=== PATIENT | male | born 1950 | race Caucasian/White ===

== ENCOUNTER → 2019-07-08 13:02 | Outpatient (CLI) | payer BC, MEDICARE | END | disposition home or self-care (01) | LOC: D.US 07-05 09:30 | PROVIDERS: ATTEND Nurse Practitioner Family | DX: I12.0 Hypertensive chronic kidney disease with stage 5 chronic kidney disease or end stage renal disease (principal); N18.3 Chronic kidney disease, stage 3 (moderate); N40.0 Benign prostatic hyperplasia without lower urinary tract symptoms ==

== ENCOUNTER → 2020-12-05 19:36 | Outpatient (CLI) | payer MEDICARE, OTHER ==
[2020-11-26 12:47] VITALS: BMI 23.6
[~2020-12-05 19:36] MED LIST: BAYER CHEWABLE81 MG PO; CIPRO500 MG PO; CLEOCIN HCL300 MG PO; COZAAR100 MG PO; FLAGYL500 MG PO; GABAPENTIN100 MG PO; GABAPENTIN300 MG PO; HYDROCODON-ACE1 EA10 PO; LEVAQUIN750 MG PO; LIPITOR20 MG PO; LISINOPRIL5 MG PO; LYRICA200 MG PO; MELATONIN10 M1 PO; MIRALAX17 GM PO; MUPIROCIN22 GM TOPICAL; NAPROSYN500 MG PO; NORVASC5 MG PO; PEPCID40 MG PO; TRAMADOL HCL E100 M1 PO; VITAMIN B-122500 MCG PO; VITAMIN D325 MC1 PO; XALATAN 0.0052.5 ML EACH EYE; ZOFRAN4 MG PO
== END | disposition home or self-care (01) ==
LOC: D.LABREF 19:36
PROVIDERS: ATTEND Orthopaedic Surgery
DX: M16.12 Unilateral primary osteoarthritis, left hip (principal)

== ENCOUNTER → 2020-12-11 13:44 | Outpatient (CLI) | payer MEDICARE, OTHER ==
[2020-11-26 12:47] VITALS: BMI 23.6
== END | disposition home or self-care (01) ==
LOC: D.LAB 13:44
PROVIDERS: ATTEND Internal Medicine Gastroenterology
DX: Z86.19 Personal history of other infectious and parasitic diseases (principal)

== ENCOUNTER 2020-12-18 06:10 | Inpatient (IN) | payer MEDICARE, OTHER ==
[2020-12-17 12:51] LABS: BASOPHILS 0.5 % (0-2); EOSINOPHILS 8.9 % (0-7); HEMATOCRIT 34.1 % (42.0-54.0); IMMATURE GRANULOCYTES 0.2 % (0-5); LYMPHOCYTE ABS# 1.92 10x3/uL (1.32-3.57); LYMPHOCYTES 23.2 % (15-50); MCHC 32.3 g/dL (31.0-37.0); MCV 92.9 fL (80.0-100.0); MEAN PLATELET VOLUME 9.9 fL (7.4-10.4); MONOCYTES 9.8 % (2-11); NEUTROPHIL ABS# 4.74 10x3/uL (1.78-5.38); NEUTROPHILS 57.4 % (40-80); PLATELET COUNT 385 10x3/uL (130-400); RBC 3.67 10x6/uL (4.20-6.10); RDW 13.1 % (11.5-14.5); WBC 8.3 10x3/uL (4.8-10.8)
[2020-12-17 12:57] LABS: BILIRUBIN NEGATIVE (NEGATIVE); KETONE NEGATIVE (NEGATIVE); NITRITE NEGATIVE (NEGATIVE)
[2020-12-17 12:57] LABS: INR 1.08 (0.85-1.17)
[2020-12-17 12:58] LABS: ANION GAP 8.4 mmol/L (8-16); APTT 36.4 SECONDS (22.8-39.4); CALCIUM 8.8 mg/dL (8.5-10.1); CARBON DIOXIDE 29.5 mmol/L (21.0-32.0); CREATININE - SERUM 1.1 mg/dL (0.6-1.3); POTASSIUM - SERUM 3.9 mmol/L (3.5-5.1)
[2020-12-17 13:02] LABS: SARS-CoV-2 ANTIGEN NEGATIVE- SARS-COV-2 (NEGATIVE)
[~2020-12-18] VITALS: Ht 162.6 cm; Wt 63.6 kg
[2020-12-18] VITALS (12 sets, daily range): BP systolic 112–148; BP diastolic 62–78; Ht 162.6 cm; Wt 63.6 kg
--- NOTE | 2020-12-18 09:18 | NUR ---
CAUTERY PAD PLACED ON RIGHT THIGH. PLASMA BLADE USED ON SETTING 6/8. AQUAMANTYS USED ON SETTING 170. CAUTERY PAD LOT#[id number] EXP. 04/05/2022
--- NOTE | 2020-12-18 11:15 | NUR ---
PT RECEIVED TO ROOM 1209 VIA BED FROM RECOVERY. PT AWAKE ALERT AND ORIENTED. PT MOVING AROUND IN BED, RESTLESS. VOICES BEING UNEASY, BUT DOZES RIGHT BACK TO SLEEP. AWAKEN TO ASSESS PT. PT ANSWERS QUESTIONS APPROPRIATELY. IV TO RIGHT WRIST WITH 1/2 NS @ 50ML/HR INFUSING VIA PUMP. SITE WITHOUT REDNESS OR EDEMA. DRESSING TO LEFT ANTERIOR HIP C/D/I. CURTIS AND SCD'S ON BILAT LOWER EXTREMITY. ORIENTED TO CL BED CONTROLS AND ROOM. CL WITHIN REACH. ENCORUAGED TO CALL WITH NEEDS.
--- NOTE | 2020-12-18 17:50 | OP ---
PATIENT NAME: HARISH CABRERA MEDICAL RECORD: [id number] :54 LOCATION:D. D.1209 ADMISSION DATE: SURGEON: ANTWAN RAI DO DATE OF OPERATION: 12/18/2020 PROCEDURE PERFORMED: Left total hip arthroplasty. PREOPERATIVE DIAGNOSIS: Left hip femoral head avascular necrosis. POSTOPERATIVE DIAGNOSIS: Left hip femoral head avascular necrosis. INDICATIONS: Mr. Cabrera is a 70-year-old male who has had left hip pain for quite some time. He has known avascular necrosis. He had an osteomyelitis of the second toe, which he got removed several months ago that healed up and he got to the point where he could not even walk on his left hip due to the pain. I informed him of the risks of this procedure including infection, bleeding, damage to nerves and vessels, need for further surgery, continued pain, fracture, failure of implants, blood clots, damage to nerves or vessels including the superficial cutaneous nerve of the lateral thigh and even and he signed the consent. SURGEON: Antwan Rai DO DESCRIPTION OF THE PROCEDURE: The patient was taken to the operative suite, laid in supine position, given general anesthetic and intubated, given 2 grams of Ancef, 80 mg of gentamicin, and a gram of TXA. He was then moved to the Windom table and positioned. The left hip was prepped and draped in sterile fashion. A timeout was performed. Everyone was in agreement with the correct side, site, patient, and procedure. I then began by making an incision over the tensor fascia eulogio muscle. Made careful dissection down to it, took the fascia anteriorly and the muscle posteriorly and then opened up the rectus interval of the rectus medially, tensor fascia eulogio laterally. I then identified the ascending branch of lateral femoral circumflex and coagulated with Aquamantys and opened up the capsule, put Hohmanns around the neck. I then opened up the capsule, tagged it, and put Hohmanns around the neck of the femur intracapsularly. Cut the femoral neck, removed the head and neck and then removed the pulvinar and ligamentum teres and the labrum. I then reamed up to a 54. A 54 cup was then impacted in and the liner was then impacted into that. I then exposed the femur using a Windom hook also and used a cookie cutter and canal finder, broached up to an 11 and reduced it and it looked a little bit of varus. We then decided to go with a bigger stem obviously and lateralized a little, got to a 12 stem and then reduced a standard neck and it fit very well, was equal lengths to the right off the lesser trochanter on the x-ray. We then dislocated that and removed the trial and irrigated and then put in the actual implant and impacted on the head with standard neck and dual mobility head and reduced it. I then irrigated with 10% povidone iodine and 500 mL of normal saline solution, let it sit for a few minutes, irrigated that out with over a liter of normal saline and then put in Giovanni and vancomycin and tobramycin powder. Closed the tensor fascia eulogio fascia with #1 Vicryl in a [id number] and then a running locking stitch. Ben Roman, certified surgical diversional therapist's assistant student then closed the skin with 2-0 Vicryl in interrupted fashion, ran 4-0 Monocryl on the skin and then put a Prineo glue on the incision. Covered with Telfa and Tegaderm. He was then awakened and taken to recovery in stable condition. OPERATIVE REPORT [id number] HARISH CABRERA BLOOD LOSS: Approximately 250 mL. COMPLICATIONS: None. TRANSINT:[id number] Voice Confirmation ID: [id number] DOCUMENT ID: [id number] ANTWAN RAI DO at 1750 CC: [id number] DICTATION DATE: 12/18/20 1036 BROKE MAN: 12/18/20 1536 [facility] [address] [place] [address]
--- NOTE | 2020-12-18 20:00 | NUR ---
ALERT RESTING IN BED, REPORTS MILD PAIN TO LEFT HIP INCISION AREA, SEE SHIFT ASSESSMENT CALL LIGHT IN REACH
[2020-12-19] VITALS: BP 94/55
[2020-12-19 04:05] VITALS: BP 96/51
[2020-12-19 06:33] LABS: BASOPHILS 0.1 % (0-2); EOSINOPHILS 0.1 % (0-7); IMMATURE GRANULOCYTES 0.3 % (0-5); LYMPHOCYTES 15.7 % (15-50); MCH 30.6 pg (26.0-34.0); MCHC 33.3 g/dL (31.0-37.0); MCV 91.7 fL (80.0-100.0); MEAN PLATELET VOLUME 9.7 fL (7.4-10.4); NEUTROPHIL ABS# 6.06 10x3/uL (1.78-5.38); NEUTROPHILS 67.8 % (40-80); RDW 12.7 % (11.5-14.5); WBC 8.9 10x3/uL (4.8-10.8)
[2020-12-19 06:39] LABS: RBC 2.29 10x6/uL (4.20-6.10)
[2020-12-19 06:40] LABS: ALBUMIN 2.5 g/dL (3.4-5.0); ALKALINE PHOSPHATASE 42 U/L (30-120); ALT (SGPT) 24 U/L (10-68); BILIRUBIN - TOTAL 0.47 mg/dL (0.2-1.3); CALC OSMOLALITY 278 mosm/kg (275-300); CALCIUM 7.8 mg/dL (8.5-10.1); CARBON DIOXIDE 27.1 mmol/L (21.0-32.0); CHLORIDE - SERUM 106 mmol/L (98-107); GLUCOSE 118 mg/dL (74-106); MAGNESIUM - SERUM 1.6 mg/dL (1.8-2.4); PHOSPHOROUS 3.2 mg/dL (2.5-4.9); PLATELET COUNT 307 10x3/uL (130-400); POTASSIUM - SERUM 4.1 mmol/L (3.5-5.1); SODIUM 139 mmol/L (136-145); UREA NITROGEN 12 mg/dL (7-18); eGFR NON AFRICAN AMERICAN 79 mL/min (90-120)
[2020-12-19 07:25] VITALS: BP 97/61
--- NOTE | 2020-12-19 07:30 | NUR ---
AWAKE AND ALERT. ORIENTED X3. NO C/O AT THIS TIME. LUNGS ARE CLEAR BILATERALLY, NO COUGH NOTED. SKIN IS INTACT WTIHOUT REDNESS EXCEPT INCISION TO LEFT GROIN WHICH HAS A DRY INTACT DRESSING IN PLACE. IV TO RIGHT WRIST IS PATENT WITHOUT REDNESS AT INSERTION SITE. DENIES NEEDS.
--- NOTE | 2020-12-19 09:00 | NUR ---
ATE 25% OF BREAKFAST TRAY. REFUSED OFFER OF ALTERNATIVE MEAL. TRANSFUSION INITIATED AT THIS TIME. VSS.
--- NOTE | 2020-12-19 09:15 | NUR ---
TRANSFUSION CONTINUES WITHOUT DIFFICULTY. VSS.
--- NOTE | 2020-12-19 09:30 | NUR ---
REQUESTED AND GIVEN ONE PERCOCET PO FOR C/O LEFT HIP PAIN LEVEL 6. WILL MONITOR.
--- NOTE | 2020-12-19 11:00 | NUR ---
TRANSFUSION CONTINUES WITHOUT COMPLICATIONS. VSS.
--- NOTE | 2020-12-19 11:40 | NUR ---
TRANSFUSION COMPLETED. VSS. SECOND UNIT PRBC UP AT THIS TIME.
--- NOTE | 2020-12-19 11:55 | NUR ---
TRANSFUSION CONTINUES WITHOUT COMPLICATIONS. VSS.
[2020-12-19 11:57] VITALS: BP 115/68
--- NOTE | 2020-12-19 13:00 | NUR ---
ATE ABOUT 25% OF BREAKFAST. DENIES NEEDS. TRANSFUSION CONTINUES WITHOUT COMPLICATIONS. VSS.
--- NOTE | 2020-12-19 13:45 | NUR ---
REQUESTED AND GIVEN ONE PERCOCET PO FOR C/O LEFT HIP PAIN LEVEL 6. WILL MONITOR.
--- NOTE | 2020-12-19 14:30 | NUR ---
TRANSFUSION COMPLETED. VSS. NO SIGNS OF COMPLICATIONS. DENIES NEEDS.
--- NOTE | 2020-12-19 15:45 | NUR ---
RESTING QUIETLY IN BED. DENIES NEEDS.
[2020-12-19 16:19] VITALS: BP 107/79
--- NOTE | 2020-12-19 18:12 | NUR ---
ATE MOST OF SUPPER. DENIES NEEDS. NO CHANGES NOTED.
[2020-12-19 19:52] VITALS: BP 110/68
--- NOTE | 2020-12-19 20:00 | NUR ---
ALERT RESTING IN BED, MEDICATED FOR PAIN, SEE SHIFT ASSESSMENT, CALL LIGHT IN REACH
[2020-12-20 02:30] VITALS: BP 116/65
--- NOTE | 2020-12-20 02:59 | NUR ---
BED ALARM SOUNDING PT FOUND SITTING IN FLOOR BESIDE BED STATES GOT UP TO USE URINAL AND FORGOT TO TAKE OFF SCD'S AND GOT TANGLED IN CORDS AND SIT DOWN IN FLOOR, FLOOR NOTED TO BED WET FROM SPILLED CUPS ON BEDSIDE TABLE, DENIES PAIN OR INJURY, ASSISTED TO STAND AND ASSISTED BACK TO BED NO APPARENT INJURIES, DR RAI NOTIFIED ORDERS RECIEVED FOR XRAY OF LEFT HIP RADIOLOGY NOTIFIED, PT STATES HAS NO FAMILY TO NOTIFY, BED ALARM ON AND CALL LIGHT IN REACH
[2020-12-20 04:45] VITALS: BP 100/57
[2020-12-20 06:55] LABS: ALBUMIN 2.6 g/dL (3.4-5.0); ALKALINE PHOSPHATASE 51 U/L (30-120); ALT (SGPT) 24 U/L (10-68); CALC OSMOLALITY 276 mosm/kg (275-300); CALCIUM 8.3 mg/dL (8.5-10.1); CHLORIDE - SERUM 106 mmol/L (98-107); GLUCOSE 87 mg/dL (74-106); MAGNESIUM - SERUM 1.7 mg/dL (1.8-2.4); PHOSPHOROUS 3.6 mg/dL (2.5-4.9); POTASSIUM - SERUM 3.9 mmol/L (3.5-5.1); PROTEIN - SERUM 5.4 g/dL (6.4-8.2); SODIUM 140 mmol/L (136-145); UREA NITROGEN 11 mg/dL (7-18); eGFR NON AFRICAN AMERICAN 79 mL/min (90-120)
--- NOTE | 2020-12-20 07:30 | NUR ---
AWAKE AND ALERT. ORIENTED X3. NO C/O AT THIS TIME. LUNGS ARE CLEAR BILATERALLY, NO COUGH NOTED. REPORTED USED IS INSTRUCTED. SKIN IS INTACT WITHOUT REDNESS EXCEPT INCISION TO LEFT GROIN AREA WHICH HAS A DRY INTACT DRESSING IN PLACE. SL TO RIGHT WRIST IS PATENT WITHOUT REDNESS AT INSERTION SITE. DENIES NEEDS.
[2020-12-20 07:41] LABS: BASOPHILS 0.3 % (0-2); EOSINOPHILS 3.5 % (0-7); IMMATURE GRANULOCYTES 0.8 % (0-5); LYMPHOCYTE ABS# 1.88 10x3/uL (1.32-3.57); LYMPHOCYTES 19.5 % (15-50); MCH 29.9 pg (26.0-34.0); MCHC 33.6 g/dL (31.0-37.0); MEAN PLATELET VOLUME 9.7 fL (7.4-10.4); MONOCYTES 19.5 % (2-11); NEUTROPHIL ABS# 5.43 10x3/uL (1.78-5.38); NEUTROPHILS 56.4 % (40-80); PLATELET COUNT 303 10x3/uL (130-400); RDW 15.1 % (11.5-14.5); WBC 9.6 10x3/uL (4.8-10.8)
[2020-12-20 07:43] VITALS: BP 123/71
[2020-12-20 07:45] LABS: HEMATOCRIT 29.8 % (42.0-54.0); MCV 89.2 fL (80.0-100.0); RBC 3.34 10x6/uL (4.20-6.10)
--- NOTE | 2020-12-20 08:14 | NUR ---
REQUESTED AND GIVEN ONE PERCOCET PO FOR C/O LEFT HIP PAIN LEVEL 6. WILL MONITOR. BREAKFAST SERVED IN ROOM.
--- NOTE | 2020-12-20 12:03 | MORECARE ---
CASE MANAGEMENT DISCHARGE SUMMARY PATIENT: HARISH CABRERA UNIT: [id number] ADM DATE: 12/19/20 AGE: 70 : 52 SEX: M ROOM/BED: D.1209 AUTHOR: MARCIE MARCUS PHYSICIAN: REFERRING PHYSICIAN: GLENDA RAI DO DATE OF SERVICE: 12/20/20 Case Management Discharge Planning Summary DCP REVIEW SUMMARY ANTICIPATED D/C DATE: EXPECTED LOS : CASE STATUS: DCP Initiated INITIAL REVIEW: 12/19/2020 INITIAL REVIEWER: Shara Nunes FINAL DISCHARGE DISPOSITION: : FINAL REVIEWER: FINAL REVIEW DATE: DCP Focus Questions & Answers - Added on: QUESTION: ANSWER : PROVIDER NETWORKING REVIEW DATE: 12/20/2020 SERVICE TYPE: Home Health Care REVIEWER: Shara Nunes REVIEW DATE: 12/20/2020 SERVICE TYPE: Durable Medical Equipment REVIEWER: Shara Nunes PROVIDER: FINAL PROVIDER? : FINAL DATE/TIME: CT PATIENT: HARISH CABRERA ENCOUNTER: [id number] MEDICAL RECORD#: [id number] ADMISSION DATE: 12/19/2020 DISCHARGE DATE: ATTENDING MD: GLENDA GEORGE : AGE: 70 MARITAL STATUS: M DC PLAN ID: [id number] FACILITY: [facility] PRINTED ON: 12/20/20 12:03 CT All edits/amendments must be made on the electronic document DICTATION DATE: 12/20/201202 CNC SUPERVISOR: DM 12/20/20 1203 RPT#: [id number] DC DATE: STATUS: ADM IN [facility] [address] [place] [address] END OF REPORT
--- NOTE | 2020-12-20 12:21 | NUR ---
CM met with patient at bedside after obtaining verbal consent. CM discussed availability / needs of home health, REHAB and medical equipment. Patient would like care 4 for PT. He also needs a bedside commode. I have faxed to [place] for them to deliver to his home. ROBERT signed and copy on chart. CM to follow and assist as needed.
--- NOTE | 2020-12-20 12:28 | MORECARE ---
CASE MANAGEMENT DISCHARGE SUMMARY PATIENT: HARISH CABRERA UNIT: [id number] ADM DATE: 12/19/20 AGE: 70 : 52 SEX: M ROOM/BED: D.1209 AUTHOR: AMRIT,DOC PHYSICIAN: REFERRING PHYSICIAN: GLENDA RAI DO DATE OF SERVICE: 12/20/20 Case Management Discharge Planning Summary COMMENTS ENTERED DATE: 12/20/20 12:20 CT COMMENT TYPE: Discharge Planning REVIEWER: Shara Nunes CM met with patient at bedside after obtaining verbal consent. CM discussed availability / needs of home health, REHAB and medical equipment. Patient would like care [facility] for PT. He also needs a bedside commode. I have faxed to [place] [facility] for them to deliver to his home. ROBERT signed and copy on chart. CM to follow and assist as needed. DCP REVIEW SUMMARY ANTICIPATED D/C DATE: EXPECTED LOS : CASE STATUS: DCP Initiated INITIAL REVIEW: 12/19/2020 INITIAL REVIEWER: Shara Nunes FINAL DISCHARGE DISPOSITION: : FINAL REVIEWER: FINAL REVIEW DATE: DCP Focus Questions & Answers - Added on: QUESTION: ANSWER : PROVIDER NETWORKING REVIEW DATE: 12/20/2020 SERVICE TYPE: Home Health Care REVIEWER: Shara Nunes REVIEW DATE: 12/20/2020 SERVICE TYPE: Durable Medical Equipment REVIEWER: Shara Nunes PROVIDER: FINAL PROVIDER? : FINAL DATE/TIME: CT PATIENT: HARISH CABRERA ENCOUNTER: [id number] MEDICAL RECORD#: [id number] ADMISSION DATE: 12/19/2020 DISCHARGE DATE: ATTENDING MD: GLENDA GEORGE : AGE: 70 MARITAL STATUS: M DC PLAN ID: [id number] FACILITY: [facility] PRINTED ON: 12/20/20 12:28 CT All edits/amendments must be made on the electronic document DICTATION DATE: 12/20/201227 SOFTWARE DEVELOPER MANAGER: AYDEN 12/20/201227 RPT#: [id number] DC DATE: STATUS: ADM IN [facility] [address] [place] [address] END OF REPORT
[2020-12-20] MEDS ORDERED: ELIQUIS2.5 MG PO (13:04)
[2020-12-20] MEDS ORDERED: PERCOCET 10-321 EAC1 PO (13:05)
--- OUTSIDE RECORDS SUMMARY | 2020-12-20 13:28 | XMS Report ---
Demographics + + + | Address | [address] | | | [place], [place] [address] | + + + | Home Phone | | + + + | Preferred Language | Unknown | + + + | Marital Status | | + + + | Catholic Affiliation | Unknown | + + + | Race | White | + + + | Ethnic Group | Not or | + + + Author + + + | Author | [facility], | | | [facility] | | | [place] | + + + | Organization | [facility], | | | [facility] | | | [place] | + + + | Address | [address] | | | [place] [address] | | | | + + + | Phone | [phone] | + + + Care Team Providers + +------+ + | Care Workers Compensation Attorney Name | Role | Phone | + +------+ + | ANDRÉS CABALLERO | 3 | [phone] | + +------+ + | ANDRÉS CABALLERO | 4 | [phone] | + +------+ + Reason for Referral Reason for Visit Avascular necrosis of bone of hip Assessment No assessment recorded. Patient Targets + + + + | Encounter Date | Instructions | Goals | | | | | | | | | + + + + | 12/20/2020 | | | | | | | | | | | + + + + Plan of Treatment + + + + + + + | Reminders | | Order | Submit | Provider | Details | | | | Date | Date | | | | | | | | | | | | | | | | | | | | | | | | | | | | | | | + + + + + + + | | | | | | | | | | | | Agueda | | | | | 1 09:20AM | | Felisha | | | | | | | , [employer]PERVIS[employer] | | | | POST | | | | | | Appointme | OP VISIT | | | | | | nts | | | | | | | | | | | | | | | | | | | | | | | | | | | | | | | | | | | | | | | | | | | | | | | | | | | | | | | | | | | | | | + + + + + + + | | None | | | | | | | recorded. | | | | | | | | | | | | | | | | | | | | Lab | | | | | | | | | | | | | | | | | | | | | | | | | | | | | | | | | | | | | | | | | | | | | | | | | | | | | | | | | | | | | | + + + + + + + | | | | | | | | | | | | National | | | | | 1 | | Park | | | | | | 1 | Medical | | | | | | | Center, | | | Referral | orthopedi | | | [address] | | | | c | | | Medical | | | | referral | | | Pk, Hot | | | | | | | [place], | | | | | | | [place], | | | | | | | [address], Ph | | | | | | | (501) | | | | | | | [phone] | | | | | | | | | | | | | | | | | | | | | | | | | | | | | | + + + + + + + | | None | | | | | | | recorded. | | | | | | | | | | | | | | | | | | | | | | | | | | | Procedure | | | | | | | s | | | | | | | | | | | | | | | | | | | | | | | | | | | | | | | | | | | | | | | | | | | | | | | | | | | | | | | | | | | | | | + + + + + + + | | None | | | | | | | recorded. | | | | | | | | | | | | | | | | | | | | | | | | | | | Surgeries | | | | | | | | | | | | | | | | | | | | | | | | | | | | | | | | | | | | | | | | | | | | | | | | | | | | | | | | | | | | | | + + + + + + + | | None | | | | | | | recorded. | | | | | | | | | | | | | | | | | | | | | | | | | | | Imaging | | | | | | | | | | | | | | | | | | | | | | | | | | | | | | | | | | | | | | | | | | | | | | | | | | | | | | | | | | | | | | + + + + + + + Results +--------+--------+--------+--------+--------+--------+--------+--------+ | Date | Name | Descri | Value | Unit | Range | Abnorm | Provid | | | | ption | | | | al | er | | | | | | | | Flag | Detail | | | | | | | | | | | | | | | | | | | | | | | | | | | | | | | | | | | | | | | | | | | | | | | | | | | | | | | +--------+--------+--------+--------+--------+--------+--------+--------+ | 03/15/ | CBC w/ | | 0.5 | % | 0-2 | normal | | | 2021 | auto | | | | | | | | | diff | | | | | | | | | | | | | | | | | | | | | | | | | | | | | | | | | | | | | | | | | | | | | | basoph | | | | | Nation | | | | il % | | | | | al | | | | | | | | | Park | | | | | | | | | Medica | | | | | | | | | l | | | | | | | | | Center | | | | | | | | | | | | | | | | | | | | | | | | | | | | | | | | | | | | | | | | | | | | | | | | | | | | | | | | | | | | | | | | | | | | | | | | | | | | | | | | | | | | | | | | | | | | | | | | | | | | | | | | | | | | | | | | | | | | | | | | | | | | | | | | | | | | | | | 1908 | | | | | | | | | [address] | | | | | [address] | [address], | | | | | | | | | Hot | | | | | | | | | Spring | | | | | | | | | s, [place], | | | | | | | | | | | | | | | | | | [address]- | | | | | | | | | [address], | | | | | | | | | Ph | | | | | | | | | (501) | | | | | | | | | 321[address]10 | | | | | | | | | 00 | | | | | | | | | | | | | | | | | | | | | | | | | | | | | | | | | | | | | | | | | | | | | | | | | | | | | | | | | | | | | | | | | | | | | | | | | | | | | | | | | | | | | | | | | | | | | | | | | | | | +--------+--------+--------+--------+--------+--------+--------+--------+ | 03/15/ | CBC w/ | | 8.9 | % | 0-7 | high | | | 2021 | auto | | | | | | | | | diff | | | | | | | | | | | | | | | | | | | | | | | | | | | | | | | | | | | | | | | | | | | | | | eosino | | | | | Nation | | | | phils | | | | | al | | | | | | | | | Park | | | | | | | | | Medica | | | | | | | | | l | | | | | | | | | Center | | | | | | | | | | | | | | | | | | | | | | | | | | | | | | | | | | | | | | | | | | | | | | | | | | | | | | | | | | | | | | | | | | | | | | | | | | | | | | | | | | | | | | | | | | | | | | | | | | | | | | | | | | | | | | | | | | | | | | | | | | | | | | | | | | | | | | | 1908 | | | | | | | | | [address] | | | | | | | | | [address], | | | | | | | | | Hot | | | | | | | | | Spring | | | | | | | | | s, [place], | | | | | | | | | | | | | | | | | | [address]- | | | | | | | | | [address], | | | | | | | | | Ph | | | | | | | | | (501) | | | | | | | | | 321[address]10 | | | | | | | | | 00 | | | | | | | | | | | | | | | | | | | | | | | | | | | | | | | | | | | | | | | | | | | | | | | | | | | | | | | | | | | | | | | | | | | | | | | | | | | | | | | | | | | | | | | | | | | | | | | | | | | | +--------+--------+--------+--------+--------+--------+--------+--------+ | 03/15/ | CBC w/ | | 34.1 | % | 42.0-5 | low | | | 2021 | auto | | | | 4.0 | | | | | diff | | | | | | | | | | | | | | | | | | | | | | | | | | | | | | | | | | | | | | | | | | | | | | HCT | | | | | Nation | | | | vfr | | | | | al | | | | bld | | | | | Park | | | | auto | | | | | Medica | | | | | | | | | l | | | | | | | | | Center | | | | | | | | | | | | | | | | | | | | | | | | | | | | | | | | | | | | | | | | | | | | | | | | | | | | | | | | | | | | | | | | | | | | | | | | | | | | | | | | | | | | | | | | | | | | | | | | | | | | | | | | | | | | | | | | | | | | | | | | | | | | | | | | | | | | | | | 1908 | | | | | | | | | [address] | | | | | | | | | [address], | | | | | | | | | Hot | | | | | | | | | Spring | | | | | | | | | s, [place], | | | | | | | | | | | | | | | | | | [address]- | | | | | | | | | [address], | | | | | | | | | Ph | | | | | | | | | (501) | | | | | | | | | 321[address]10 | | | | | | | | | 00 | | | | | | | | | | | | | | | | | | | | | | | | | | | | | | | | | | | | | | | | | | | | | | | | | | | | | | | | | | | | | | | | | | | | | | | | | | | | | | | | | | | | | | | | | | | | | | | | | | | | +--------+--------+--------+--------+--------+--------+--------+--------+ | 03/15/ | CBC w/ | | 11.0 | g/dL | 13.5-1 | low | | | 2021 | auto | | | | 7.5 | | | | | diff | | | | | | | | | | | | | | | | | | | | | | | | | | | | | | | | | | | | | | | | | | | | | | hemogl | | | | | Nation | | | | obin | | | | | al | | | | | | | | | Park | | | | | | | | | Medica | | | | | | | | | l | | | | | | | | | Center | | | | | | | | | | | | | | | | | | | | | | | | | | | | | | | | | | | | | | | | | | | | | | | | | | | | | | | | | | | | | | | | | | | | | | | | | | | | | | | | | | | | | | | | | | | | | | | | | | | | | | | | | | | | | | | | | | | | | | | | | | | | | | | | | | | | | | | [address] | | | | | | | | | [address] | | | | | | | | | Hot | | | | | | | | | Spring | | | | | | | | | s, [place], | | | | | | | | | | | | | | | | | | [address]- | | | | | | | | | [address], | | | | | | | | | Ph | | | | | | | | | (501) | | | | | | | | | 321[address]10 | | | | | | | | | 00 | | | | | | | | | | | | | | | | | | | | | | | | | | | | | | | | | | | | | | | | | | | | | | | | | | | | | | | | | | | | | | | | | | | | | | | | | | | | | | | | | | | | | | | | | | | | | | | | | | | | +--------+--------+--------+--------+--------+--------+--------+--------+ | 03/15/ | CBC w/ | | 0.2 | % | 0-5 | normal | | | 2021 | auto | | 0.2 | | | | | | | diff | | | | | | | | | | | | | | | | | | | | | | | | | | | | | | | | | | | | | | | | | | | | | | imm | | | | | Nation | | | | granul | | | | | al | | | | ocytes | | | | | Park | | | | bld | | | | | Medica | | | | ql | | | | | l | | | | auto | | | | | Center | | | | | | | | | | | | | | | | | | | | | | | | | | | | | | | | | | | | | | | | | | | | | | | | | | | | | | | | | | | | | | | | | | | | | | | | | | | | | | | | | | | | | | | | | | | | | | | | | | | | | | | | | | | | | | | | | | | | | | | | | | | | | | | | | | | | | | | 1908 | | | | | | | | | [address] | | | [address] | | | | | | | | | Hot | | | | | | | | | Spring | | | | | | | | | s, [place], | | | | | | | | | | | | | | | | | | [address]- | | | | | | | | | [address], | | | | | | | | | Ph | | | | | | | | | (501) | | | | | | | | | 321[address]10 | | | | | | | | | 00 | | | | | | | | | | | | | | | | | | | | | | | | | | | | | | | | | | | | | | | | | | | | | | | | | | | | | | | | | | | | | | | | | | | | | | | | | | | | | | | | | | | | | | | | | | | | | | | | | | | | +--------+--------+--------+--------+--------+--------+--------+--------+ | 03/15/ | CBC w/ | | 1.92 | 10x3/u | 1.32-3 | normal | | | 2021 | auto | | | L | .57 | | | | | diff | | | | | | | | | | | | | | | | | | | | | | | | | | | | | | | | | | | | | | | | | | | | | | absolu | | | | | Nation | | | | te | | | | | al | | | | lympho | | | | | Park | | | | cyte | | | | | Medica | | | | count | | | | | l | | | | | | | | | Center | | | | | | | | | | | | | | | | | | | | | | | | | | | | | | | | | | | | | | | | | | | | | | | | | | | | | | | | | | | | | | | | | | | | | | | | | | | | | | | | | | | | | | | | | | | | | | | | | | | | | | | | | | | | | | | | | | | | | | | | | | | | | | | | | | | | | | | [address] | | | | | | | | | [address] | | | | | | | | | Hot | | | | | | | | | Spring | | | | | | | | | s, [place], | | | | | | | | | | | | | | | | | | [address]- | | | | | | | | | [address], | | | | | | | | | Ph | | | | | | | | | (501) | | | | | | | | | 321[address]10 | | | | | | | | | 00 | | | | | | | | | | | | | | | | | | | | | | | | | | | | | | | | | | | | | | | | | | | | | | | | | | | | | | | | | | | | | | | | | | | | | | | | | | | | | | | | | | | | | | | | | | | | | | | | | | | | +--------+--------+--------+--------+--------+--------+--------+--------+ | 03/15/ | CBC w/ | | 23.2 | % | 15-50 | normal | | | 2021 | auto | | | | | | | | | diff | | | | | | | | | | | | | | | | | | | | | | | | | | | | | | | | | | | | | | | | | | | | | | lympho | | | | | Nation | | | | cytes | | | | | al | | | | | | | | | Park | | | | | | | | | Medica | | | | | | | | | l | | | | | | | | | Center | | | | | | | | | | | | | | | | | | | | | | | | | | | | | | | | | | | | | | | | | | | | | | | | | | | | | | | | | | | | | | | | | | | | | | | | | | | | | | | | | | | | | | | | | | | | | | | | | | | | | | | | | | | | | | | | | | | | | | | | | | | | | | | | | | | | | | | [address] | | | | | | | | | [address] | | | | | | | | | Hot | | | | | | | | | Spring | | | | | | | | | s, [place], | | | | | | | | | | | | | | | | | | [address]- | | | | | | | | | [address], | | | | | | | | | Ph | | | | | | | | | (501) | | | | | | | | | 321[address]10 | | | | | | | | | 00 | | | | | | | | | | | | | | | | | | | | | | | | | | | | | | | | | | | | | | | | | | | | | | | | | | | | | | | | | | | | | | | | | | | | | | | | | | | | | | | | | | | | | | | | | | | | | | | | | | | | +--------+--------+--------+--------+--------+--------+--------+--------+ | 03/15/ | CBC w/ | | 30.0 | pg | 26.0-3 | normal | | | 2021 | auto | | | | 4.0 | | | | | diff | | | | | | | | | | | | | | | | | | | | | | | | | | | | | | | | | | | | | | | | | | | | | | [facility] | | | | | Nation | | | | | | | | | al | | | | | | | | | Park | | | | | | | | | Medica | | | | | | | | | l | | | | | | | | | Center | | | | | | | | | | | | | | | | | | | | | | | | | | | | | | | | | | | | | | | | | | | | | | | | | | | | | | | | | | | | | | | | | | | | | | | | | | | | | | | | | | | | | | | | | | | | | | | | | | | | | | | | | | | | | | | | | | | | | | | | | | | | | | | | | | | | | | | [address] | | | | | | | | | [address] | | | | | | | | | Hot | | | | | | | | | Spring | | | | | | | | | s, [place], | | | | | | | | | | | | | | | | | | [address]- | | | | | | | | | [address], | | | | | | | | | Ph | | | | | | | | | (501) | | | | | | | | | 321[address]10 | | | | | | | | | 00 | | | | | | | | | | | | | | | | | | | | | | | | | | | | | | | | | | | | | | | | | | | | | | | | | | | | | | | | | | | | | | | | | | | | | | | | | | | | | | | | | | | | | | | | | | | | | | | | | | | | +--------+--------+--------+--------+--------+--------+--------+--------+ | 03/15/ | CBC w/ | | 32.3 | g/dL | 31.0-3 | normal | | | 2021 | auto | | | | 7.0 | | | | | diff | | | | | | | | | | | | | | | | | | | | | | | | | | | | | | | | | | | | | | | | | | | | | | [facility] | | | | | Nation | | | | RBC | | | | | al | | | | auto-m | | | | | Park | | | | cnc | | | | | Medica | | | | | | | | | l | | | | | | | | | Center | | | | | | | | | | | | | | | | | | | | | | | | | | | | | | | | | | | | | | | | | | | | | | | | | | | | | | | | | | | | | | | | | | | | | | | | | | | | | | | | | | | | | | | | | | | | | | | | | | | | | | | | | | | | | | | | | | | | | | | | | | | | | | | | | | | | | | | [address] | | | | | | | | | [address] | | [address] | | | | | | | | | Hot | | | | | | | | | Spring | | | | | | | | | s, [place], | | | | | | | | | | | | | | | | | | [address]- | | | | | | | | | [address], | | | | | | | | | Ph | | | | | | | | | (501) | | | | | | | | | 321[address]10 | | | | | | | | | 00 | | | | | | | | | | | | | | | | | | | | | | | | | | | | | | | | | | | | | | | | | | | | | | | | | | | | | | | | | | | | | | | | | | | | | | | | | | | | | | | | | | | | | | | | | | | | | | | | | | | | +--------+--------+--------+--------+--------+--------+--------+--------+ | 03/15/ | CBC w/ | | 92.9 | fL | 80.0-1 | normal | | | 2021 | auto | | | | 00.0 | | | | | diff | | | | | | | | | | | | | | | | | | | | | | | | | | | | | | | | | | | | | | | | | | | | | | MCV | | | | | Nation | | | | | | | | | al | | | | | | | | | Park | | | | | | | | | Medica | | | | | | | | | l | | | | | | | | | Center | | | | | | | | | | | | | | | | | | | | | | | | | | | | | | | | | | | | | | | | | | | | | | | | | | | | | | | | | | | | | | | | | | | | | | | | | | | | | | | | | | | | | | | | | | | | | | | | | | | | | | | | | | | | | | | | | | | | | | | | | | | | | | | | | | | | | | | [address] | | | | | | | | | [address] | | [address], | | | | | | | | | Hot | | | | | | | | | Spring | | | | | | | | | s, [place], | | | | | | | | | | | | | | | | | | [address]- | | | | | | | | | [address], | | | | | | | | | Ph | | | | | | | | | (501) | | | | | | | | | 321[address]10 | | | | | | | | | 00 | | | | | | | | | | | | | | | | | | | | | | | | | | | | | | | | | | | | | | | | | | | | | | | | | | | | | | | | | | | | | | | | | | | | | | | | | | | | | | | | | | | | | | | | | | | | | | | | | | | | +--------+--------+--------+--------+--------+--------+--------+--------+ | 03/15/ | CBC w/ | | 9.8 | % | 2-11 | normal | | | 2021 | auto | | | | | | | | | diff | | | | | | | | | | | | | | | | | | | | | | | | | | | | | | | | | | | | | | | | | | | | | | monocy | | | | | Nation | | | | jeyson | | | | | al | | | | | | | | | Park | | | | | | | | | Medica | | | | | | | | | l | | | | | | | | | Center | | | | | | | | | | | | | | | | | | | | | | | | | | | | | | | | | | | | | | | | | | | | | | | | | | | | | | | | | | | | | | | | | | | | | | | | | | | | | | | | | | | | | | | | | | | | | | | | | | | | | | | | | | | | | | | | | | | | | | | | | | | | | | | | | | | | | | | [address] | | | | | | | | | [address] | | | | | | | | | Hot | | | | | | | | | Spring | | | | | | | | | s, [place], | | | | | | | | | | | | | | | | | | [address]- | | | | | | | | | [address], | | | | | | | | | Ph | | | | | | | | | (501) | | | | | | | | | 321[address]10 | | | | | | | | | 00 | | | | | | | | | | | | | | | | | | | | | | | | | | | | | | | | | | | | | | | | | | | | | | | | | | | | | | | | | | | | | | | | | | | | | | | | | | | | | | | | | | | | | | | | | | | | | | | | | | | | +--------+--------+--------+--------+--------+--------+--------+--------+ | 03/15/ | CBC w/ | | 9.9 | fL | 7.4-10 | normal | | | 2021 | auto | | | | .4 | | | | | diff | | | | | | | | | | | | | | | | | | | | | | | | | | | | | | | | | | | | | | | | | | | | | | mean | | | | | Nation | | | | platel | | | | | al | | | | et | | | | | Park | | | | volume | | | | | Medica | | | | | | | | | l | | | | | | | | | Center | | | | | | | | | | | | | | | | | | | | | | | | | | | | | | | | | | | | | | | | | | | | | | | | | | | | | | | | | | | | | | | | | | | | | | | | | | | | | | | | | | | | | | | | | | | | | | | | | | | | | | | | | | | | | | | | | | | | | | | | | | | | | | | | | | | | | | | [address] | | | | | | | | | [address] | | | | | | | | | Hot | | | | | | | | | Spring | | | | | | | | | s, [place], | | | | | | | | | | | | | | | | | | [address]- | | | | | | | | | [address]752, | | | | | | | | | Ph | | | | | | | | | (501) | | | | | | | | | 321[address]10 | | | | | | | | | 00 | | | | | | | | | | | | | | | | | | | | | | | | | | | | | | | | | | | | | | | | | | | | | | | | | | | | | | | | | | | | | | | | | | | | | | | | | | | | | | | | | | | | | | | | | | | | | | | | | | | | +--------+--------+--------+--------+--------+--------+--------+--------+ | 03/15/ | CBC w/ | | 4.74 | 10x3/u | 1.78-5 | normal | | | 2021 | auto | | | L | .38 | | | | | diff | | | | | | | | | | | | | | | | | | | | | | | | | | | | | | | | | | | | | | | | | | | | | | neutro | | | | | Nation | | | | jessie | | | | | al | | | | abs# | | | | | Park | | | | | | | | | Medica | | | | | | | | | l | | | | | | | | | Center | | | | | | | | | | | | | | | | | | | | | | | | | | | | | | | | | | | | | | | | | | | | | | | | | | | | | | | | | | | | | | | | | | | | | | | | | | | | | | | | | | | | | | | | | | | | | | | | | | | | | | | | | | | | | | | | | | | | | | | | | | | | | | | | | | | | | | | 1908 | | | | | | | | | [address] | | | | | | | | | [address], | | | | | | | | | Hot | | | | | | | | | Spring | | | | | | | | | s, [place], | | | | | | | | | | | | | | | | | | [address]- | | | | | | | | | [address]752, | | | | | | | | | Ph | | | | | | | | | (501) | | | | | | | | | 321-10 | | | | | | | | | 00 | | | | | | | | | | | | | | | | | | | | | | | | | | | | | | | | | | | | | | | | | | | | | | | | | | | | | | | | | | | | | | | | | | | | | | | | | | | | | | | | | | | | | | | | | | | | | | | | | | | | +--------+--------+--------+--------+--------+--------+--------+--------+ | 03/15/ | CBC w/ | | 57.4 | % | 40-80 | normal | | | 2021 | auto | | | | | | | | | diff | | | | | | | | | | | | | | | | | | | | | | | | | | | | | | | | | | | | | | | | | | | | | | neutro | | | | | Nation | | | | phils | | | | | al | | | | nfr | | | | | Park | | | | bld | | | | | [facility] | | | | auto | | | | | l | | | | | | | | | Center | | | | | | | | | | | | | | | | | | | | | | | | | | | | | | | | | | | | | | | | | | | | | | | | | | | | | | | | | | | | | | | | | | | | | | | | | | | | | | | | | | | | | | | | | | | | | | | | | | | | | | | | | | | | | | | | | | | | | | | | | | | | | | | | | | | | | | | 1908 | | | | | | | | | [address] | | | | [address] | [address], | | | | | | | | | Hot | | | | | | | | | Spring | | | | | | | | | s, [place], | | | | | | | | | | | | | | | | | | [address]- | | | | | | | | | [address]752, | | | | | | | | | Ph | | | | | | | | | (501) | | | | | | | | | 321-10 | | | | | | | | | 00 | | | | | | | | | | | | | | | | | | | | | | | | | | | | | | | | | | | | | | | | | | | | | | | | | | | | | | | | | | | | | | | | | | | | | | | | | | | | | | | | | | | | | | | | | | | | | | | | | | | | +--------+--------+--------+--------+--------+--------+--------+--------+ | 03/15/ | CBC w/ | | 385 | 10x3/u | 130-40 | normal | | | 2021 | auto | | | L | 0 | | | | | diff | | | | | | | | | | | | | | | | | | | | | | | | | | | | | | | | | | | | | | | | | | | | | | platel | | | | | Nation | | | | et # | | | | | al | | | | bld | | | | | Park | | | | auto | | | | | [facility] | | | | | | | | | l | | | | | | | | | Center | | | | | | | | | | | | | | | | | | | | | | | | | | | | | | | | | | | | | | | | | | | | | | | | | | | | | | | | | | | | | | | | | | | | | | | | | | | | | | | | | | | | | | | | | | | | | | | | | | | | | | | | | | | | | | | | | | | | | | | | | | | | | | | | | | | | | | | 1908 | | | | | | | | | [address] | | | [address], | | | | | | | | | Hot | | | | | | | | | Spring | | | | | | | | | s, [place], | | | | | | | | | | | | | | | | | | [address]- | | | | | | | | | [address], | | | | | | | | | Ph | | | | | | | | | (501) | | | | | | | | | 321-10 | | | | | | | | | 00 | | | | | | | | | | | | | | | | | | | | | | | | | | | | | | | | | | | | | | | | | | | | | | | | | | | | | | | | | | | | | | | | | | | | | | | | | | | | | | | | | | | | | | | | | | | | | | | | | | | | +--------+--------+--------+--------+--------+--------+--------+--------+ | 03/15/ | CBC w/ | | 3.67 | 10x6/u | 4.20-6 | low | | | 2021 | auto | | | L | .10 | | | | | diff | | | | | | | | | | | | | | | | | | | | | | | | | | | | | | | | | | | | | | | | | | | | | | RBC # | | | | | Nation | | | | bld | | | | | al | | | | auto | | | | | Park | | | | | | | | | [facility] | | | | | | | | | l | | | | | | | | | Center | | | | | | | | | | | | | | | | | | | | | | | | | | | | | | | | | | | | | | | | | | | | | | | | | | | | | | | | | | | | | | | | | | | | | | | | | | | | | | | | | | | | | | | | | | | | | | | | | | | | | | | | | | | | | | | | | | | | | | | | | | | | | | | | | | | | | | | 1908 | | | | | | | | | [address] | | | [address], | | | | | | | | | Hot | | | | | | | | | Spring | | | | | | | | | s, [place], | | | | | | | | | | | | | | | | | | [address]- | | | | | | | | | [address], | | | | | | | | | Ph | | | | | | | | | (501) | | | | | | | | | 321-10 | | | | | | | | | 00 | | | | | | | | | | | | | | | | | | | | | | | | | | | | | | | | | | | | | | | | | | | | | | | | | | | | | | | | | | | | | | | | | | | | | | | | | | | | | | | | | | | | | | | | | | | | | | | | | | | | +--------+--------+--------+--------+--------+--------+--------+--------+ | 03/15/ | CBC w/ | | 13.1 | % | 11.5-1 | normal | | | 2021 | auto | | | | 4.5 | | | | | diff | | | | | | | | | | | | | | | | | | | | | | | | | | | | | | | | | | | | | | | | | | | | | | RDW | | | | | Nation | | | | RBC | | | | | al | | | | auto-R | | | | | Park | | | | TO | | | | | [facility] | | | | | | | | | l | | | | | | | | | Center | | | | | | | | | | | | | | | | | | | | | | | | | | | | | | | | | | | | | | | | | | | | | | | | | | | | | | | | | | | | | | | | | | | | | | | | | | | | | | | | | | | | | | | | | | | | | | | | | | | | | | | | | | | | | | | | | | | | | | | | | | | | | | | | | | | | | | | 1908 | | | | | | | | | [address] | | | | | | | | [address], | | | | | | | | | Hot | | | | | | | | | Spring | | | | | | | | | s, [place], | | | | | | | | | | | | | | | | | | [address]- | | | | | | | | | [address], | | | | | | | | | Ph | | | | | | | | | (501) | | | | | | | | | 321-10 | | | | | | | | | 00 | | | | | | | | | | | | | | | | | | | | | | | | | | | | | | | | | | | | | | | | | | | | | | | | | | | | | | | | | | | | | | | | | | | | | | | | | | | | | | | | | | | | | | | | | | | | | | | | | | | | +--------+--------+--------+--------+--------+--------+--------+--------+ | 03/15/ | CBC w/ | | 8.3 | 10x3/u | 4.8-10 | normal | | | 2021 | auto | | | L | .8 | | | | | diff | | | | | | | | | | | | | | | | | | | | | | | | | | | | | | | | | | | | | | | | | | | | | | WBC | | | | | Nation | | | | | | | | | al | | | | | | | | | Park | | | | | | | | | [facility] | | | | | | | | | l | | | | | | | | | Center | | | | | | | | | | | | | | | | | | | | | | | | | | | | | | | | | | | | | | | | | | | | | | | | | | | | | | | | | | | | | | | | | | | | | | | | | | | | | | | | | | | | | | | | | | | | | | | | | | | | | | | | | | | | | | | | | | | | | | | | | | | | | | | | | | | | | | | [address] | | | | | | | | | [address] | | | [address] | | | | | | | | | Hot | | | | | | | | | Spring | | | | | | | | | s, [place], | | | | | | | | | | | | | | | | | | [address]- | | | | | | | | | [address], | | | | | | | | | Ph | | | | | | | | | (501) | | | | | | | | | 321[address]10 | | | | | | | | | 00 | | | | | | | | | | | | | | | | | | | | | | | | | | | | | | | | | | | | | | | | | | | | | | | | | | | | | | | | | | | | | | | | | | | | | | | | | | | | | | | | | | | | | | | | | | | | | | | | | | | | +--------+--------+--------+--------+--------+--------+--------+--------+ | 03/15/ | urinal | | N0 | | | | | | 2021 | ysis, | | | | | | | | | comple | | | | | | | | | te | | | | | | | | | | | | | | | | | | | | | | | | | | | | | | | | | | | | | micros | | | | | Nation | | | | copic | | | | | al | | | | exam | | | | | Park | | | | needed | | | | | [facility] | | | | ? | | | | | l | | | | | | | | | Center | | | | | | | | | | | | | | | | | | | | | | | | | | | | | | | | | | | | | | | | | | | | | | | | | | | | | | | | | | | | | | | | | | | | | | | | | | | | | | | | | | | | | | | | | | | | | | | | | | | | | | | | | | | | | | | | | | | | | | | | | | | | | | | | | | | | | | | 1910 | | | | | | | | | [address] | | | | | | | | | [address], | | | | | | | | | Hot | | | | | | | | | Spring | | | | | | | | | s, [place], | | | | | | | | | | | | | | | | | | [address]- | | | | | | | | | 7752, | | | | | | | | | Ph | | | | | | | | | (501) | | | | | | | | | 321-10 | | | | | | | | | 00 | | | | | | | | | | | | | | | | | | | | | | | | | | | | | | | | | | | | | | | | | | | | | | | | | | | | | | | | | | | | | | | | | | | | | | | | | | | | | | | | | | | | | | | | | | | | | | | | | | | | +--------+--------+--------+--------+--------+--------+--------+--------+ | 03/15/ | urinal | | 12/31/ | | | | | | 2021 | ysis, | | 2021 | | | | | | | comple | | | | | | | | | te | | | | | | | | | | | | | | | | | | | | | | | | | | | | UA | | | | | | | | | strip | | | | | Nation | | | | exp | | | | | al | | | | | | | | | Park | | | | | | | | | [facility]ica | | | | | | | | | l | | | | | | | | | Center | | | | | | | | | | | | | | | | | | | | | | | | | | | | | | | | | | | | | | | | | | | | | | | | | | | | | | | | | | | | | | | | | | | | | | | | | | | | | | | | | | | | | | | | | | | | | | | | | | | | | | | | | | | | | | | | | | | | | | | | | | | | | | | | | | | | | | | [address] | | | | | | | | | [address] | | | | | | | | | Hot | | | | | | | | | Spring | | | | | | | | | s, [place], | | | | | | | | | | | | | | | | | | [address]- | | | | | | | | | 7752, | | | | | | | | | Ph | | | | | | | | | (501) | | | | | | | | | 321-10 | | | | | | | | | 00 | | | | | | | | | | | | | | | | | | | | | | | | | | | | | | | | | | | | | | | | | | | | | | | | | | | | | | | | | | | | | | | | | | | | | | | | | | | | | | | | | | | | | | | | | | | | | | | | | | | | +--------+--------+--------+--------+--------+--------+--------+--------+ | 03/15/ | urinal | | [id number] | | | | | | 2021 | ysis, | | 01 | | | | | | | comple | | | | | | | | | te | | | | | | | | | | | | | | | | | | | | | | | | | | | | UA | | | | | | | | | strip | | | | | Nation | | | | lot # | | | | | al | | | | | | | | | Park | | | | | | | | | Medica | | | | | | | | | l | | | | | | | | | Center | | | | | | | | | | | | | | | | | | | | | | | | | | | | | | | | | | | | | | | | | | | | | | | | | | | | | | | | | | | | | | | | | | | | | | | | | | | | | | | | | | | | | | | | | | | | | | | | | | | | | | | | | | | | | | | | | | | | | | | | | | | | | | | | | | | | | | | [address] | | | | | | | | | [address] | [address] | | [address] | [address], | | | | | | | | | Hot | | | | | | | | | Spring | | | | | | | | | s, [place], | | | | | | | | | | | | | | | | | | [address]- | | | | | | | | | [address]752, | | | | | | | | | Ph | | | | | | | | | (501) | | | | | | | | | 321-10 | | | | | | | | | 00 | | | | | | | | | | | | | | | | | | | | | | | | | | | | | | | | | | | | | | | | | | | | | | | | | | | | | | | | | | | | | | | | | | | | | | | | | | | | | | | | | | | | | | | | | | | | | | | | | | | | +--------+--------+--------+--------+--------+--------+--------+--------+ | 03/15/ | urinal | | clear | | clear | | | | 2021 | ysis, | | clear | | | | | | | comple | | | | | | | | | te | | | | | | | | | | | | | | | | | | | | | | | | | | | | | | | | | | | | | urine | | | | | Nation | | | | clarit | | | | | al | | | | y | | | | | Park | | | | | | | | | [facility] | | | | | | | | | l | | | | | | | | | Center | | | | | | | | | | | | | | | | | | | | | | | | | | | | | | | | | | | | | | | | | | | | | | | | | | | | | | | | | | | | | | | | | | | | | | | | | | | | | | | | | | | | | | | | | | | | | | | | | | | | | | | | | | | | | | | | | | | | | | | | | | | | | | | | | | | | | | | 1908 | | | | | | | | | [address] | | | | | | | | [address], | | | | | | | | | Hot | | | | | | | | | Spring | | | | | | | | | s, [place], | | | | | | | | | | | | | | | | | | [address]- | | | | | | | | | [address]752, | | | | | | | | | Ph | | | | | | | | | (501) | | | | | | | | | 321-10 | | | | | | | | | 00 | | | | | | | | | | | | | | | | | | | | | | | | | | | | | | | | | | | | | | | | | | | | | | | | | | | | | | | | | | | | | | | | | | | | | | | | | | | | | | | | | | | | | | | | | | | | | | | | | | | | +--------+--------+--------+--------+--------+--------+--------+--------+ | 03/15/ | urinal | | negati | | negati | | | | 2021 | ysis, | | ve | | ve | | | | | comple | | | | | | | | | te | | | | | | | | | | | | | | | | | | | | | | | | | | | | | | | | | | | | | biliru | | | | | Nation | | | | b ur | | | | | al | | | | strip- | | | | | Park | | | | mcnc | | | | | [facility] | | | | | | | | | l | | | | | | | | | Center | | | | | | | | | | | | | | | | | | | | | | | | | | | | | | | | | | | | | | | | | | | | | | | | | | | | | | | | | | | | | | | | | | | | | | | | | | | | | | | | | | | | | | | | | | | | | | | | | | | | | | | | | | | | | | | | | | | | | | | | | | | | | | | | | | | | | | | [address] | | | | | | | | | [address], | | | | | | | | | Hot | | | | | | | | | Spring | | | | | | | | | s, [place], | | | | | | | | | | | | | | | | | | [address]- | | | | | | | | | 7752, | | | | | | | | | Ph | | | | | | | | | (501) | | | | | | | | | 321-10 | | | | | | | | | 00 | | | | | | | | | | | | | | | | | | | | | | | | | | | | | | | | | | | | | | | | | | | | | | | | | | | | | | | | | | | | | | | | | | | | | | | | | | | | | | | | | | | | | | | | | | | | | | | | | | | | +--------+--------+--------+--------+--------+--------+--------+--------+ | 03/15/ | urinal | | negati | | < 1+ | | | | 2021 | ysis, | | ve | | | | | | | comple | | | | | | | | | te | | | | | | | | | | | | | | | | | | | | | | | | | | | | | | | | | | | | | blood | | | | | Nation | | | | | | | | | al | | | | | | | | | Park | | | | | | | | | [facility]ica | | | | | | | | | l | | | | | | | | | Center | | | | | | | | | | | | | | | | | | | | | | | | | | | | | | | | | | | | | | | | | | | | | | | | | | | | | | | | | | | | | | | | | | | | | | | | | | | | | | | | | | | | | | | | | | | | | | | | | | | | | | | | | | | | | | | | | | | | | | | | | | | | | | | | | | | | | | | [address] | | | | | | | | | [address], | | | | | | | | | Hot | | | | | | | | | Spring | | | | | | | | | s, [place], | | | | | | | | | | | | | | | | | | [address]- | | | | | | | | | [address]752, | | | | | | | | | Ph | | | | | | | | | (501) | | | | | | | | | 321-10 | | | | | | | | | 00 | | | | | | | | | | | | | | | | | | | | | | | | | | | | | | | | | | | | | | | | | | | | | | | | | | | | | | | | | | | | | | | | | | | | | | | | | | | | | | | | | | | | | | | | | | | | | | | | | | | | +--------+--------+--------+--------+--------+--------+--------+--------+ | 03/15/ | urinal | | yellow | | yellow | | | | 2021 | ysis, | | | | | | | | | comple | | yellow | | | | | | | te | | | | | | | | | | | | | | | | | | | | | | | | | | | | | | | | | | | | | color | | | | | Nation | | | | ur | | | | | al | | | | | | | | | Park | | | | | | | | | Medica | | | | | | | | | l | | | | | | | | | Center | | | | | | | | | | | | | | | | | | | | | | | | | | | | | | | | | | | | | | | | | | | | | | | | | | | | | | | | | | | | | | | | | | | | | | | | | | | | | | | | | | | | | | | | | | | | | | | | | | | | | | | | | | | | | | | | | | | | | | | | | | | | | | | | | | | | | | | [address] | | | | | | | | | [address], | | | | | | | | | Hot | | | | | | | | | Spring | | | | | | | | | s, [place], | | | | | | | | | | | | | | | | | | [address]- | | | | | | | | | [address]752, | | | | | | | | | Ph | | | | | | | | | (501) | | | | | | | | | 321-10 | | | | | | | | | 00 | | | | | | | | | | | | | | | | | | | | | | | | | | | | | | | | | | | | | | | | | | | | | | | | | | | | | | | | | | | | | | | | | | | | | | | | | | | | | | | | | | | | | | | | | | | | | | | | | | | | +--------+--------+--------+--------+--------+--------+--------+--------+ | 03/15/ | urinal | | negati | mg/dL | negati | | | | 2021 | ysis, | | ve | | ve | | | | | comple | | | | | | | | | te | | | | | | | | | | | | | | | | | | | | | | | | | | | | | | | | | | | | | glucos | | | | | Nation | | | | e | | | | | al | | | | | | | | | Park | | | | | | | | | Medica | | | | | | | | | l | | | | | | | | | Center | | | | | | | | | | | | | | | | | | | | | | | | | | | | | | | | | | | | | | | | | | | | | | | | | | | | | | | | | | | | | | | | | | | | | | | | | | | | | | | | | | | | | | | | | | | | | | | | | | | | | | | | | | | | | | | | | | | | | | | | | | | | | | | | | | | | | | | [address] | | | | | | | | | [address], | | | | | | | | | Hot | | | | | | | | | Spring | | | | | | | | | s, [place], | | | | | | | | | | | | | | | | | | [address]- | | | | | | | | | [address]752, | | | | | | | | | Ph | | | | | | | | | (501) | | | | | | | | | 321-10 | | | | | | | | | 00 | | | | | | | | | | | | | | | | | | | | | | | | | | | | | | | | | | | | | | | | | | | | | | | | | | | | | | | | | | | | | | | | | | | | | | | | | | | | | | | | | | | | | | | | | | | | | | | | | | | | +--------+--------+--------+--------+--------+--------+--------+--------+ | 03/15/ | urinal | | negati | mg/dL | negati | | | | 2021 | ysis, | | ve | | ve | | | | | comple | | | | | | | | | te | | | | | | | | | | | | | | | | | | | | | | | | | | | | | | | | | | | | | ketone | | | | | Nation | | | | s ur | | | | | al | | | | strip- | | | | | Park | | | | mcnc | | | | | [facility] | | | | | | | | | l | | | | | | | | | Center | | | | | | | | | | | | | | | | | | | | | | | | | | | | | | | | | | | | | | | | | | | | | | | | | | | | | | | | | | | | | | | | | | | | | | | | | | | | | | | | | | | | | | | | | | | | | | | | | | | | | | | | | | | | | | | | | | | | | | | | | | | | | | | | | | | | | | | [address] | | | | | | | | | [address] | | | [address], | | | | | | | | | Hot | | | | | | | | | Spring | | | | | | | | | s, [place], | | | | | | | | | | | | | | | | | | [address]- | | | | | | | | | [address]752, | | | | | | | | | Ph | | | | | | | | | (501) | | | | | | | | | 321-10 | | | | | | | | | 00 | | | | | | | | | | | | | | | | | | | | | | | | | | | | | | | | | | | | | | | | | | | | | | | | | | | | | | | | | | | | | | | | | | | | | | | | | | | | | | | | | | | | | | | | | | | | | | | | | | | | +--------+--------+--------+--------+--------+--------+--------+--------+ | 03/15/ | urinal | | negati | | < 1+ | | | | 2021 | ysis, | | ve | | | | | | | comple | | negati | | | | | | | te | | ve | | | | | | | | | | | | | | | | | | | | | | | | | | | | | | | | | | | leukoc | | | | | Nation | | | | yte | | | | | al | | | | estera | | | | | Park | | | | se ur | | | | | Medica | | | | dipsti | | | | | l | | | | ck | | | | | Center | | | | | | | | | | | | | | | | | | | | | | | | | | | | | | | | | | | | | | | | | | | | | | | | | | | | | | | | | | | | | | | | | | | | | | | | | | | | | | | | | | | | | | | | | | | | | | | | | | | | | | | | | | | | | | | | | | | | | | | | | | | | | | | | | | | | | | | [address] | | | | | | | | | [address], | | | | | | | | | Hot | | | | | | | | | Spring | | | | | | | | | s, [place], | | | | | | | | | | | | | | | | | | [address]- | | | | | | | | | [address]752, | | | | | | | | | Ph | | | | | | | | | (501) | | | | | | | | | 321-10 | | | | | | | | | 00 | | | | | | | | | | | | | | | | | | | | | | | | | | | | | | | | | | | | | | | | | | | | | | | | | | | | | | | | | | | | | | | | | | | | | | | | | | | | | | | | | | | | | | | | | | | | | | | | | | | | +--------+--------+--------+--------+--------+--------+--------+--------+ | 03/15/ | urinal | | negati | | negati | | | | 2021 | ysis, | | ve | | ve | | | | | comple | | negati | | | | | | | te | | ve | | | | | | | | | | | | | | | | | | | | | | | | | | | | | | | | | | | nitrit | | | | | Nation | | | | e ur | | | | | al | | | | dipsti | | | | | Park | | | | ck | | | | | Medica | | | | | | | | | l | | | | | | | | | Center | | | | | | | | | | | | | | | | | | | | | | | | | | | | | | | | | | | | | | | | | | | | | | | | | | | | | | | | | | | | | | | | | | | | | | | | | | | | | | | | | | | | | | | | | | | | | | | | | | | | | | | | | | | | | | | | | | | | | | | | | | | | | | | | | | | | | | | [address] | | | | | | | | | [address] | | | | [address], | | | | | | | | | Hot | | | | | | | | | Spring | | | | | | | | | s, [place], | | | | | | | | | | | | | | | | | | [address]- | | | | | | | | | [address]752, | | | | | | | | | Ph | | | | | | | | | (501) | | | | | | | | | 321-10 | | | | | | | | | 00 | | | | | | | | | | | | | | | | | | | | | | | | | | | | | | | | | | | | | | | | | | | | | | | | | | | | | | | | | | | | | | | | | | | | | | | | | | | | | | | | | | | | | | | | | | | | | | | | | | | | +--------+--------+--------+--------+--------+--------+--------+--------+ | 03/15/ | urinal | | 5.0 | | 5.0-8. | | | | 2021 | ysis, | | | | 0 | | | | | comple | | | | | | | | | te | | | | | | | | | | | | | | | | | | | | | | | | | | | | pH | | | | | | | | | ur | | | | | Nation | | | | | | | | | al | | | | | | | | | Park | | | | | | | | | [facility] | | | | | | | | | l | | | | | | | | | Center | | | | | | | | | | | | | | | | | | | | | | | | | | | | | | | | | | | | | | | | | | | | | | | | | | | | | | | | | | | | | | | | | | | | | | | | | | | | | | | | | | | | | | | | | | | | | | | | | | | | | | | | | | | | | | | | | | | | | | | | | | | | | | | | | | | | | | | [address] | | | | | | | | | [address], | | | | | | | | | Hot | | | | | | | | | Spring | | | | | | | | | s, [place], | | | | | | | | | | | | | | | | | | [address]- | | | | | | | | | [address]752, | | | | | | | | | Ph | | | | | | | | | (501) | | | | | | | | | 321-10 | | | | | | | | | 00 | | | | | | | | | | | | | | | | | | | | | | | | | | | | | | | | | | | | | | | | | | | | | | | | | | | | | | | | | | | | | | | | | | | | | | | | | | | | | | | | | | | | | | | | | | | | | | | | | | | | +--------+--------+--------+--------+--------+--------+--------+--------+ | 03/15/ | urinal | | negati | mg/dL | | | | | 2021 | ysis, | | ve | | | | | | | comple | | | | | | | | | te | | | | | | | | | | | | | | | | | | | | | | | | | | | | | | | | | | | | | protei | | | | | Nation | | | | n | | | | | al | | | | | | | | | Park | | | | | | | | | [facility]ica | | | | | | | | | l | | | | | | | | | Center | | | | | | | | | | | | | | | | | | | | | | | | | | | | | | | | | | | | | | | | | | | | | | | | | | | | | | | | | | | | | | | | | | | | | | | | | | | | | | | | | | | | | | | | | | | | | | | | | | | | | | | | | | | | | | | | | | | | | | | | | | | | | | | | | | | | | | | [address] | | | | | | | | | [address] | [address], | | | | | | | | | Hot | | | | | | | | | Spring | | | | | | | | | s, [place], | | | | | | | | | | | | | | | | | | [address]- | | | | | | | | | [address]752, | | | | | | | | | Ph | | | | | | | | | (501) | | | | | | | | | 321-10 | | | | | | | | | 00 | | | | | | | | | | | | | | | | | | | | | | | | | | | | | | | | | | | | | | | | | | | | | | | | | | | | | | | | | | | | | | | | | | | | | | | | | | | | | | | | | | | | | | | | | | | | | | | | | | | | +--------+--------+--------+--------+--------+--------+--------+--------+ | 03/15/ | urinal | | 1.015 | | 1.005- | | | | 2021 | ysis, | | | | 1.020 | | | | | comple | | | | | | | | | te | | | | | | | | | | | | | | | | | | | | | | | | | | | | | | | | | | | | | specif | | | | | Nation | | | | ic | | | | | al | | | | gravit | | | | | Park | | | | y ur | | | | | [facility]ica | | | | | | | | | l | | | | | | | | | Center | | | | | | | | | | | | | | | | | | | | | | | | | | | | | | | | | | | | | | | | | | | | | | | | | | | | | | | | | | | | | | | | | | | | | | | | | | | | | | | | | | | | | | | | | | | | | | | | | | | | | | | | | | | | | | | | | | | | | | | | | | | | | | | | | | | | | | | 1910 | | | | | | | | | [address] | | | | | | | | | [address], | | | | | | | | | Hot | | | | | | | | | Spring | | | | | | | | | s, [place], | | | | | | | | | | | | | | | | | | [address]- | | | | | | | | | [address]752, | | | | | | | | | Ph | | | | | | | | | (501) | | | | | | | | | 321-10 | | | | | | | | | 00 | | | | | | | | | | | | | | | | | | | | | | | | | | | | | | | | | | | | | | | | | | | | | | | | | | | | | | | | | | | | | | | | | | | | | | | | | | | | | | | | | | | | | | | | | | | | | | | | | | | | +--------+--------+--------+--------+--------+--------+--------+--------+ | 03/15/ | urinal | | 1.0 | mg/dL | < 2 | | | | 2021 | ysis, | | | | | | | | | comple | | | | | | | | | te | | | | | | | | | | | | | | | | | | | | | | | | | | | | | | | | | | | | | urobil | | | | | Nation | | | | inogen | | | | | al | | | | ur | | | | | Park | | | | strip- | | | | | [facility] | | | | mcnc | | | | | l | | | | | | | | | Center | | | | | | | | | | | | | | | | | | | | | | | | | | | | | | | | | | | | | | | | | | | | | | | | | | | | | | | | | | | | | | | | | | | | | | | | | | | | | | | | | | | | | | | | | | | | | | | | | | | | | | | | | | | | | | | | | | | | | | | | | | | | | | | | | | | | | | | 1910 | | | | | | | | | [address] | | | | | | | | | [address], | | | | | | | | | Hot | | | | | | | | | Spring | | | | | | | | | s, [place], | | | | | | | | | | | | | | | | | | [address]- | | | | | | | | | [address]752, | | | | | | | | | Ph | | | | | | | | | (501) | | | | | | | | | 321-10 | | | | | | | | | 00 | | | | | | | | | | | | | | | | | | | | | | | | | | | | | | | | | | | | | | | | | | | | | | | | | | | | | | | | | | | | | | | | | | | | | | | | | | | | | | | | | | | | | | | | | | | | | | | | | | | | +--------+--------+--------+--------+--------+--------+--------+--------+ | 03/15/ | BMP, | | 8.40 | mmol/L | 8-16 | normal | | | 2021 | serum | | | | | | | | | or | | | | | | | | | plasma | | | | | | | | | | | | | | | | | | | | | | | | | | | | | | | | | | | | | anion | | | | | Nation | | | | gap | | | | | al | | | | serpl- | | | | | Park | | | | [facility] | | | | | [facility] | | | | | | | | | l | | | | | | | | | Center | | | | | | | | | | | | | | | | | | | | | | | | | | | | | | | | | | | | | | | | | | | | | | | | | | | | | | | | | | | | | | | | | | | | | | | | | | | | | | | | | | | | | | | | | | | | | | | | | | | | | | | | | | | | | | | | | | | | | | | | | | | | | | | | | | | | | | | 1908 | | | | | | | | | [address] | | | [address] | | | | | | | | | Hot | | | | | | | | | Spring | | | | | | | | | s, [place], | | | | | | | | | | | | | | | | | | [id number]- | | | | | | | | | 7752, | | | | | | | | | Ph | | | | | | | | | (501) | | | | | | | | | 321-10 | | | | | | | | | 00 | | | | | | | | | | | | | | | | | | | | | | | | | | | | | | | | | | | | | | | | | | | | | | | | | | | | | | | | | | | | | | | | | | | | | | | | | | | | | | | | | | | | | | | | | | | | | | | | | | | | +--------+--------+--------+--------+--------+--------+--------+--------+ | 03/15/ | BMP, | | 15 | ratio | 10-20 | normal | | | 2021 | serum | | | | | | | | | or | | | | | | | | | plasma | | | | | | | | | | | | | | | | | | | | | | | | | | | | | | | | | | | | | BUN/cr | | | | | Nation | | | | e | | | | | al | | | | ratio | | | | | Park | | | | | | | | | [facility] | | | | | | | | | l | | | | | | | | | Center | | | | | | | | | | | | | | | | | | | | | | | | | | | | | | | | | | | | | | | | | | | | | | | | | | | | | | | | | | | | | | | | | | | | | | | | | | | | | | | | | | | | | | | | | | | | | | | | | | | | | | | | | | | | | | | | | | | | | | | | | | | | | | | | | | | | | | | [address] | | | | | | | | | [address] | | | | | | | | | Hot | | | | | | | | | Spring | | | | | | | | | s, [place], | | | | | | | | | | | | | | | | | | [address]- | | | | | | | | | 7752, | | | | | | | | | Ph | | | | | | | | | (501) | | | | | | | | | 321-10 | | | | | | | | | 00 | | | | | | | | | | | | | | | | | | | | | | | | | | | | | | | | | | | | | | | | | | | | | | | | | | | | | | | | | | | | | | | | | | | | | | | | | | | | | | | | | | | | | | | | | | | | | | | | | | | | +--------+--------+--------+--------+--------+--------+--------+--------+ | 03/15/ | BMP, | | 16 | mg/dL | 7-18 | normal | | | 2021 | serum | | | | | | | | | or | | | | | | | | | plasma | | | | | | | | | | | | | | | | | | | | | | | | | | | | | | | | | | | | | BUN | | | | | Nation | | | | serpl- | | | | | al | | | | [facility] | | | | | Park | | | | | | | | | [facility] | | | | | | | | | l | | | | | | | | | Center | | | | | | | | | | | | | | | | | | | | | | | | | | | | | | | | | | | | | | | | | | | | | | | | | | | | | | | | | | | | | | | | | | | | | | | | | | | | | | | | | | | | | | | | | | | | | | | | | | | | | | | | | | | | | | | | | | | | | | | | | | | | | | | | | | | | | | | [address] | | | | | | | | | [address] | | | | | | | | | Hot | | | | | | | | | Spring | | | | | | | | | s, [place], | | | | | | | | | | | | | | | | | | [address]- | | | | | | | | | [address], | | | | | | | | | Ph | | | | | | | | | (501) | | | | | | | | | 321[address]10 | | | | | | | | | 00 | | | | | | | | | | | | | | | | | | | | | | | | | | | | | | | | | | | | | | | | | | | | | | | | | | | | | | | | | | | | | | | | | | | | | | | | | | | | | | | | | | | | | | | | | | | | | | | | | | | | +--------+--------+--------+--------+--------+--------+--------+--------+ | 03/15/ | BMP, | | 8.8 | mg/dL | 8.5-10 | normal | | | 2021 | serum | | | | .1 | | | | | or | | | | | | | | | plasma | | | | | | | | | | | | | | | | | | | | | | | | | | | | | | | | | | | | | calciu | | | | | Nation | | | | m | | | | | al | | | | serpl- | | | | | Park | | | | [facility] | | | | | [facility] | | | | | | | | | l | | | | | | | | | Center | | | | | | | | | | | | | | | | | | | | | | | | | | | | | | | | | | | | | | | | | | | | | | | | | | | | | | | | | | | | | | | | | | | | | | | | | | | | | | | | | | | | | | | | | | | | | | | | | | | | | | | | | | | | | | | | | | | | | | | | | | | | | | | | | | | | | | | [address] | | | | | | | | | [address] | | | [address] | | | | | | | | | Hot | | | | | | | | | Spring | | | | | | | | | s, [place], | | | | | | | | | | | | | | | | | | [address]- | | | | | | | | | [address], | | | | | | | | | Ph | | | | | | | | | (501) | | | | | | | | | 321[address]10 | | | | | | | | | 00 | | | | | | | | | | | | | | | | | | | | | | | | | | | | | | | | | | | | | | | | | | | | | | | | | | | | | | | | | | | | | | | | | | | | | | | | | | | | | | | | | | | | | | | | | | | | | | | | | | | | +--------+--------+--------+--------+--------+--------+--------+--------+ | 03/15/ | BMP, | | 106 | mmol/L | 98-107 | normal | | | 2021 | serum | | | | | | | | | or | | | | | | | | | plasma | | | | | | | | | | | | | | | | | | | | | | | | | | | | | | | | | | | | | chlori | | | | | Nation | | | | de | | | | | al | | | | ser/pl | | | | | Park | | | | as | | | | | [facility] | | | | | | | | | l | | | | | | | | | Center | | | | | | | | | | | | | | | | | | | | | | | | | | | | | | | | | | | | | | | | | | | | | | | | | | | | | | | | | | | | | | | | | | | | | | | | | | | | | | | | | | | | | | | | | | | | | | | | | | | | | | | | | | | | | | | | | | | | | | | | | | | | | | | | | | | | | | | 1908 | | | | | | | | | [address] | | | | | | | | [address], | | | | | | | | | Hot | | | | | | | | | Spring | | | | | | | | | s, [place], | | | | | | | | | | | | | | | | | | [address]- | | | | | | | | | [address]752, | | | | | | | | | Ph | | | | | | | | | (501) | | | | | | | | | 321[address]10 | | | | | | | | | 00 | | | | | | | | | | | | | | | | | | | | | | | | | | | | | | | | | | | | | | | | | | | | | | | | | | | | | | | | | | | | | | | | | | | | | | | | | | | | | | | | | | | | | | | | | | | | | | | | | | | | +--------+--------+--------+--------+--------+--------+--------+--------+ | 03/15/ | BMP, | | 29.5 | mmol/L | 21.0-3 | normal | | | 2021 | serum | | | | 2.0 | | | | | or | | | | | | | | | plasma | | | | | | | | | | | | | | | | | | | | | | | | | | | | | | | | | | | | | CO2 | | | | | Nation | | | | serpl- | | | | | al | | | | scnc | | | | | Park | | | | | | | | | [facility] | | | | | | | | | l | | | | | | | | | Center | | | | | | | | | | | | | | | | | | | | | | | | | | | | | | | | | | | | | | | | | | | | | | | | | | | | | | | | | | | | | | | | | | | | | | | | | | | | | | | | | | | | | | | | | | | | | | | | | | | | | | | | | | | | | | | | | | | | | | | | | | | | | | | | | | | | | | | 1910 | | | | | | | | | [address] | | | | | | | | | [address], | | | | | | | | | Hot | | | | | | | | | Spring | | | | | | | | | s, [place], | | | | | | | | | | | | | | | | | | [address]- | | | | | | | | | 7752, | | | | | | | | | Ph | | | | | | | | | (501) | | | | | | | | | 321-10 | | | | | | | | | 00 | | | | | | | | | | | | | | | | | | | | | | | | | | | | | | | | | | | | | | | | | | | | | | | | | | | | | | | | | | | | | | | | | | | | | | | | | | | | | | | | | | | | | | | | | | | | | | | | | | | | +--------+--------+--------+--------+--------+--------+--------+--------+ | 03/15/ | BMP, | | 279 | mOsm/k | 275-30 | normal | | | 2021 | serum | | | g | 0 | | | | | or | | | | | | | | | plasma | | | | | | | | | | | | | | | | | | | | | | | | | | | | | | | | | | | | | osmola | | | | | Nation | | | | lity | | | | | al | | | | serpl | | | | | Park | | | | calc | | | | | Medica | | | | | | | | | l | | | | | | | | | Center | | | | | | | | | | | | | | | | | | | | | | | | | | | | | | | | | | | | | | | | | | | | | | | | | | | | | | | | | | | | | | | | | | | | | | | | | | | | | | | | | | | | | | | | | | | | | | | | | | | | | | | | | | | | | | | | | | | | | | | | | | | | | | | | | | | | | | | 1910 | | | | | | | | | [address] | | | | | | | | | [address], | | | | | | | | | Hot | | | | | | | | | Spring | | | | | | | | | s, [place], | | | | | | | | | | | | | | | | | | [address]- | | | | | | | | | 7752, | | | | | | | | | Ph | | | | | | | | | (501) | | | | | | | | | 321-10 | | | | | | | | | 00 | | | | | | | | | | | | | | | | | | | | | | | | | | | | | | | | | | | | | | | | | | | | | | | | | | | | | | | | | | | | | | | | | | | | | | | | | | | | | | | | | | | | | | | | | | | | | | | | | | | | +--------+--------+--------+--------+--------+--------+--------+--------+ | 03/15/ | BMP, | | 1.1 | mg/dL | 0.6-1. | normal | | | 2021 | serum | | | | 3 | | | | | or | | | | | | | | | plasma | | | | | | | | | | | | | | | | | | | | | | | | | | | | | | | | | | | | | creat | | | | | Nation | | | | serpl- | | | | | al | | | | [facility] | | | | | Park | | | | | | | | | [facility] | | | | | | | | | l | | | | | | | | | Center | | | | | | | | | | | | | | | | | | | | | | | | | | | | | | | | | | | | | | | | | | | | | | | | | | | | | | | | | | | | | | | | | | | | | | | | | | | | | | | | | | | | | | | | | | | | | | | | | | | | | | | | | | | | | | | | | | | | | | | | | | | | | | | | | | | | | | | 1908 | | | | | | | | | [address] | | | | | | | | | [address], | | | | | | | | | Hot | | | | | | | | | Spring | | | | | | | | | s, [place], | | | | | | | | | | | | | | | | | | [address]- | | | | | | | | | 7752, | | | | | | | | | Ph | | | | | | | | | (501) | | | | | | | | | 321-10 | | | | | | | | | 00 | | | | | | | | | | | | | | | | | | | | | | | | | | | | | | | | | | | | | | | | | | | | | | | | | | | | | | | | | | | | | | | | | | | | | | | | | | | | | | | | | | | | | | | | | | | | | | | | | | | | +--------+--------+--------+--------+--------+--------+--------+--------+ | 03/15/ | BMP, | | 86 | mL/min | 90-120 | low | | | 2021 | serum | | | | | | | | | or | | | | | | | | | plasma | | | | | | | | | | | | | | | | | | | | | | | | | | | | | | | | | | | | | eGFR | | | | | Nation | | | | nicholas | | | | | al | | | | n | | | | | Park | | | | americ | | | | | Medica | | | | an | | | | | l | | | | | | | | | Center | | | | | | | | | | | | | | | | | | | | | | | | | | | | | | | | | | | | | | | | | | | | | | | | | | | | | | | | | | | | | | | | | | | | | | | | | | | | | | | | | | | | | | | | | | | | | | | | | | | | | | | | | | | | | | | | | | | | | | | | | | | | | | | | | | | | | | | 1908 | | | | | | | | | [address] | | | | | | | | | [address], | | | | | | | | | Hot | | | | | | | | | Spring | | | | | | | | | s, [place], | | | | | | | | | | | | | | | | | | [address]- | | | | | | | | | 7752, | | | | | | | | | Ph | | | | | | | | | (501) | | | | | | | | | 321-10 | | | | | | | | | 00 | | | | | | | | | | | | | | | | | | | | | | | | | | | | | | | | | | | | | | | | | | | | | | | | | | | | | | | | | | | | | | | | | | | | | | | | | | | | | | | | | | | | | | | | | | | | | | | | | | | | +--------+--------+--------+--------+--------+--------+--------+--------+ | 03/15/ | BMP, | | 71 | mL/min | 90-120 | low | | | 2021 | serum | | | | | | | | | or | | | | | | | | | plasma | | | | | | | | | | | | | | | | | | | | | | | | | | | | | | | | | | | | | eGFR | | | | | Nation | | | | non-af | | | | | al | | | | rican | | | | | Park | | | | americ | | | | | Medica | | | | an | | | | | l | | | | | | | | | Center | | | | | | | | | | | | | | | | | | | | | | | | | | | | | | | | | | | | | | | | | | | | | | | | | | | | | | | | | | | | | | | | | | | | | | | | | | | | | | | | | | | | | | | | | | | | | | | | | | | | | | | | | | | | | | | | | | | | | | | | | | | | | | | | | | | | | | | 1908 | | | | | | | | | [address] | | | | | | | | | [address], | | | | | | | | | Hot | | | | | | | | | Spring | | | | | | | | | s, [place], | | | | | | | | | | | | | | | | | | [address]- | | | | | | | | | 7752, | | | | | | | | | Ph | | | | | | | | | (501) | | | | | | | | | 321-10 | | | | | | | | | 00 | | | | | | | | | | | | | | | | | | | | | | | | | | | | | | | | | | | | | | | | | | | | | | | | | | | | | | | | | | | | | | | | | | | | | | | | | | | | | | | | | | | | | | | | | | | | | | | | | | | | +--------+--------+--------+--------+--------+--------+--------+--------+ | 03/15/ | BMP, | | 92 | mg/dL | 74-106 | normal | | | 2021 | serum | | | | | | | | | or | | | | | | | | | plasma | | | | | | | | | | | | | | | | | | | | | | | | | | | | | | | | | | | | | glucos | | | | | Nation | | | | e | | | | | al | | | | serpl- | | | | | Park | | | | [facility]cnc | | | | | [facility] | | | | | | | | | l | | | | | | | | | Center | | | | | | | | | | | | | | | | | | | | | | | | | | | | | | | | | | | | | | | | | | | | | | | | | | | | | | | | | | | | | | | | | | | | | | | | | | | | | | | | | | | | | | | | | | | | | | | | | | | | | | | | | | | | | | | | | | | | | | | | | | | | | | | | | | | | | | | 1908 | | | | | | | | | [address] | | | | | | | | | [address], | | | | | | | | | Hot | | | | | | | | | Spring | | | | | | | | | s, [place], | | | | | | | | | | | | | | | | | | [address]- | | | | | | | | | 7752, | | | | | | | | | Ph | | | | | | | | | (501) | | | | | | | | | 321-10 | | | | | | | | | 00 | | | | | | | | | | | | | | | | | | | | | | | | | | | | | | | | | | | | | | | | | | | | | | | | | | | | | | | | | | | | | | | | | | | | | | | | | | | | | | | | | | | | | | | | | | | | | | | | | | | | +--------+--------+--------+--------+--------+--------+--------+--------+ | 03/15/ | BMP, | | 3.9 | mmol/L | 3.5-5. | normal | | | 2021 | serum | | | | 1 | | | | | or | | | | | | | | | plasma | | | | | | | | | | | | | | | | | | | | | | | | | | | | | | | | | | | | | potass | | | | | Nation | | | | ium | | | | | al | | | | ser/pl | | | | | Park | | | | as | | | | | Medica | | | | | | | | | l | | | | | | | | | Center | | | | | | | | | | | | | | | | | | | | | | | | | | | | | | | | | | | | | | | | | | | | | | | | | | | | | | | | | | | | | | | | | | | | | | | | | | | | | | | | | | | | | | | | | | | | | | | | | | | | | | | | | | | | | | | | | | | | | | | | | | | | | | | | | | | | | | | 1908 | | | | | | | | | [address] | | | | | | | | | [address], | | | | | | | | | Hot | | | | | | | | | Spring | | | | | | | | | s, [place], | | | | | | | | | | | | | | | | | | [address]- | | | | | | | | | 7752, | | | | | | | | | Ph | | | | | | | | | (501) | | | | | | | | | 321-10 | | | | | | | | | 00 | | | | | | | | | | | | | | | | | | | | | | | | | | | | | | | | | | | | | | | | | | | | | | | | | | | | | | | | | | | | | | | | | | | | | | | | | | | | | | | | | | | | | | | | | | | | | | | | | | | | +--------+--------+--------+--------+--------+--------+--------+--------+ | 03/15/ | BMP, | | 140 | mmol/L | 136-14 | normal | | | 2021 | serum | | | | 5 | | | | | or | | | | | | | | | plasma | | | | | | | | | | | | | | | | | | | | | | | | | | | | | | | | | | | | | sodium | | | | | Nation | | | | | | | | | al | | | | serpl- | | | | | Park | | | | scnc | | | | | [facility]ica | | | | | | | | | l | | | | | | | | | Center | | | | | | | | | | | | | | | | | | | | | | | | | | | | | | | | | | | | | | | | | | | | | | | | | | | | | | | | | | | | | | | | | | | | | | | | | | | | | | | | | | | | | | | | | | | | | | | | | | | | | | | | | | | | | | | | | | | | | | | | | | | | | | | | | | | | | | | [address] | | | | | | | | | [address] | | | [address], | | | | | | | | | Hot | | | | | | | | | Spring | | | | | | | | | s, [place], | | | | | | | | | | | | | | | | | | [address]- | | | | | | | | | 7752, | | | | | | | | | Ph | | | | | | | | | (501) | | | | | | | | | 321-10 | | | | | | | | | 00 | | | | | | | | | | | | | | | | | | | | | | | | | | | | | | | | | | | | | | | | | | | | | | | | | | | | | | | | | | | | | | | | | | | | | | | | | | | | | | | | | | | | | | | | | | | | | | | | | | | | +--------+--------+--------+--------+--------+--------+--------+--------+ | 03/15/ | rapid | | 08/20/ | | | | | | 2021 | SARS | | 2021 | | | | | | | CoV 2 | | | | | | | | | Ag, QL | | | | | | | | | [place], | | | | | | | | | respir | | | | | | | | | atory | | | | | | | | | specim | sars | | | | | Nation | | | en | antige | | | | | al | | | | n kit | | | | | Park | | | | exp | | | | | Medica | | | | | | | | | l | | | | | | | | | Center | | | | | | | | | | | | | | | | | | | | | | | | | | | | | | | | | | | | | | | | | | | | | | | | | | | | | | | | | | | | | | | | | | | | | | | | | | | | | | | | | | | | | | | | | | | | | | | | | | | | | | | | | | | | | | | | | | | | | | | | | | | | | | | | | | | | | | | 1910 | | | | | | | | | [address] | | | | | | | | [address], | | | | | | | | | Hot | | | | | | | | | Spring | | | | | | | | | s, [place], | | | | | | | | | | | | | | | | | | [address]- | | | | | | | | | 7752, | | | | | | | | | Ph | | | | | | | | | (501) | | | | | | | | | 321-10 | | | | | | | | | 00 | | | | | | | | | | | | | | | | | | | | | | | | | | | | | | | | | | | | | | | | | | | | | | | | | | | | | | | | | | | | | | | | | | | | | | | | | | | | | | | | | | | | | | | | | | | | | | | | | | | | +--------+--------+--------+--------+--------+--------+--------+--------+ | 03/15/ | rapid | | 536019 | | | | | | 2021 | SARS | | | | | | | | | CoV 2 | | | | | | | | | Ag, QL | | | | | | | | | [place], | | | | | | | | | respir | | | | | | | | | atory | | | | | | | | | specim | sars | | | | | Nation | | | en | antige | | | | | al | | | | n kit | | | | | Park | | | | lot # | | | | | Medica | | | | | | | | | l | | | | | | | | | Center | | | | | | | | | | | | | | | | | | | | | | | | | | | | | | | | | | | | | | | | | | | | | | | | | | | | | | | | | | | | | | | | | | | | | | | | | | | | | | | | | | | | | | | | | | | | | | | | | | | | | | | | | | | | | | | | | | | | | | | | | | | | | | | | | | | | | | | 1910 | | | | | | | | | [address] | | | | | | | | | [address], | | | | | | | | | Hot | | | | | | | | | Spring | | | | | | | | | s, [place], | | | | | | | | | | | | | | | | | | [address]- | | | | | | | | | 7752, | | | | | | | | | Ph | | | | | | | | | (501) | | | | | | | | | 321-10 | | | | | | | | | 00 | | | | | | | | | | | | | | | | | | | | | | | | | | | | | | | | | | | | | | | | | | | | | | | | | | | | | | | | | | | | | | | | | | | | | | | | | | | | | | | | | | | | | | | | | | | | | | | | | | | | +--------+--------+--------+--------+--------+--------+--------+--------+ | 03/15/ | rapid | | negati | | negati | | | | 2021 | SARS | | ve- | | ve | | | | | CoV 2 | | sars-c | | | | | | | Ag, QL | | ov-2 | | | | | | | [place], | | negati | | | | | | | respir | | ve- | | | | | | | atory | | sars-c | | | | | | | specim | sars-c | ov-2 | | | | Nation | | | en | ov+mike | | | | | al | | | | s-cov- | | | | | Park | | | | 2 | | | | | Medica | | | | (covid | | | | | l | | | | -19) | | | | | Center | | | | Ag | | | | | | | | | [prese | | | | | | | | | nce] | | | | | | | | | in | | | | | | | | | respir | | | | | | | | | atory | | | | | | | | | specim | | | | | | | | | enby R | | | | | | | | | | | | | | | | | | | | | | | | | | | | | | | | | | | | | | | | | | | | | | | | | | | | | | | | | | | | | | | | | | | | 1908 | | | | | | | | | [address] | | | | | | | | | [address], | | | | | | | | | Hot | | | | | | | | | Spring | | | | | | | | | s, [place], | | | | | | | | | | | | | | | | | | [address]- | | | | | | | | | 7752, | | | | | | | | | Ph | | | | | | | | | (501) | | | | | | | | | 321-10 | | | | | | | | | 00 | | | | | | | | | | | | | | | | | | | | | | | | | | | | | | | | | | | | | | | | | | | | | | | | | | | | | | | | | | | | | | | | | | | | | | | | | | | | | | | | | | | | | | | | | | | | | | | | | | | | +--------+--------+--------+--------+--------+--------+--------+--------+ | 03/15/ | PT/INR | | 1.08 | | 0.85-1 | normal | | | 2021 | | | | | .17 | | | | | | | | | | | | | | | | | | | | | | | | | | | | | | | | | | | | | | | | | | | | | | | | | | | INR in | | | | | Nation | | | | | | | | | al | | | | platel | | | | | Park | | | | et | | | | | Medica | | | | poor | | | | | l | | | | plasma | | | | | Center | | | | by | | | | | | | | | coagul | | | | | | | | | ation | | | | | | | | | assay | | | | | | | | | | | | | | | | | | | | | | | | | | | | | | | | | | | | | | | | | | | | | | | | | | | | | | | | | | | | | | | | | | | | | | | | | | | | | | | | | | | | | | | | | | | | | | | | | | | | | | | | 1910 | | | | | | | | | [address] | | | | | | | | [address], | | | | | | | | | Hot | | | | | | | | | Spring | | | | | | | | | s, [place], | | | | | | | | | | | | | | | | | | [address]- | | | | | | | | | 7752, | | | | | | | | | Ph | | | | | | | | | (501) | | | | | | | | | 321-10 | | | | | | | | | 00 | | | | | | | | | | | | | | | | | | | | | | | | | | | | | | | | | | | | | | | | | | | | | | | | | | | | | | | | | | | | | | | | | | | | | | | | | | | | | | | | | | | | | | | | | | | | | | | | | | | | +--------+--------+--------+--------+--------+--------+--------+--------+ | 03/15/ | PT/INR | | 13.0 | second | 11.6-1 | normal | | | 2021 | | | | s | 5.0 | | | | | | | | | | | | | | | | | | | | | | | | | | | | | | | | | | | | | | | | | | | | | | | | | | | prothr | | | | | Nation | | | | ombin | | | | | al | | | | time | | | | | Park | | | | (PT) | | | | | Medica | | | | in | | | | | l | | | | platel | | | | | Center | | | | et | | | | | | | | | poor | | | | | | | | | plasma | | | | | | | | | by | | | | | | | | | coagul | | | | | | | | | ation | | | | | | | | | assay | | | | | | | | | | | | | | | | | | | | | | | | | | | | | | | | | | | | | | | | | | | | | | | | | | | | | | | | | | | | | | | | | | | | | | | | | | | | | 1910 | | | | | | | | | [address] | | | | | | | | [address], | | | | | | | | | Hot | | | | | | | | | Spring | | | | | | | | | s, [place], | | | | | | | | | | | | | | | | | | [address]- | | | | | | | | | 7752, | | | | | | | | | Ph | | | | | | | | | (501) | | | | | | | | | 321-10 | | | | | | | | | 00 | | | | | | | | | | | | | | | | | | | | | | | | | | | | | | | | | | | | | | | | | | | | | | | | | | | | | | | | | | | | | | | | | | | | | | | | | | | | | | | | | | | | | | | | | | | | | | | | | | | | +--------+--------+--------+--------+--------+--------+--------+--------+ | 03/15/ | activa | | 36.4 | second | 22.8-3 | normal | | | 2021 | ish | | | s | 9.4 | | | | | partia | | | | | | | | | l | | | | | | | | | thromb | | | | | | | | | oplast | | | | | | | | | in | | | | | | | | | time, | activa | | | | | Nation | | | coagul | ish | | | | | al | | | ation | partia | | | | | Park | | | assay, | l | | | | | Medica | | | blood | thromb | | | | | l | | | | oplast | | | | | Center | | | | in | | | | | | | | | time | | | | | | | | | (APTT) | | | | | | | | | in | | | | | | | | | platel | | | | | | | | | et | | | | | | | | | poor | | | | | | | | | plasma | | | | | | | | | by | | | | | | | | | | | | | | | | | | | | | | | | | | | | | | | | | | | | | | | | | | | | | | | | | | | | | | | | | | | 1910 | | | | | | | | | [address] | | | | | | | | [address], | | | | | | | | | Hot | | | | | | | | | Spring | | | | | | | | | s, [place], | | | | | | | | | | | | | | | | | | [address]- | | | | | | | | | 7752, | | | | | | | | | Ph | | | | | | | | | (501) | | | | | | | | | 321-10 | | | | | | | | | 00 | | | | | | | | | | | | | | | | | | | | | | | | | | | | | | | | | | | | | | | | | | | | | | | | | | | | | | | | | | | | | | | | | | | | | | | | | | | | | | | | | | | | | | | | | | | | | | | | | | | | +--------+--------+--------+--------+--------+--------+--------+--------+ | 03/02/ | methic | | mnosa | | | | | | 2021 | illin | | | | | | | | | resist | | | | | | | | | ant | | | | | | | | | staphy | | | | | | | | | lococc | | | | | | | | | us | | | | | | | | | aureus | cultur | | | | | Nation | | | , | e, | | | | | al | | | cultur | MRSA | | | | | Park | | | e, | screen | | | | | [facility] | | | nasal | | | | | | l | | | | (swab) | | | | | Center | | | | | | | | | | | | | | | | | | | | | | | | | | | | | | | | | | | | | | | | | | | | | | | | | | | | | | | | | | | | | | | | | | | | | | | | | | | | | | | | | | | | | | | | | | | | | | | | | | | | | | | | | | | | | | | | | | | | | | | | | | | | | | | | | | | | | | | 1910 | | | | | | | | | [address] | | | | | | | | | [address], | | | | | | | | | Hot | | | | | | | | | Spring | | | | | | | | | s, [place], | | | | | | | | | | | | | | | | | | [address]- | | | | | | | | | 7752, | | | | | | | | | Ph | | | | | | | | | (501) | | | | | | | | | 321-10 | | | | | | | | | 00 | | | | | | | | | | | | | | | | | | | | | | | | | | | | | | | | | | | | | | | | | | | | | | | | | | | | | | | | | | | | | | | | | | | | | | | | | | | | | | | | | | | | | | | | | | | | | | | | | | | | +--------+--------+--------+--------+--------+--------+--------+--------+ | | - xr | | | | | | | | | left | | | | | | | | | hip 1 | | | | | | | | | view | | | | | | | | | | | | | | | | | | | | | | | | | | | | | | | | | | | | | | No | | | | Nation | | | | | observ | | | | al | | | | | ation | | | | Park | | | | | record | | | | [facility] | | | | | ed. | | | | l | | | | | | | | | Center | | | | | | | | | | | | | | | | | | (Imagi | | | | | | | | | ng) | | | | | | | | | | | | | | | | | | | | | | | | | | | | | | | | | | | | | | | | | | | | | | | | | | | | | | | | | | | | | | | | | | | | | | | | | | | | | | | | | | | | | | | | | | | | | | | | | | | | | | | | | | | | | | | | | | | | | | | | | | | | | | | | | | | | | | | 1910 | | | | | | | | | [address] | | | | | | | | [address] | | | | | | | | | Hot | | | | | | | | | Spring | | | | | | | | | s | | | | | | | | | Nation | | | | | | | | | al | | | | | | | | | Park, | | | | | | | | | [place], | | | | | | | | | [id number], | | | | | | | | | Ph | | | | | | | | | (501) | | | | | | | | | [address] | | | | | | | | | [address] | | | | | | | | | | | | | | | | | | | | | | | | | | | | | | | | | | | | | | | | | | | | | | | | | | | | | | | | | | | | | | | | | | | | | | | | | | | | | | | | | | | | | | | | | | | | | | | | | | | | +--------+--------+--------+--------+--------+--------+--------+--------+ | | XR, | | | | | | | | | hip, | | | | | | | | | unilat | | | | | | | | | eral | | | | | | | | | | | | | | | | | | | | | | | | | | | | | | | | | | | | | | No | | | | Orthop | | | | | observ | | | | aedic | | | | | ation | | | | Center | | | | | record | | | | Of | | | | | ed. | | | | Hot | | | | | | | | | Spring | | | | | | | | | s | | | | | | | | | | | | | | | | | | | | | | | | | | | | | | | | | | | | | | | | | | | | | | | | | | | | | | | | | | | | | | | | | | | | | | | | | | | | | | | | | | | | | | | | | | | | | | | | | | | | | | | | | | | | | | | | | | | | | | | | | | | | | | 1898 | | | | | | | | | [address] | | | | | | | | | [address] | | | | | | | | | [address], | | | | | | | | | Hot | | | | | | | | | Spring | | | | | | | | | s, [place], | | | | | | | | | | | | | | | | | | [id number]- | | | | | | | | | [id number], | | | | | | | | | Ph | | | | | | | | | (501) | | | | | | | | | [address] | | | | | | | | | 55 | | | | | | | | | | | | | | | | | | | | | | | | | | | | | | | | | | | | | | | | | | | | | | | | | | | | | | | | | | | | | | | | | | | | | | | | | | | | | | | | | | | | | | | | | | | | | | | | | | | | +--------+--------+--------+--------+--------+--------+--------+--------+ | | - xr | | | | | | | | | left | | | | | | | | | hip 1 | | | | | | | | | view | | | | | | | | | | | | | | | | | | | | | | | | | | | | | | | | | | | | | | No | | | | Nation | | | | | observ | | | | al | | | | | ation | | | | Park | | | | | record | | | | Medica | | | | | ed. | | | | l | | | | | | | | | Center | | | | | | | | | | | | | | | | | | (Imagi | | | | | | | | | ng) | | | | | | | | | | | | | | | | | | | | | | | | | | | | | | | | | | | | | | | | | | | | | | | | | | | | | | | | | | | | | | | | | | | | | | | | | | | | | | | | | | | | | | | | | | | | | | | | | | | | | | | | | | | | | | | | | | | | | | | | | | | | | | | | | | | | | | | 1908 | | | | | | | | | [address] | | | | | | | | | [address], | | | | | | | | | Hot | | | | | | | | | Spring | | | | | | | | | s | | | | | | | | | Nation | | | | | | | | | al | | | | | | | | | Park, | | | | | | | | | [place], | | | | | | | | | [address], | | | | | | | | | Ph | | | | | | | | | (501) | | | | | | | | | [address] | | | | | | | | | [address] | | | | | | | | | | | | | | | | | | | | | | | | | | | | | | | | | | | | | | | | | | | | | | | | | | | | | | | | | | | | | | | | | | | | | | | | | | | | | | | | | | | | | | | | | | | | | | | | | | | | +--------+--------+--------+--------+--------+--------+--------+--------+ | | imagin | | | | | | | | | g/diag | | | | | | | | | nostic | | | | | | | | | | | | | | | | | | result | | | | | | | | | | | | | | | | | | | | | | | | | | | | | No | | | | Nation | | | | | observ | | | | al | | | | | ation | | | | Park | | | | | record | | | | Medica | | | | | ed. | | | | l | | | | | | | | | Center | | | | | | | | | | | | | | | | | | (Imagi | | | | | | | | | ng) | | | | | | | | | | | | | | | | | | | | | | | | | | | | | | | | | | | | | | | | | | | | | | | | | | | | | | | | | | | | | | | | | | | | | | | | | | | | | | | | | | | | | | | | | | | | | | | | | | | | | | | | | | | | | | | | | | | | | | | | | | | | | | | | | | | | | | | 1908 | | | | | | | | | [address] | | | | | | | | | [address] | | | | | | | | | Hot | | | | | | | | | Spring | | | | | | | | | s | | | | | | | | | Nation | | | | | | | | | al | | | | | | | | | Park, | | | | | | | | | [place], | | | | | | | | | [id number], | | | | | | | | | Ph | | | | | | | | | (501) | | | | | | | | | [address] | | | | | | | | | [address] | | | | | | | | | | | | | | | | | | | | | | | | | | | | | | | | | | | | | | | | | | | | | | | | | | | | | | | | | | | | | | | | | | | | | | | | | | | | | | | | | | | | | | | | | | | | | | | | | | | | +--------+--------+--------+--------+--------+--------+--------+--------+ Problems +---------+---------+---------+---------+---------+---------+---------+ | Name | Status | Last | Onset | Resolut | Lateral | Problem | | | | Modifie | Date | ion | ity | Type | | | | d Date | | Date | | | | | | | | | | | | | | | | | | | | | | | | | | | | | | | | | | | | | | | | | | | +---------+---------+---------+---------+---------+---------+---------+ | Alcohol | Active | | | | | | | ism | | 021 | | | | | | | | | | | | | | | | | | | | | | | | | | | | | | | | | | | | | | | | | | | | | +---------+---------+---------+---------+---------+---------+---------+ | Duodeni | Active | | | | | | | tis | | 021 | | | | | | | | | | | | | | | | | | | | | | | | | | | | | | | | | | | | | | | | | | | | | +---------+---------+---------+---------+---------+---------+---------+ | Acute | Active | | | | | | | pancrea | | 021 | | | | | | titis | | | | | | | | | | | | | | | | | | | | | | | | | | | | | | | | | | | | | | | | | | | | | | | +---------+---------+---------+---------+---------+---------+---------+ | Celluli | Active | | | | | | | tis of | | 021 | | | | | | toe | | | | | | | | | | | | | | | | | | | | | | | | | | | | | | | | | | | | | | | | | | | | | | | +---------+---------+---------+---------+---------+---------+---------+ | Hip | Active | | | | LEFT | | | pain | | 020 | 020 | | | | | | | | | | | | | | | | | | | | | | | | | | | | | | | | | | | | | | | | | | | | +---------+---------+---------+---------+---------+---------+---------+ | Musculo | Active | | | | | | | skeleta | | 021 | | | | | | l pain | | | | | | | | | | | | | | | | | | | | | | | | | | | | | | | | | | | | | | | | | | | | | | | +---------+---------+---------+---------+---------+---------+---------+ | Avascul | Active | | | | | | | ar | | 021 | | | | | | necrosi | | | | | | | | s of | | | | | | | | bone of | | | | | | | | hip | | | | | | | | | | | | | | | | | | | | | | | | | | | | | | | | | | | | | | | | | | | | | | | +---------+---------+---------+---------+---------+---------+---------+ | Nausea | Active | | | | | | | | | 021 | | | | | | | | | | | | | | | | | | | | | | | | | | | | | | | | | | | | | | | | | | | | | +---------+---------+---------+---------+---------+---------+---------+ | Vomitin | Active | | | | | | | g | | 021 | | | | | | | | | | | | | | | | | | | | | | | | | | | | | | | | | | | | | | | | | | | | | +---------+---------+---------+---------+---------+---------+---------+ | Diarrhe | Active | | | | | | | a | | 021 | | | | | | | | | | | | | | | | | | | | | | | | | | | | | | | | | | | | | | | | | | | | | +---------+---------+---------+---------+---------+---------+---------+ | Abdomin | Active | | | | | | | al pain | | 021 | | | | | | | | | | | | | | | | | | | | | | | | | | | | | | | | | | | | | | | | | | | | | | | | | | | | | +---------+---------+---------+---------+---------+---------+---------+ | Closed | Active | | | | RIGHT | ACUTE | | fractur | | 020 | 020 | | | | | e of | | | | | | | | phalanx | | | | | | | | of | | | | | | | | foot | | | | | | | | | | | | | | | | | | | | | | | | | | | | | | | | | | | | | | | | | | | | | | | +---------+---------+---------+---------+---------+---------+---------+ | Fractur | Active | | | | | | | e of | | 021 | | | | | | phalanx | | | | | | | | of | | | | | | | | foot | | | | | | | | | | | | | | | | | | | | | | | | | | | | | | | | | | | | | | | | | | | | | | | +---------+---------+---------+---------+---------+---------+---------+ | Injury | Active | | | | | | | of | | 021 | | | | | | right | | | | | | | | foot | | | | | | | | | | | | | | | | | | | | | | | | | | | | | | | | | | | | | | | | | | | | | | | +---------+---------+---------+---------+---------+---------+---------+ Procedures Surgical History + + + + + | Date | Name | Laterality | Status | | | | | | | | | | | | | | | | + + + + + | | | | active | | | | | | | | | | | | | Appendectomy | | | | | | | | | | | | | | | | | | | | | | | | | | | | + + + + + | | | | active | | | | | | | | | | | | | cervical | | | | | arthrodesis | | | | | | | | | | | | | | | | | | | | | | | | | | | | + + + + + Imaging Results None recorded. Medical Equipment None Reported. Allergies + + + + + + + | Name | Reaction | Severity | Status | Onset | Category | | | | | | | | | | | | | | | | | | | | | | | | | | | | | + + + + + + + | | | | | | | | | | | | | | | | | | | | | | | | | | | | | | | | | | | | tetracycl | | | active | | Medicatio | | ine | | | | 1 | n Allergy | | | | | | | | | | | | | | | | | | | | | | | | | | | | | | | | | | | | | | | | | | | | | | | | | | | | | | | | | + + + + + + + Medications + + + + + + + | Name | Sig | Start | Stop Date | Status | Note | | | | Date | | | | | | | | | | | | | | | | | | | | | | | | | | | | | | | | + + + + + + + | | | | | active | | | | | | | | | | | | | | | | | | | | | | | | | 1 | | | | | | | [drp] by | | | | | | | ophthalmi | | | | | | latanopro | c route. | | | | | | st 0.005 | | | | | | | % eye | | | | | | | drops | | | | | | | | | | | | | | | | | | | | | | | | | | | | | | | | | | | | | | | | | | | | | | | | | | | | | | | | | | | | | | | | | | | | | | | | | | | | + + + + + + + | | | | | active | | | | | | | | | | | | | | | | | | | | | | | | | TK 1 | | | | | | | T PO QD | | | | | | | | | | | | | atorvasta | | | | | | | tin 40 mg | | | | | | | tablet | | | | | | | | | | | | | | | | | | | | | | | | | | | | | | | | | | | | | | | | | | | | | | | | | | | | | | | | | | | | | | | | | | | | | | | | | | | | + + + + + + + | | | | | active | | | | | | | | | | | | | | | | | | | | | | | | | 20 | | | | | | | mg by | | | | | | | oral | | | | | | atorvasta | route. | | | | | | tin 20 mg | | | | | | | tablet | | | | | | | | | | | | | | | | | | | | | | | | | | | | | | | | | | | | | | | | | | | | | | | | | | | | | | | | | | | | | | | | | | | | | | | | | | | | + + + + + + + | | | | | completed | | | | | | | | | | | | | | | | | | | | 1 | | | | | 2500 | | | | | | | ugs by | | | | | | | sublingua | | | | | | cyanocoba | l route. | | | | | | sandra | | | | | | | (vit | | | | | | | B-12) | | | | | | | 2,500 mcg | | | | | | | | | | | | | | sublingua | | | | | | | l tablet | | | | | | | | | | | | | | | | | | | | | | | | | | | | | | | | | | | | | | | | | | | | | | | | | | | | | | | | | | | | | | | | | | | | | | | | | | | | + + + + + + + | | | | | completed | | | | | | | | | | | | | | | | | | | 0 | 1 | | | | | 300 | | | | | | | mg by | | | | | | | oral | | | | | | clindamyc | route. | | | | | | in HCl | | | | | | | 300 mg | | | | | | | capsule | | | | | | | | | | | | | | | | | | | | | | | | | | | | | | | | | | | | | | | | | | | | | | | | | | | | | | | | | | | | | | | | | | | | | | | | | | | | + + + + + + + | | | | | active | | | | | | | | | | | | // | | | | | | | 1 | | | | | | 17 g | | | | | | | by oral | | | | | | | route. | | | | | | polyethyl | | | | | | | abraham | | | | | | | glycol | | | | | | | [id number] 17 | | | | | | | gram oral | | | | | | | powder | | | | | | | packet | | | | | | | | | | | | | | | | | | | | | | | | | | | | | | | | | | | | | | | | | | | | | | | | | | | | | | | | | | | | | | | | | | | | | | | | | | | | + + + + + + + | | | | | active | | | | | | | | | | | | // | | | | | | | 1 | | | | | | TAKE | | | | | | | 1 TABLET | | | | | | | BY MOUTH | | | | | | hydrocodo | EVERY 6 | | | | | | ne 5 | HOURS | | | | | | mg-acetam | NEEDED | | | | | | inophen | | | | | | | 325 mg | | | | | | | tablet | | | | | | | | | | | | | | | | | | | | | | | | | | | | | | | | | | | | | | | | | | | | | | | | | | | | | | | | | | | | | | | | | | | | | | | | | | | | + + + + + + + | | | | | active | | | | | | | | | | | | | | | | | | | | | | | | | 4 mg | | | | | | | by oral | | | | | | | route. | | | | | | ondansetr | | | | | | | on HCl 4 | | | | | | | mg tablet | | | | | | | | | | | | | | | | | | | | | | | | | | | | | | | | | | | | | | | | | | | | | | | | | | | | | | | | | | | | | | | | | | | | | | | | | | | | + + + + + + + | | | | | active | | | | | | | | | | | | | | | | | | | | | | | | | 40 | | | | | | | mg by | | | | | | | oral | | | | | | famotidin | route. | | | | | | e 40 mg | | | | | | | tablet | | | | | | | | | | | | | | | | | | | | | | | | | | | | | | | | | | | | | | | | | | | | | | | | | | | | | | | | | | | | | | | | | | | | | | | | | | | | + + + + + + + | | | | | active | | | | | | | | | | | | 02/24/202 | | | | | | | 1 | | | | | | 1 g | | | | | | | by oral | | | | | | | route. | | | | | | metronida | | | | | | | zole 500 | | | | | | | mg tablet | | | | | | | | | | | | | | | | | | | | | | | | | | | | | | | | | | | | | | | | | | | | | | | | | | | | | | | | | | | | | | | | | | | | | | | | | | | | + + + + + + + | | | | | active | | | | | | | | | | | | | | | | | | | | | | | | | 5 mg | | | | | | | by oral | | | | | | | route. | | | | | | amlodipin | | | | | | | e 5 mg | | | | | | | tablet | | | | | | | | | | | | | | | | | | | | | | | | | | | | | | | | | | | | | | | | | | | | | | | | | | | | | | | | | | | | | | | | | | | | | | | | | | | | + + + + + + + | | | | | completed | | | | | | | | | | | | | | | | | | | 1 | 1 | | | | | 500 | | | | | | | mg by | | | | | | | oral | | | | | | ciproflox | route. | | | | | | acin 500 | | | | | | | mg tablet | | | | | | | | | | | | | | | | | | | | | | | | | | | | | | | | | | | | | | | | | | | | | | | | | | | | | | | | | | | | | | | | | | | | | | | | | | | | + + + + + + + | | | | | active | | | | | | | | | | | | | | | | | | | | | | | | | TAKE | | | | | | | 1 TABLET | | | | | | | BY MOUTH | | | | | | hydrocodo | EVERY 6 | | | | | | ne 10 | HOURS | | | | | | mg-acetam | NEEDED | | | | | | inophen | FOR HIP | | | | | | 325 mg | PAIN | | | | | | tablet | | | | | | | | | | | | | | | | | | | | | | | | | | | | | | | | | | | | | | | | | | | | | | | | | | | | | | | | | | | | | | | | | | | | | | | | | | | | + + + + + + + | | | | | active | | | | | | | | | | | | | | | | | | | | | | | | | TAKE | | | | | | | 2 | | | | | | | CAPSULES | | | | | | chlordiaz | BY MOUTH | | | | | | epoxide | THREE | | | | | | 25 mg | TIMES | | | | | | capsule | DAILY FOR | | | | | | | 3 DAYS | | | | | | | THEN 1 | | | | | | | CAPSULE | | | | | | | THREE | | | | | | | TIMES | | | | | | | DAILY FOR | | | | | | | 3 DAYS. | | | | | | | | | | | | | | | | | | | | | | | | | | | | | | | | | | | | | | | | | | | | | | | | | | | | | | | | | | | | | + + + + + + + | | | | | active | | | | | | | | | | | | | | | | | | | | | | | | | 300 | | | | | | | mg by | | | | | | | oral | | | | | | gabapenti | route. | | | | | | n 300 mg | | | | | | | capsule | | | | | | | | | | | | | | | | | | | | | | | | | | | | | | | | | | | | | | | | | | | | | | | | | | | | | | | | | | | | | | | | | | | | | | | | | | | | + + + + + + + | | | | | active | | | | | | | | | | | | | | | | | | | | | | | | | 81 | | | | | | | mg by | | | | | | | oral | | | | | | aspirin | route. | | | | | | 81 mg | | | | | | | chewable | | | | | | | tablet | | | | | | | | | | | | | | | | | | | | | | | | | | | | | | | | | | | | | | | | | | | | | | | | | | | | | | | | | | | | | | | | | | | | | | | | | | | | + + + + + + + | | | | | completed | | | | | | | | | | | | | 01/05/202 | | | | | | | 1 | | | | | 5 mg | | | | | | | by oral | | | | | | | route. | | | | | | lisinopri | | | | | | | l 5 mg | | | | | | | tablet | | | | | | | | | | | | | | | | | | | | | | | | | | | | | | | | | | | | | | | | | | | | | | | | | | | | | | | | | | | | | | | | | | | | | | | | | | | | + + + + + + + | | | | | completed | | | | | | | | | | | | | | | | | | | 0 | 1 | | | | | | | | | | | | | | | | | | | | | | | | | mupirocin | | | | | | | 2 % | | | | | | | topical | | | | | | | ointment | | | | | | | | | | | | | | | | | | | | | | | | | | | | | | | | | | | | | | | | | | | | | | | | | | | | | | | | | | | | | | | | | | | | | | | | | | | | + + + + + + + | | | | | completed | | | | | | | | | | | | | | | | | | | | 1 | | | | | 200 | | | | | | | mg by | | | | | | | oral | | | | | | gabapenti | route. | | | | | | n 100 mg | | | | | | | capsule | | | | | | | | | | | | | | | | | | | | | | | | | | | | | | | | | | | | | | | | | | | | | | | | | | | | | | | | | | | | | | | | | | | | | | | | | | | | + + + + + + + | | | | | active | | | | | | | | | | | | 02/24/202 | | | | | | | 1 | | | | | | 750 | | | | | | | mg by | | | | | | | oral | | | | | | levofloxa | route. | | | | | | casandra 750 | | | | | | | mg tablet | | | | | | | | | | | | | | | | | | | | | | | | | | | | | | | | | | | | | | | | | | | | | | | | | | | | | | | | | | | | | | | | | | | | | | | | | | | | + + + + + + + | | | | | active | | | | | | | | | | | | | | | | | | | | | | | | | | | | | | | | | | | | | | | | | | | | | ondansetr | | | | | | | on 4 mg | | | | | | | disintegr | | | | | | | ating | | | | | | | tablet | | | | | | | | | | | | | | | | | | | | | | | | | | | | | | | | | | | | | | | | | | | | | | | | | | | | | | | | | | | | | | | | | | | | | | | | | | | | + + + + + + + | | | | | active | | | | | | | | | | | | | | | | | | | | | | | | | 100 | | | | | | | mg by | | | | | | | oral | | | | | | losartan | route. | | | | | | 100 mg | | | | | | | tablet | | | | | | | | | | | | | | | | | | | | | | | | | | | | | | | | | | | | | | | | | | | | | | | | | | | | | | | | | | | | | | | | | | | | | | | | | | | | + + + + + + + | | | | | completed | | | | | | | | | | | | 08/24/ | //202 | | | | | | 0 | 1 | | | | | 500 | | | | | | | mg by | | | | | | | oral | | | | | | naproxen | route. | | | | | | 500 mg | | | | | | | tablet | | | | | | | | | | | | | | | | | | | | | | | | | | | | | | | | | | | | | | | | | | | | | | | | | | | | | | | | | | | | | | | | | | | | | | | | | | | | + + + + + + + | | | | | active | | | | | | | | | | | | | | | | | | | | | | | | | | | | | | | | | | | | | | | | | | | | | cholecalc | | | | | | | iferol | | | | | | | (vitamin | | | | | | | D3) 25 | | | | | | | mcg | | | | | | | (1,000 | | | | | | | unit) | | | | | | | capsule | | | | | | | | | | | | | | | | | | | | | | | | | | | | | | | | | | | | | | | | | | | | | | | | | | | | | | | | | | | | | | | | | | | | | | | | | | | | + + + + + + + | | | | | completed | | | | | | | | | | | | | | | | | | | | 0 | | | | | TK 1 | | | | | | | C PO QID | | | | | | | | | | | | | pregabali | | | | | | | n 150 mg | | | | | | | capsule | | | | | | | | | | | | | | | | | | | | | | | | | | | | | | | | | | | | | | | | | | | | | | | | | | | | | | | | | | | | | | | | | | | | | | | | | | | | + + + + + + + | | | | | completed | | | | | | | | | | | | | | | | | | | | 1 | | | | | 200 | | | | | | | mg by | | | | | | | oral | | | | | | pregabali | route. | | | | | | n 200 mg | | | | | | | capsule | | | | | | | | | | | | | | | | | | | | | | | | | | | | | | | | | | | | | | | | | | | | | | | | | | | | | | | | | | | | | | | | | | | | | | | | | | | | + + + + + + + | | | | | active | | | | | | | | | | | | | | | | | | | | | | | | | TAKE | | | | | | | 1 TABLET | | | | | | | BY MOUTH | | | | | | tramadol | DAILY. | | | | | | ER 300 mg | | | | | | | | | | | | | | tablet,ex | | | | | | | tended | | | | | | | release | | | | | | | 24 hr | | | | | | | | | | | | | | | | | | | | | | | | | | | | | | | | | | | | | | | | | | | | | | | | | | | | | | | | | | | | | | | | | | | | | | | | | | | | + + + + + + + | | | | | completed | | | | | | | | | | | | | 02/21/202 | | | | | | | 1 | | | | | 300 | | | | | | | mg by | | | | | | | oral | | | | | | tramadol | route. | | | | | | ER 100 mg | | | | | | | capsule | | | | | | | 24h,exten | | | | | | | ded | | | | | | | release(2 | | | | | | | 5-75) | | | | | | | | | | | | | | | | | | | | | | | | | | | | | | | | | | | | | | | | | | | | | | | | | | | | | | | | | | | | | | | | | | | | | | | | | | | | + + + + + + + | | | | | active | | | | | | | | | | | | | | | | | | | | | | | | | 10 | | | | | | | mg by | | | | | | | oral | | | | | | melatonin | route. | | | | | | 10 mg | | | | | | | tablet | | | | | | | | | | | | | | | | | | | | | | | | | | | | | | | | | | | | | | | | | | | | | | | | | | | | | | | | | | | | | | | | | | | | | | | | | | | | + + + + + + + | | | | | completed | | | | | | | | | | | | | 12/02/202 | | | | | | | 0 | | | | | ADM | | | | | | | 0.7ML IM | | | | | | | UTD | | | | | | Fluzone | | | | | | | High-Dose | | | | | | | Quad | | | | | | | 2020-21 | | | | | | | (PF) 240 | | | | | | | mcg/0.7 | | | | | | | mL IM | | | | | | | syringe | | | | | | | | | | | | | | | | | | | | | | | | | | | | | | | | | | | | | | | | | | | | | | | | | | | | | | | | | | | | | | | | | | | | | | | | | | | | + + + + + + + History of Present Illness None recorded. Physical Exam + + + | | | | | | | | | | | | + + + | | None recorded. | | Notes: | | | | | | | | + + + Review of Systems None recorded. Vitals None Recorded Social History + + + | | Former Smoker (Formerly) | | Smoking Status | | | | | | | | + + + | Sex | Male | | | | + + + Functional Status + + + | | Yes | | Able to Care for Self | | | | | | | | + + + Mental Status None recorded. Family History + + + + + + + | Relations | Descripti | Onset Age | of | Resolved | Notes | | hip | on | | this Age | Age | | | | | | | | | | | | | | | | | | | | | | | | | | | | | | + + + + + + + | Mother | Malignant | | | | | | | tumor of | | | | | | | lung | | | | | | | | | | | | | | | | | | | | | | | | | | | | | | | | | + + + + + + + | Father | Malignant | | | | | | | tumor of | | | | | | | colon | | | | | | | | | | | | | | | | | | | | | | | | | | | | | | | | | + + + + + + + Medical History + + + | Condition | Response | | | | + + + | Seizures/Epilepsy | N | | | | + + + | Migraines | N | | | | + + + | Multiple Sclerosis | N | | | | + + + | Bleeding Disorder | N | | | | + + + | Substance Abuse | N | | | | + + + | MRSA - Chronic Infection | N | | | | + + + | HIV or AIDS | N | | | | + + + | Hernia | N | | | | + + + | Gastric Reflux | N | | | | + + + | Urinary Tract Infection | N | | | | + + + | Tuberculosis | N | | | | + + + | Anxiety Disorder | N | | | | + + + | Leg cramps | Y | | | | + + + | Back Pain | N | | | | + + + | Asthma | N | | | | + + + | Circulation Problems | N | | | | + + + | Leg pain | N | | | | + + + | Stroke | N | | | | + + + | Diabetes | N | | | | + + + | RSV | N | | | | + + + | Insomnia | Y | | | | + + + | Swelling of Ankles, Feet or Hands | N | | | | | | | + + + | Peptic Ulcer (stomach or duodenal) | N | | | | | | | + + + | Cancer | N | | | | + + + | Pulmonary Embolism | N | | | | + + + | Headache | N | | | | + + + | Sore muscles / joints | N | | | | + + + | Coronary Artery Disease | N | | | | + + + | Thyroid Problems | N | | | | + + + | Heart Murmur | N | | | | + + + | Good Pastures | N | | | | + + + | Heart Attack ([place]) | N | | | | + + + | Difficulty Walking | N | | | | + + + | Hepatitis | Y | | | | + + + | Heart Disease | N | | | | + + + | Muscle Pain | N | | | | + + + | GERD | N | | | | + + + | Complication To Anesthesia | N | | | | + + + | Lung Disease | N | | | | + + + | Mental Disorders | N | | | | + + + | Hip pain when walking | N | | | | + + + | Depression | N | | | | + + + | Shoulder Pain | N | | | | + + + | Warfarin Management | N | | | | + + + | Rheumatic Fever | N | | | | + + + | High Blood Pressure | Y | | | | + + + | Dialysis | N | | | | + + + | Fibromyalgia | N | | | | + + + | 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 | | | | + + + | Arm Pain | N | | | | + + + | Sleep Apnea (CPAP/BPAP/O2) | N | | | | + + + | Chest Pain | N | | | | + + + | STOMACH OR GI ULCERS | N | | | | + + + | Kidney Failure | N | | | | + + + | Emphysema | N | | | | + + + | Addiction | N | | | | + + + | Hypertension | N | | | | + + + | COPD | N | | | | + + + | Kidney Disease | N | | | | + + + | Upper Back Pain | N | | | | + + + | Blood Clots | N | | | | + + + | High Cholesterol | N | | | | + + + | Leg or Foot Ulcers | N | | | | + + + | Osteoporosis | N | | | | + + + | Heart Rhythm Disorder | N | | | | + + + | Hiatal Hernia | N | | | | + + + | Arthritis | Y | | | | + + + | Liver Disease | N | | | | + + + | Gout | Y | | | | + + + | Peripheral Vascular Disease (PVD) | N | | | | | | | + + + | Joint Pain or Swelling | Y | | | | + + + | Heart Problems | N | | | | + + + | Sexually Transmitted Disease | N | | | | + + + | Pacemaker | N | | | | + + + | Blood Transfusions | N | | | | + + + | Heartburn | N | | | | + + + | Muscular Dystrophy | N | | | | + + + Immunizations None recorded. Past Encounters + + + + | Encounter Date | Diagnosis Name | Diagnosis SNOMED-CT | | | | Code | | | | | + + + + | | Hip pain | [id number] | | | | | | 12/11/2020 | | | | | | | | | | | | | | | | | | | | | | | | [place] - | | | | [facility] | | | | [facility] | | | | Center of [facility] | | | | [place]: [address] | | | | [place] [facility] | | | | [facility] | | | | [place] [phone], | | | | Ph. | | | | | | | | | | | | | | | | | | | | | | | + + + + | | Avascular necrosis of | [id number] | | | the head of femur | | | | | | | | | | + + + + | | Avascular necrosis of | [id number] | | | the head of femur | | | 12/05/2020 | | | | | | | | | | | | | | | | | | | | | | | | BELK[place] Gallardo | | | | - [facility] | | | | Kristi, P[facility]Or[facility]opaedic | | | | Center of [facility] | | | | [place]: [address] | | | | [facility] | | | | [facility] | | | | [place] [phone], | | | | Ph. | | | | | | | | | | | | | | | | | | | | | | | + + + + Goals Section + + + + + + + | Goal | Descripti | Status | Start | Updated | Updated | | | on | | Date | by | on | | | | | | | | | | | | | | | | | | | | | | | | | | | | | + + + + + + + + + | None Recorded | + + Health Concerns Section + + | Related Observation | + + | None Recorded | + + + + + + + | Concern | Status | Updated by | Updated on | | | | | | | | | | | | | | | | + + + + + | None Recorded | | | | | | | | | | | | | | | | | | | + + + + +"
--- NOTE | 2020-12-20 14:11 | NUR ---
DISCHARGED TO HOME AMBULATORY PER CAB. DISCHARGE INSTRUCTIONS GIVEN BOTH VERBALLY AND WRITTEN. ALL QUESTIONS ANSWERED. PATIENT VERBALIZED UNDERSTANDING OF SAME. DRESSING CHANGED TO LEFT GROIN PER ORDERS. INCISION IS CLEAN DRY AND WELL APPROXIMATED. SL TO RIGHT WRIST D/C WITH CATHETER INTACT. ALL BELONGINGS WITH PATIENT. NEEDED PRESCRIPTIONS GIVEN TO PATIENT.
--- NOTE | 2020-12-21 08:30 | MORECARE ---
CASE MANAGEMENT DISCHARGE SUMMARY PATIENT: HARISH CABRERA UNIT: [id number] ADM DATE: 12/19/20 AGE: 70 : 54 SEX: M ROOM/BED: D.1209 AUTHOR: AMRIT,DOC PHYSICIAN: REFERRING PHYSICIAN: GLENDA RAI DO DATE OF SERVICE: 12/21/20 Case Management Discharge Planning Summary COMMENTS ENTERED DATE: 12/20/20 12:20 CT COMMENT TYPE: Discharge Planning REVIEWER: Shara Nunes CM met with patient at bedside after obtaining verbal consent. CM discussed availability / needs of home health, REHAB and medical equipment. Patient would like care 4 for PT. He also needs a bedside commode. I have faxed to [facility] for them to deliver to his home. ROBERT signed and copy on chart. CM to follow and assist as needed. DCP REVIEW SUMMARY ANTICIPATED D/C DATE: EXPECTED LOS : CASE STATUS: DCP Initiated INITIAL REVIEW: 12/19/2020 INITIAL REVIEWER: Shara Nunes FINAL DISCHARGE DISPOSITION: : FINAL REVIEWER: FINAL REVIEW DATE: DCP Focus Questions & Answers - Added on: QUESTION: ANSWER : PROVIDER NETWORKING REVIEW DATE: 12/20/2020 SERVICE TYPE: Home Health Care REVIEWER: Shara Nunes REVIEW DATE: 12/20/2020 SERVICE TYPE: Durable Medical Equipment REVIEWER: Shara Nunes PROVIDER: FINAL PROVIDER? : FINAL DATE/TIME: CT PATIENT: HARISH CABRERA ENCOUNTER: [id number] MEDICAL RECORD#: [id number] ADMISSION DATE: 12/19/2020 DISCHARGE DATE: 12/20/2020 ATTENDING MD: GLENDA GEORGE : AGE: 70 MARITAL STATUS: M DC PLAN ID: [id number] FACILITY: [facility] PRINTED ON: 12/21/20 8:30 CT All edits/amendments must be made on the electronic document DICTATION DATE: 12/21/20829 PRODUCT COMMUNICATIONS MANAGER: AYDEN 12/21/20829 RPT#: [id number] DC DATE:12/20/20 STATUS: DIS IN [facility] [address] [place] [address] END OF REPORT
--- NOTE | 2020-12-21 09:14 | MORECARE ---
CASE MANAGEMENT DISCHARGE SUMMARY PATIENT: HARISH CABRERA UNIT: [id number] ADM DATE: 12/19/20 AGE: 70 : 54 SEX: M ROOM/BED: D.1209 AUTHOR: AMRIT,DOC PHYSICIAN: REFERRING PHYSICIAN: GLENDA RAI DO DATE OF SERVICE: 12/21/20 Case Management Discharge Planning Summary COMMENTS ENTERED DATE: 12/20/20 12:20 CT COMMENT TYPE: Discharge Planning REVIEWER: Shara Nunes CM met with patient at bedside after obtaining verbal consent. CM discussed availability / needs of home health, REHAB and medical equipment. Patient would like care 4 for PT. He also needs a bedside commode. I have faxed to [place] for them to deliver to his home. ROBERT signed and copy on chart. CM to follow and assist as needed. DCP REVIEW SUMMARY ANTICIPATED D/C DATE: EXPECTED LOS : CASE STATUS: DCP Initiated INITIAL REVIEW: 12/19/2020 INITIAL REVIEWER: Shara Nunes FINAL DISCHARGE DISPOSITION: : FINAL REVIEWER: FINAL REVIEW DATE: DCP Focus Questions & Answers - Added on: QUESTION: ANSWER : PROVIDER NETWORKING REVIEW DATE: 12/20/2020 SERVICE TYPE: Home Health Care REVIEWER: Shara Nunes REVIEW DATE: 12/20/2020 SERVICE TYPE: Durable Medical Equipment REVIEWER: Shara Nunes PROVIDER: FINAL PROVIDER? : FINAL DATE/TIME: CT PATIENT: HARISH CABRERA ENCOUNTER: [id number] MEDICAL RECORD#: [id number] ADMISSION DATE: 12/19/2020 DISCHARGE DATE: 12/20/2020 ATTENDING MD: GLENDA GEORGE : AGE: 70 MARITAL STATUS: M DC PLAN ID: [id number] FACILITY: [facility] PRINTED ON: 12/21/20 9:14 CT All edits/amendments must be made on the electronic document DICTATION DATE: 12/21/20913 COMPENSATION AND BENEFITS ANALYST: AYDEN 12/21/20913 RPT#: [id number] DC DATE:12/20/20 STATUS: DIS IN [facility] [address] [place] [address] END OF REPORT
== END 2020-12-20 14:21 | disposition home health service (06) | DRG 470 ==
LOC: D.OPS 06:10 → D.M3 09:15 → D.OPS 09:15 → D.M3 12-19 11:47 → D.OPS 12-19 11:47 → D.M3 12-20 14:21 → D.OPS 01-08 09:30
PROVIDERS: Emergency Medicine; ADMIT Orthopaedic Surgery; ATTEND Orthopaedic Surgery
PROC: 0SRB0JZ Replacement of Left Hip Joint with Synthetic Substitute, Open Approach (ICD-10-PCS; principal; 2020-12-18 08:00)
DX: M87.852 Other osteonecrosis, left femur (principal); D62 Acute posthemorrhagic anemia; I10 Essential (primary) hypertension; K21.9 Gastro-esophageal reflux disease without esophagitis; M79.7 Fibromyalgia; K75.9 Inflammatory liver disease, unspecified; F32.9 Major depressive disorder, single episode, unspecified; F41.9 Anxiety disorder, unspecified; H40.9 Unspecified glaucoma; G62.9 Polyneuropathy, unspecified

== ENCOUNTER 2020-12-30 10:33 | Emergency (ER) | payer MEDICARE, OTHER ==
[~2020-12-30] VITALS: Ht 162.6 cm; Wt 63.6 kg
[~2020-12-30 10:33] MED LIST changes: +ELIQUIS2.5 MG PO; +PERCOCET 10-321 EAC1 PO
[2020-12-30 10:37] VITALS: BP 118/82; Ht 162.6 cm; Wt 63.6 kg
== END 2020-12-30 11:40 | disposition home or self-care (01) ==
LOC: D.ER 10:33
DX: T84.84XA Pain due to internal orthopedic prosthetic devices, implants and grafts, initial encounter (principal); G89.18 Other acute postprocedural pain; I10 Essential (primary) hypertension; K21.9 Gastro-esophageal reflux disease without esophagitis; G57.92 Unspecified mononeuropathy of left lower limb

== ENCOUNTER 2021-01-28 15:58 | Inpatient (IN) | payer MEDICARE, OTHER ==
[~2021-01-28] VITALS: Ht 165.1 cm; Wt 61.2 kg
[2021-01-28 16:38] LABS: BASOPHILS 0.2 % (0-2); EOSINOPHILS 1.5 % (0-7); HEMATOCRIT 39.8 % (42.0-54.0); IMMATURE GRANULOCYTES 0.3 % (0-5); LYMPHOCYTE ABS# 1.75 10x3/uL (1.32-3.57); MCH 29.3 pg (26.0-34.0); MCHC 32.7 g/dL (31.0-37.0); MCV 89.6 fL (80.0-100.0); MEAN PLATELET VOLUME 10.5 fL (7.4-10.4); MONOCYTES 7.2 % (2-11); NEUTROPHIL ABS# 15.85 10x3/uL (1.78-5.38); NEUTROPHILS 81.8 % (40-80); RBC 4.44 10x6/uL (4.20-6.10); RDW 12.9 % (11.5-14.5); WBC 19.4 10x3/uL (4.8-10.8)
--- NOTE | 2021-01-28 16:43 | NUR ---
PT CLOTHING REMOVED ET PT PLACED IN GOWN. TOLERATED WELL.
[2021-01-28 16:49] LABS: PLATELET COUNT 423 10x3/uL (130-400)
--- NOTE | 2021-01-28 17:05 | NUR ---
C SPINE AND C COLLAR CLEARED/TREMOVED PER MONA FOUNTAIN
--- NOTE | 2021-01-28 17:09 | NUR ---
PT CONT TO C/O 07/14 LEFT HIP PAIN. MONA FOUNTAIN NOTIFIED
[2021-01-28 17:10] VITALS: BP 144/95
[2021-01-28 17:11] LABS: INR 1.1 (0.85-1.17); PROTIME 13.1 SECONDS (11.6-15.0)
[2021-01-28 17:16] LABS: ANION GAP 13.7 mmol/L (8-16); CREATININE - SERUM 1.1 mg/dL (0.6-1.3); POTASSIUM - SERUM 3.7 mmol/L (3.5-5.1)
[2021-01-28 17:18] VITALS: BP 150/91
[2021-01-28 17:28] LABS: ALBUMIN 3.8 g/dL (3.4-5.0); BILIRUBIN - TOTAL 0.79 mg/dL (0.2-1.3); PROTEIN - SERUM 7.2 g/dL (6.4-8.2)
[2021-01-28 17:54] VITALS: BP 127/83
--- NOTE | 2021-01-28 17:54 | NUR ---
DR RAI AT . INFORMED OF CONTINUED PAIN
--- NOTE | 2021-01-28 19:17 | NUR ---
BS REPORT TO MELISSA CABRERA. KENJI JORGENSEN AT
[2021-01-28 20:30] VITALS: BP 127/99
--- NOTE | 2021-01-28 22:25 | NUR ---
CHG BATH DONE. PT PAIN BETTER CONTROLED WITH DILAUDID NOW. UNABLE TO TURN OFF BACK DUE TO PAIN. PLACED ON TELE MONITOR. IVF STARTED. CONSENTS ON CHART. ALLERGY BAND ON. PT EDUCATED ON EACH ITEM. QUESTIONS ANSWERED AND VERBALIZED UNDERSTANDING. WILL CONT TO MONITOR.
[2021-01-28 23:08] VITALS: BP 127/99; Ht 165.1 cm; Wt 61.2 kg
[2021-01-28 23:55] VITALS: BP 138/89
[2021-01-29] VITALS (9 sets, daily range): BP systolic 90–136; BP diastolic 46–89
--- NOTE | 2021-01-29 01:10 | NUR ---
PT VOIDED. UA ORDERED IN ER COLLECTED AND TAKEN TO THE LAB
[2021-01-29 01:35] LABS: BILIRUBIN NEGATIVE (NEGATIVE); KETONE MODERATE mg/dL (NEGATIVE); NITRITE NEGATIVE (NEGATIVE); UROBILINOGEN NORMAL mg/dL (< 2)
[2021-01-29 01:37] LABS: BACTERIA FEW HPF (NONE SEEN); SQUAMOUS EPITHELIAL 0-5 HPF (0-4); WHITE CELLS - URINE 0-5 HPF (0-1)
--- NOTE | 2021-01-29 07:44 | NUR ---
PT IN ALOT OF PAIN. SHIVERING UPON ENTERING ROOM. STATES PAIN IS "OFF THE CHARTS." VS STABLE. PT STATES HE WAS HERE BEFORE AND RECIEVED GREAT CARE. PT LAYING ON HIS CLOTHS AND WILL NEED TO REMOVE THOSE. STATES THE MUSCLE SPASMS ARE WHAT IS HORRIBLE. CL IN REACH. WCTM
--- NOTE | 2021-01-29 07:55 | NUR ---
SPOKE WITH Galina WOLF APN WITH [facility] TO GET SOMETHING FOR PT SPASMS. STATED THEY HAVE TRIED ALL OF THAT IN THE ER AND HE JUST NEEDS TO GO TO THE OR AND HAVE IT FIXED.
--- NOTE | 2021-01-29 08:22 | NUR ---
PT ASSISTED ON TO FRACTURE PAIN BECAUSE HE BELIEVES HE IS GOING TO HAVE A BOWEL MOVEMENT. OLD LINENS AND HIS PERSONAL CLOTHS THAT WERE CUT OFF WERE REMOVED. PT WAS ABLE TO LIFT UP. CL IN REACH. WILL NOTIFY ME WHEN DONE.
[2021-01-29 09:21] LABS: BASOPHILS 0.2 % (0-2); EOSINOPHILS 1.6 % (0-7); HEMOGLOBIN 11.5 g/dL (13.5-17.5); IMMATURE GRANULOCYTES 0.4 % (0-5); LYMPHOCYTE ABS# 2.41 10x3/uL (1.32-3.57); MCHC 32.9 g/dL (31.0-37.0); MCV 88.4 fL (80.0-100.0); MEAN PLATELET VOLUME 10.6 fL (7.4-10.4); MONOCYTES 15.4 % (2-11); NEUTROPHIL ABS# 11.78 10x3/uL (1.78-5.38); NEUTROPHILS 68.4 % (40-80); PLATELET COUNT 415 10x3/uL (130-400); RBC 3.96 10x6/uL (4.20-6.10); RDW 12.8 % (11.5-14.5); WBC 17.2 10x3/uL (4.8-10.8)
[2021-01-29] MEDS ORDERED: CALCIUM 600 +1 EAC3 PO (09:30)
[2021-01-29 09:33] LABS: ANION GAP 12.6 mmol/L (8-16); CALCIUM 9.2 mg/dL (8.5-10.1); CARBON DIOXIDE 26.9 mmol/L (21.0-32.0); CREATININE - SERUM 1.1 mg/dL (0.6-1.3); MAGNESIUM - SERUM 1.6 mg/dL (1.8-2.4); PHOSPHOROUS 3.9 mg/dL (2.5-4.9); POTASSIUM - SERUM 3.5 mmol/L (3.5-5.1)
[2021-01-29 10:07] LABS: APTT 29.7 SECONDS (22.8-39.4); INR 1.07 (0.85-1.17); PROTIME 12.9 SECONDS (11.6-15.0)
[2021-01-29 11:06] LABS: CKMB 0.8 U/L (0.0-3.6); CREATINE KINASE 203 UL (21-232)
[2021-01-29 11:07] LABS: TROPONIN-I < 0.017 ng/mL (0.000-0.060)
[2021-01-29] MEDS ORDERED: TRAMADOL HCL E100 M1 PO (12:40)
[2021-01-29] MEDS ORDERED: REMERON15 MG PO (12:40)
--- NOTE | 2021-01-29 19:50 | NUR ---
RECEIVED PT FROM PACU, VSS, PT LAYING IN BED EYES CLOSED WITH EVEN RESPIRATIONS. PIV TO LEFT AC PATENT AND INFUSING, NO REDNESS OR SWELLING. DENIES NEEDS OR PAIN AT THIS TIME. BED LOW, ALARM ON, CL IN REACH.
[2021-01-29 21:53] LABS: CKMB 1.9 U/L (0.0-3.6)
[2021-01-29 21:58] LABS: CREATINE KINASE 506 UL (21-232); TROPONIN-I < 0.017 ng/mL (0.000-0.060)
[2021-01-30] VITALS: BP 123/80
[2021-01-30 04:00] VITALS: BP 131/78
[2021-01-30 05:43] LABS: BASOPHILS 0.1 % (0-2); EOSINOPHILS 0 % (0-7); HEMATOCRIT 30.6 % (42.0-54.0); HEMOGLOBIN 10.3 g/dL (13.5-17.5); IMMATURE GRANULOCYTES 0.2 % (0-5); LYMPHOCYTE ABS# 1.64 10x3/uL (1.32-3.57); LYMPHOCYTES 10.4 % (15-50); MCH 29.1 pg (26.0-34.0); MCHC 33.7 g/dL (31.0-37.0); MEAN PLATELET VOLUME 10.7 fL (7.4-10.4); MONOCYTES 9.9 % (2-11); NEUTROPHIL ABS# 12.56 10x3/uL (1.78-5.38); NEUTROPHILS 79.4 % (40-80); RBC 3.54 10x6/uL (4.20-6.10); RDW 13.6 % (11.5-14.5); WBC 15.8 10x3/uL (4.8-10.8)
[2021-01-30 05:47] LABS: ANION GAP 11.7 mmol/L (8-16); CARBON DIOXIDE 25.1 mmol/L (21.0-32.0); CREATININE - SERUM 1.1 mg/dL (0.6-1.3); MAGNESIUM - SERUM 1.6 mg/dL (1.8-2.4); POTASSIUM - SERUM 3.8 mmol/L (3.5-5.1)
[2021-01-30 05:49] LABS: PHOSPHOROUS 2.5 mg/dL (2.5-4.9)
[2021-01-30 05:50] LABS: MCV 86.4 fL (80.0-100.0); PLATELET COUNT 295 10x3/uL (130-400)
--- NOTE | 2021-01-30 08:09 | OP ---
PATIENT NAME: HARISH CABRERA MEDICAL RECORD: [id number] :54 LOCATION:D.M3 D.1208 ADMISSION DATE:01/28/21 SURGEON: ANTWAN RAI DO DATE OF OPERATION: 01/29/2021 PROCEDURE PERFORMED: Revision left total hip arthroplasty. PREOPERATIVE DIAGNOSIS: Left periprosthetic femur fracture. POSTOPERATIVE DIAGNOSIS: Left periprosthetic femur fracture. INDICATIONS: Mr. Cabrera is a 70-year-old male who said he fell off a ladder a couple of weeks ago. Over the last week, he had pain in his hip. He had x-rays taken, but he said nothing was fractured. He said he just got up to walk yesterday and felt a pop and could not bear weight on his left leg and he was brought to the ER and seemed to have a left periprosthetic femur fracture around the stem. His total hip was done looks like about 40 days ago. His left total hip was done for avascular necrosis. He had a fall also in the hospital while he was here, but no fractures were seen. Then, he had done well on postoperative course. He said in fact he was doing very well until he fell off the ladder last week. He said then he continued to have pain. I informed him that we needed to do a revision hip with a longer stem down and cable the femur. He will be at high risk for infection, re-fracture, bleeding, need for blood products, continued pain, loss of motion, leg length discrepancy, failure of implants, blood clots and even and chronic limp and he signed the consent. SURGEON: Antwan Rai DO. DESCRIPTION OF PROCEDURE: The patient was taken to the operative suite, laid in supine position, given a block by anesthesia in preoperative area, given 2 grams of Ancef, sedated and intubated. He was given a gram of TXA as well. He was then moved to the [place] table. We then positioned him on the [place] table and prepped and draped his left hip. Timeout was performed. Everyone was in agreement of the correct side, site, patient and procedure. We began by making an incision over the prior incision made with careful dissection down to the fracture site. He did bleed, that is quite a few bleeders. I coagulated with Aquamantys, but he did bleed significantly. I then cleaned out the fracture site, pulled out the stem as it came right out. I then reduced the fracture of the femur and put 3 cables around it and then reamed up to 14. I then broached and put a 14 Des 1 piece x 210 down that fit very well. I then reduced a standard neck and it was short. We then dislocated that and popped off the head and neck and put one with a +6; +6 was then reduced and has equal lengths to the right side and then irrigated with 10% povidine-iodine and 500 mL of normal saline solution, irrigated out with over a liter of normal saline. I then used a broad band tape, sutured down the greater trochanters that are broken off from the fall to the stem, holding it in place nicely. I then put in Giovanni and vancomycin and tobramycin powder and then closed the fascia with #1 Vicryl in a [id number]-[id number], then in running stitch. I then closed the skin with 2-0 Vicryl in inverted interrupted fashion and Prineo glue was placed on the skin and then dressed with Telfa and Tegaderm. He was then awakened and taken to recovery in stable condition. BLOOD LOSS: Approximately 2 liters. COMPLICATIONS: None. OPERATIVE REPORT [id number] HARISH CABRERA TRANSINT:[id number] Voice Confirmation ID: [id number] DOCUMENT ID: [id number] ANTWAN RAI DO at 0809 CC: [id number] DICTATION DATE: 01/29/211837 HEAD STRENGTH AND CONDITIONING COACH: 01/30/21 0048 ADM IN [place] [id number] [place] [address]
[2021-01-30 09:40] VITALS: BP 105/62
--- NOTE | 2021-01-30 09:40 | NUR ---
PT RESTING QUIETLY IN BED. DENIES PAIN AT THIS TIME, BUT DOES VOICE DISCOMFORT WHEN MOVING IN BED. DENIES NEED FOR PAIN MED AT THIS TIME. SALINE LOC TO LEFT AC AND RIGHT WRIST. BOTH SITES WITHOUT REDNESS OR EDEMA. DRESSING C/D/I TO LEFT HIP. REFUSES SCD'S AT THIS TIME. PROVIDED EDUCATION AND IMPORTANCE OF, PT VOICES WILL REAPPLY LATER. DENIES FURTHER NEEDS AT THIS TIME. CL WITHIN REACH. ENCOURAGED TO CALL WITH NEEDS. CONTINUE POC
[2021-01-30 12:00] VITALS: BP 102/56
--- NOTE | 2021-01-30 15:34 | MORECARE ---
CASE MANAGEMENT DISCHARGE SUMMARY PATIENT: HARISH CABRERA UNIT: [id number] ADM DATE: 01/28/21 AGE: 70 : 52 SEX: M [facility] AUTHOR: AMRIT,DOC PHYSICIAN: REFERRING PHYSICIAN: HANS HYDE MD DATE OF SERVICE: 01/30/21 Case Management Discharge Planning Summary DCP REVIEW SUMMARY ANTICIPATED D/C DATE: EXPECTED LOS : CASE STATUS: DCP Initiated INITIAL REVIEW: 01/28/2021 INITIAL REVIEWER: Karina Guzman FINAL DISCHARGE DISPOSITION: : FINAL REVIEWER: FINAL REVIEW DATE: DCP Focus Questions & Answers QUESTION: ANSWER : PATIENT: HARISH CABRERA ENCOUNTER: [id number] MEDICAL RECORD#: [id number] ADMISSION DATE: 01/28/2021 DISCHARGE DATE: ATTENDING MD: HANS PHELAN : AGE: 70 MARITAL STATUS: M DC PLAN ID: [id number] FACILITY: [facility] PRINTED ON: 01/30/21 15:34 CT All edits/amendments must be made on the electronic document DICTATION DATE: 01/30/21 153 [employer] LABOURER: DM 01/30/21 1534 RPT#: [id number] DC DATE: STATUS: ADM IN [facility] [address] [place] [address] END OF REPORT
--- NOTE | 2021-01-30 16:39 | MORECARE ---
CASE MANAGEMENT DISCHARGE SUMMARY PATIENT: HARISH CABRERA UNIT: [id number] ADM DATE: 01/28/21 AGE: 70 : 52 SEX: M ROOM/BED: D.1208 AUTHOR: MARCIE MARCUS PHYSICIAN: REFERRING PHYSICIAN: HANS HYDE MD DATE OF SERVICE: 01/30/21 Case Management Discharge Planning Summary DCP REVIEW SUMMARY ANTICIPATED D/C DATE: EXPECTED LOS : CASE STATUS: DCP Initiated INITIAL REVIEW: 01/28/2021 INITIAL REVIEWER: Karina Guzman FINAL DISCHARGE DISPOSITION: : FINAL REVIEWER: FINAL REVIEW DATE: DCP Focus Questions & Answers DCP Screen QUESTION: ANSWER High Risk Factors: : Readmission within past 30 days DCP Evaluation QUESTION: ANSWER Patient and/or caregiver agree upon recommended discharge plan? : Yes Family / Caregiver's ability to cope with chronic illness: : a. Adequate (ability to meet patient's medical needs, ensures patient attends medical appts.) Patient's current cognitive status: : *Oriented to person, place, situation, time and present Patient's ability to cope with chronic illness : d. No chronic illness Does the patient have the ability to pay for or attain post discharge needs / services? : Yes Functional screen assessment: : Unable to manage ADLs without immediate ongoing assistance Family / Caregiver's ability to cope with chronic illness: : a. Adequate (ability to meet patient's medical needs, ensures patient attends medical appts.) Physical Status: : Independent with ADL's Is there a likelihood that the patient will require additional services to return to the preadmission environment? : Yes Living Arrangements: : Home with Spouse/Significant Other Partial Dependence, assistance required for: : Ambulation / Mobility Results of this evaluation have been discussed with: : Patient Patient with capacity for self-care or can be cared for in same environment as prior to hospitalization? : Yes Baseline cognitive status: : *Oriented to person, place, situation, time and present Preadmission facility can/cannot provide post hospital level of care needs: : Can - at same level of care as preadmission Medication Management: : Patient states can afford medications Planned post hospital services available for patient? : Yes Pharmacy name(s): : [facility] Planned post hospital services covered by insurance plan? : Yes Does Patient have transportation to get home and to follow-up medical appointments when discharged from the hospital? : Yes Would patient like to participate in any Care Coordination programs (if applicable): : Not applicable Does the patient have electricity at home? : Yes Does the patient have running water in their house? : Yes Equipment in use: : Walker - Rolling Equipment in use: : Shower Chair Equipment in use: : Bedside Commode Mental health screen: : No mental health history Psychosocial status: : Independent adult (65+) Abuse/Neglect: : None Resources / Services in place: : Outpatient rehabilitation Contact information for resources in use: : [facility] physical therapy DCP Re-evaluation QUESTION: ANSWER Would patient like to participate in any Care Coordination programs (if applicable): : Not applicable PATIENT: HARISH CABRERA ENCOUNTER: [id number] MEDICAL RECORD#: [id number] ADMISSION DATE: 01/28/2021 DISCHARGE DATE: ATTENDING MD: HANS PHELAN : AGE: 70 MARITAL STATUS: M DC PLAN ID: [id number] FACILITY: [facility] PRINTED ON: 01/30/21 16:39 CT All edits/amendments must be made on the electronic document DICTATION DATE: 01/30/21 163 NATUROPATHIC PHYSICIAN: AYDEN 01/30/21 163 RPT#: [id number] DC DATE: STATUS: ADM IN [facility] [address] [place] [address] END OF REPORT
--- NOTE | 2021-01-30 16:51 | MORECARE ---
CASE MANAGEMENT DISCHARGE SUMMARY PATIENT: HARISH CABRERA UNIT: [id number] ADM DATE: 01/28/21 AGE: 70 : 52 SEX: M ROOM/BED: D.1208 AUTHOR: AMRITDOC PHYSICIAN: REFERRING PHYSICIAN: HANS HYDE MD DATE OF SERVICE: 01/30/21 Case Management Discharge Planning Summary COMMENTS ENTERED DATE: 01/30/21 16:44 CT COMMENT TYPE: Discharge Planning REVIEWER: Karina Guzman CM spoke with patient to complete initial dc planning assessment. CM educated patient on the CM role and verbal consent given by patient to complete assessment. Patient lives at home with family. Patient is independent. At discharge patient plans to return home and feels this is a safe discharge. CM discussed availability of home health, rehab services, and medical equipment. Patient states that he has been going to [facility] and plans to resume with them upon d/c. CM faxed orders to [facility] and he is to resume therapy on Thursday02/04/21 @ 3 pm. Patient will have family to transport home. Patient denied known discharge needs at this time. D/C IMM and ROBERT signed. CM will continue to follow and will assist as needed with dc plans/needs. DCP REVIEW SUMMARY ANTICIPATED D/C DATE: EXPECTED LOS : CASE STATUS: DCP Initiated INITIAL REVIEW: 01/28/2021 INITIAL REVIEWER: Karina Guzman FINAL DISCHARGE DISPOSITION: : FINAL REVIEWER: FINAL REVIEW DATE: DCP Focus Questions & Answers DCP Screen QUESTION: ANSWER High Risk Factors: : Readmission within past 30 days DCP Evaluation QUESTION: ANSWER Patient and/or caregiver agree upon recommended discharge plan? : Yes Family / Caregiver's ability to cope with chronic illness: : a. Adequate (ability to meet patient's medical needs, ensures patient attends medical appts.) Patient's current cognitive status: : *Oriented to person, place, situation, time and present Patient's ability to cope with chronic illness : d. No chronic illness Does the patient have the ability to pay for or attain post discharge needs / services? : Yes Functional screen assessment: : Unable to manage ADLs without immediate ongoing assistance Family / Caregiver's ability to cope with chronic illness: : a. Adequate (ability to meet patient's medical needs, ensures patient attends medical appts.) Physical Status: : Independent with ADL's Is there a likelihood that the patient will require additional services to return to the preadmission environment? : Yes Living Arrangements: : Home with Spouse/Significant Other Partial Dependence, assistance required for: : Ambulation / Mobility Results of this evaluation have been discussed with: : Patient Patient with capacity for self-care or can be cared for in same environment as prior to hospitalization? : Yes Baseline cognitive status: : *Oriented to person, place, situation, time and present Preadmission facility can/cannot provide post hospital level of care needs: : Can - at same level of care as preadmission Medication Management: : Patient states can afford medications Planned post hospital services available for patient? : Yes Pharmacy name(s): : [facility] Planned post hospital services covered by insurance plan? : Yes Does Patient have transportation to get home and to follow-up medical appointments when discharged from the hospital? : Yes Would patient like to participate in any Care Coordination programs (if applicable): : Not applicable Does the patient have electricity at home? : Yes Does the patient have running water in their house? : Yes Equipment in use: : Walker - Rolling Equipment in use: : Shower Chair Equipment in use: : Bedside Commode Mental health screen: : No mental health history Psychosocial status: : Independent adult (65+) Abuse/Neglect: : None Resources / Services in place: : Outpatient rehabilitation Contact information for resources in use: : [facility] DCP Re-evaluation QUESTION: ANSWER Would patient like to participate in any Care Coordination programs (if applicable): : Not applicable PATIENT: HARISH CABRERA ENCOUNTER: [id number] MEDICAL RECORD#: [id number] ADMISSION DATE: 01/28/2021 DISCHARGE DATE: ATTENDING MD: HASN PHELAN : AGE: 70 MARITAL STATUS: M DC PLAN ID: [id number] FACILITY: [facility] PRINTED ON: 01/30/21 16:50 CT All edits/amendments must be made on the electronic document DICTATION DATE: 01/30/211649 ARTIFICIAL FLOWERS DYER: AYDEN 01/30/211649 RPT#: [id number] DC DATE: STATUS: ADM IN [facility] [address] [place] [address] END OF REPORT
--- NOTE | 2021-01-30 19:00 | NUR ---
RECEIVED SHIFT REPORT FROM HAL CAMPOS RN
--- NOTE | 2021-01-30 19:15 | NUR ---
IV BEEPING, THIS RN TO ROOM, VTBI ADJUSTED, INFORMED PT THAT I WILL BE BACK SHORTLY TO DO ASSESSMENT, PT VERBALIZES UNDERSTANDING, DENIES NEEDS AT THIS TIME, BED IN LOW POSITION, SIDE RAILS X 2, CALL LIGHT IN REACH
[2021-01-30 20:25] VITALS: BP 98/58
--- NOTE | 2021-01-30 20:25 | NUR ---
ASSESSMENT PER FLOW SHEET, VS OBTAINED, IV IN RIGHT WRIST INTACT WITH NO REDNESS OR EDEMA INFUSING 1/2NS AT KVO, SALINE LOCK TO LEFT AC INTACT WITH NO REDNESS OR EDEMA, DRESSING TO LEFT HIP CDI WITH NO DRAINAGE NOTED, PT REPORTS FLATUS, BM TODAY, AND USING URINAL WITH NO DIFFICULTY, PT RATES INC PAIN 12/12, INFORMED PT THAT I WILL BRING PAIN MED IN WITH 9PM MEDS IF DUE, PT STATES "OH, THANK YOU", PT INST ON AND DEMONSTRATED I.S. WITH GOOD EFFORT, REFUSES SCD'S, DENIES NEEDS AT THIS TIME
--- NOTE | 2021-01-30 21:31 | NUR ---
PT AWAKE, ADM 2100 MED AND PAIN MED PER MD ORDERS, SEE EMAR, DID NOT ADM COZAR DUE TO BP 98/58, PT ALSO SAID HE WOULD NOT TAKE IT WITH HIS BP BEING THAT LOW, PT DENIES FURTHER NEEDS AT THIS TIME
--- NOTE | 2021-01-30 22:02 | NUR ---
IV BEEPING, PT HAD SOMEHOW PULLED OUT BOTH IV'S, PT STATES "I DON'T KNOW HOW THAT HAPPENED, INFORMED PT THAT ANOTHER IV WILL NEED TO BE STARTED TOMORROW, PT VERBALIZES UNDERSTANDING, PT STATES "OH GOOD, YOU'RE GOING TO GIVE MY VEINS A BREAK TONIGHT", INFORMED PT YES, PT DENIES NEEDS AT THIS TIME
--- NOTE | 2021-01-31 00:21 | NUR ---
PT RESTING WITH EYES CLOSED, RESP QUIET, NO DISTRESS NOTED, LEFT UNDISTURBED AT THIS TIME
--- NOTE | 2021-01-31 02:00 | NUR ---
PT RESTING WITH EYES CLOSED, RESP QUIET, NO DISTRESS NOTED, LEFT UNDISTURBED AT THIS TIME
--- NOTE | 2021-01-31 02:45 | NUR ---
PT UP TO BEDSIDE COMMODE, VOIDED LARGE AMOUNT OF DARK YELLOW URINE, PT BACK TO BED, ADM PAIN MED PER MD ORDERS, SEE EMAR, WITH FRESH H20, PT DENIES FURTHER NEEDS
--- NOTE | 2021-01-31 04:21 | NUR ---
PT RESTING WITH EYES CLOSED, RESP QUIET, NO DISTRESS NOTED, LEFT UNDISTURBED AT THIS TIME
[2021-01-31 05:42] VITALS: BP 102/58
--- NOTE | 2021-01-31 05:42 | NUR ---
PT RESTING WITH EYES CLOSED, AROUSES TO SOFT VERBAL STIMULATION, VS OBTAINED, ADM 0600 MED PER MD ORDERS, SEE EMAR, PT RATES INC PAIN 01/12, DENIES NEEDS AT THIS TIME
[2021-01-31 07:30] VITALS: BP 112/65
--- NOTE | 2021-01-31 07:30 | NUR ---
AWAKE AND ALERT. ORIENTED X3. NO C/O AT THIS TIME. LUNGS ARE CLEAR BILATERALLY, USED IS INSTRUCTED. SKIN IS INTACT WITHOUT REDNESS EXCEPT INCISION TO LEFT HIP WHICH HAS A DRY INTACT DRESSING IN PLACE. DENIES NEEDS
[2021-01-31 07:31] LABS: BASOPHILS 0.2 % (0-2); EOSINOPHILS 0.8 % (0-7); HEMATOCRIT 25.3 % (42.0-54.0); HEMOGLOBIN 8.4 g/dL (13.5-17.5); IMMATURE GRANULOCYTES 0.3 % (0-5); LYMPHOCYTE ABS# 1.05 10x3/uL (1.32-3.57); LYMPHOCYTES 6.7 % (15-50); MCH 28.8 pg (26.0-34.0); MCHC 33.2 g/dL (31.0-37.0); MCV 86.6 fL (80.0-100.0); MEAN PLATELET VOLUME 10.6 fL (7.4-10.4); MONOCYTES 15.4 % (2-11); NEUTROPHIL ABS# 11.93 10x3/uL (1.78-5.38); NEUTROPHILS 76.6 % (40-80); PLATELET COUNT 246 10x3/uL (130-400); RBC 2.92 10x6/uL (4.20-6.10); RDW 13.6 % (11.5-14.5); WBC 15.6 10x3/uL (4.8-10.8)
[2021-01-31 07:53] LABS: ANION GAP 12.9 mmol/L (8-16); CALCIUM 7.8 mg/dL (8.5-10.1); CARBON DIOXIDE 26.7 mmol/L (21.0-32.0)
[2021-01-31 07:54] LABS: CREATININE - SERUM 1.5 mg/dL (0.6-1.3); PHOSPHOROUS 3.4 mg/dL (2.5-4.9); POTASSIUM - SERUM 4.6 mmol/L (3.5-5.1)
--- NOTE | 2021-01-31 08:43 | NUR ---
IV SITED TO LEFT FOREARM AFTER ONE ATTEMPT WITH 22G. TOLERATED WITHOUT C/O PAIN OR DISCOMFORT. REQUESTED AND GIVEN ONE PERCOCET PO FOR C/O LEFT HIP PAIN LEVEL 8. WILL MONITOR.
--- NOTE | 2021-01-31 09:15 | NUR ---
ATE ABOUT HALF OF BREAKFAST TRAY. UP TO BR WITH ONE PERSON MIN ASSIST AND RW. VOIDED CLEAR YELLOW URINE WITHOUT DIFFICULTY. REPOSITIONED IN BED FOR COMFORT.
--- NOTE | 2021-01-31 10:45 | NUR ---
AMBULATED IN HALLWAY WITH PT USING RW. UP IN CHAIR AT BEDSIDE AFTER AMBULATION. DENIES NEEDS.
[2021-01-31 11:11] VITALS: BP 98/64
--- NOTE | 2021-01-31 13:04 | NUR ---
ATE MOST OF LUNCH. REQUESTED AND GIVEN ONE PERCOCET PO FOR C/O LEFT HIP PAIN LEVEL 8. WILL MONITOR.
--- NOTE | 2021-01-31 13:05 | NUR ---
REHAB PRESCREEN RECEIVED. PATIENT IS NOT INTERESTED IN COMING TO INPATIENT REHAB. HE WISHES TO RETURN HOME AND RESUME HIS OUTPATIENT THERAPIES HE ALREADY HAD IN PLACE. THANK YOU FOR THE REFERRAL. DORA IBARRA RN CLINICAL LIAISON, INPATIENT [facility].
--- NOTE | 2021-01-31 14:37 | NUR ---
PATIENT IS NOW WANTING TO COME TO INPATIENT REHAB. I WILL START AGAIN ON HIS SCREEN AND IF HE MEETS CRITERIA, WILL SEE ABOUT BRINGING HIM TO THE REHAB UNIT. THANK YOU AGAIN FOR THIS REFERRAL. DORA IBARRA RN CLINICAL LIAISON, INPATIENT REHAB.
--- NOTE | 2021-01-31 14:42 | MORECARE ---
CASE MANAGEMENT DISCHARGE SUMMARY PATIENT: HARISH CABRERA UNIT: [id number] ADM DATE: 01/28/21 AGE: 70 : 52 SEX: M ROOM/BED: D.1208 AUTHOR: AMRIT,DOC PHYSICIAN: REFERRING PHYSICIAN: HANS HYDE MD DATE OF SERVICE: 01/31/21 Case Management Discharge Planning Summary COMMENTS ENTERED DATE: 01/31/21 14:33 CT COMMENT TYPE: Discharge Planning REVIEWER: Pamela Costa CM notified by nurse, Cookie, that patient wanted to go to [facility] at discharge. CM met with patient and he signed ROBERT for [facility]. CM notified Christnia at [facility] of referral and order for Rehab screen. Christina verbalized understanding. CM called [facility] and cancelled Outpatient therapy appointment. CM will continue to follow and assist with discharge planning. ENTERED DATE: 01/30/21 16:44 CT COMMENT TYPE: Discharge Planning REVIEWER: Karina Guzman CM spoke with patient to complete initial dc planning assessment. CM educated patient on the CM role and verbal consent given by patient to complete assessment. Patient lives at home with family. Patient is independent. At discharge patient plans to return home and feels this is a safe discharge. CM discussed availability of home health, rehab services, and medical equipment. Patient states that he has been going to [facility] and plans to resume with them upon d/c. CM faxed orders to [facility] and he is to resume therapy on Thursday02/04/21 @ 3 pm. Patient will have family to transport home. Patient denied known discharge needs at this time. D/C IMM and ROBERT signed. CM will continue to follow and will assist as needed with dc plans/needs. DCP REVIEW SUMMARY ANTICIPATED D/C DATE: EXPECTED LOS : CASE STATUS: DCP Initiated INITIAL REVIEW: 01/28/2021 INITIAL REVIEWER: Karina Guzman FINAL DISCHARGE DISPOSITION: : FINAL REVIEWER: FINAL REVIEW DATE: DCP Focus Questions & Answers DCP Screen QUESTION: ANSWER High Risk Factors: : Readmission within past 30 days DCP Evaluation QUESTION: ANSWER Patient's ability to cope with chronic illness : d. No chronic illness Patient's current cognitive status: : *Oriented to person, place, situation, time and present Family / Caregiver's ability to cope with chronic illness: : a. Adequate (ability to meet patient's medical needs, ensures patient attends medical appts.) Patient and/or caregiver agree upon recommended discharge plan? : Yes Physical Status: : Independent with ADL's Family / Caregiver's ability to cope with chronic illness: : a. Adequate (ability to meet patient's medical needs, ensures patient attends medical appts.) Functional screen assessment: : Unable to manage ADLs without immediate ongoing assistance Does the patient have the ability to pay for or attain post discharge needs / services? : Yes Partial Dependence, assistance required for: : Ambulation / Mobility Living Arrangements: : Home with Spouse/Significant Other Is there a likelihood that the patient will require additional services to return to the preadmission environment? : Yes Baseline cognitive status: : *Oriented to person, place, situation, time and present Patient with capacity for self-care or can be cared for in same environment as prior to hospitalization? : Yes Results of this evaluation have been discussed with: : Patient Preadmission facility can/cannot provide post hospital level of care needs: : Can - at same level of care as preadmission Medication Management: : Patient states can afford medications Pharmacy name(s): : [facility] Planned post hospital services available for patient? : Yes Does Patient have transportation to get home and to follow-up medical appointments when discharged from the hospital? : Yes Planned post hospital services covered by insurance plan? : Yes Would patient like to participate in any Care Coordination programs (if applicable): : Not applicable Does the patient have electricity at home? : Yes Does the patient have running water in their house? : Yes Equipment in use: : Bedside Commode Equipment in use: : Shower Chair Equipment in use: : Walker - Rolling Mental health screen: : No mental health history Psychosocial status: : Independent adult (65+) Abuse/Neglect: : None Resources / Services in place: : Outpatient rehabilitation Contact information for resources in use: : [facility] DCP Re-evaluation QUESTION: ANSWER Would patient like to participate in any Care Coordination programs (if applicable): : Not applicable PATIENT: HARISH CABRERA ENCOUNTER: [id number] MEDICAL RECORD#: [id number] ADMISSION DATE: 01/28/2021 DISCHARGE DATE: ATTENDING MD: HANS PHELAN : AGE: 70 MARITAL STATUS: M DC PLAN ID: [id number] FACILITY: [facility] PRINTED ON: 01/31/21 14:42 CT All edits/amendments must be made on the electronic document DICTATION DATE: 01/31/211441 DIAMOND SIZER AND SORTER: AYDEN 01/31/211441 RPT#: [id number] DC DATE: STATUS: ADM IN [facility] [address] [place] [address] END OF REPORT
[2021-01-31 16:35] VITALS: BP 102/60
--- NOTE | 2021-01-31 17:00 | NUR ---
REQUESTED AND GIVEN ONE PERCOCET PO FOR C/O LEFT HIP PAIN LEVEL 5. WILL MONITOR. OZIEL SERVED IN ROOM.
[2021-01-31] MEDS ORDERED: FLORAJEN DIGES1 EACH PO (17:06)
[2021-01-31] MEDS ORDERED: PROTONIX40 MG PO (17:06)
[2021-01-31] MEDS ORDERED: VISTARIL50 MG PO (17:06)
[2021-01-31] MEDS ORDERED: TORADOL IV (17:07)
[2021-01-31] MEDS ORDERED: PERCOCET 10-321 EAC1 PO (17:07)
[2021-01-31] MEDS ORDERED: PERCOCET 5-3251 TAB PO (17:07)
[2021-01-31] MEDS ORDERED: Narcan INJ IV (17:07)
[2021-01-31] MEDS ORDERED: ALBUTEROL2.5 MG/3 M UPD (17:07)
[2021-01-31] MEDS ORDERED: DILAUDID INJ2 MG/ML IV (17:07)
[2021-01-31] MEDS ORDERED: ROCEPHIN 1 GM/D51 G1 IV (17:07)
--- NOTE | 2021-01-31 17:07 | NUR ---
REQUESTED AND GIVEN ONE PERCOCET PO FOR C/O LEFT HIP PAIN LEVEL 5. WILL MONITOR.
--- NOTE | 2021-01-31 17:50 | NUR ---
ATE MOST OF SUPPER. DISCHARGED TO INPATIENT REHAB. DISCHARGE INSTRUCTIONS GIVEN BOTH VERBALLY AND WRITTEN. ALL QUESTIONS ANSWERED. DRESSING CHANGED TO LEFT HIP BEFORE TRANSFER. INCISION IS CLEAN DRY AND WELL APPROXIMATED WITH GLUE IN PLACE. ALL BELONGINGS WITH PATIENT AT THIS TIME. TRANSFERED VIA WC TO ROOM 1118A.
--- NOTE | 2021-01-31 18:08 | MORECARE ---
CASE MANAGEMENT DISCHARGE SUMMARY PATIENT: HARISH CABRERA UNIT: [id number] ADM DATE: 01/28/21 AGE: 70 : 52 SEX: M ROOM/BED: D.1208 AUTHOR: AMRIT,DOC PHYSICIAN: REFERRING PHYSICIAN: HANS HYDE MD DATE OF SERVICE: 01/31/21 Case Management Discharge Planning Summary COMMENTS ENTERED DATE: 01/31/21 14:33 CT COMMENT TYPE: Discharge Planning REVIEWER: Pamela Costa CM notified by nurse, Cookie, that patient wanted to go to [facility] at discharge. CM met with patient and he signed ROBERT for [facility]. CM notified Christina at [facility] of referral and order for Rehab screen. Christina verbalized understanding. CM called [facility] and cancelled Outpatient therapy appointment. CM will continue to follow and assist with discharge planning. ENTERED DATE: 01/30/21 16:44 CT COMMENT TYPE: Discharge Planning REVIEWER: Karina Guzman CM spoke with patient to complete initial dc planning assessment. CM educated patient on the CM role and verbal consent given by patient to complete assessment. Patient lives at home with family. Patient is independent. At discharge patient plans to return home and feels this is a safe discharge. CM discussed availability of home health, rehab services, and medical equipment. Patient states that he has been going to [facility] and plans to resume with them upon d/c. CM faxed orders to [facility] and he is to resume therapy on Thursday02/04/21 @ 3 pm. Patient will have family to transport home. Patient denied known discharge needs at this time. D/C IMM and ROBERT signed. CM will continue to follow and will assist as needed with dc plans/needs. DCP REVIEW SUMMARY ANTICIPATED D/C DATE: EXPECTED LOS : CASE STATUS: DCP Initiated INITIAL REVIEW: 01/28/2021 INITIAL REVIEWER: Karina Guzman FINAL DISCHARGE DISPOSITION: : FINAL REVIEWER: FINAL REVIEW DATE: DCP Focus Questions & Answers DCP Screen QUESTION: ANSWER High Risk Factors: : Readmission within past 30 days DCP Evaluation QUESTION: ANSWER Patient's ability to cope with chronic illness : d. No chronic illness Patient's current cognitive status: : *Oriented to person, place, situation, time and present Family / Caregiver's ability to cope with chronic illness: : a. Adequate (ability to meet patient's medical needs, ensures patient attends medical appts.) Patient and/or caregiver agree upon recommended discharge plan? : Yes Physical Status: : Independent with ADL's Family / Caregiver's ability to cope with chronic illness: : a. Adequate (ability to meet patient's medical needs, ensures patient attends medical appts.) Functional screen assessment: : Unable to manage ADLs without immediate ongoing assistance Does the patient have the ability to pay for or attain post discharge needs / services? : Yes Partial Dependence, assistance required for: : Ambulation / Mobility Living Arrangements: : Home with Spouse/Significant Other Is there a likelihood that the patient will require additional services to return to the preadmission environment? : Yes Baseline cognitive status: : *Oriented to person, place, situation, time and present Patient with capacity for self-care or can be cared for in same environment as prior to hospitalization? : Yes Results of this evaluation have been discussed with: : Patient Preadmission facility can/cannot provide post hospital level of care needs: : Can - at same level of care as preadmission Medication Management: : Patient states can afford medications Pharmacy name(s): : [facility] Planned post hospital services available for patient? : Yes Does Patient have transportation to get home and to follow-up medical appointments when discharged from the hospital? : Yes Planned post hospital services covered by insurance plan? : Yes Would patient like to participate in any Care Coordination programs (if applicable): : Not applicable Does the patient have electricity at home? : Yes Does the patient have running water in their house? : Yes Equipment in use: : Bedside Commode Equipment in use: : Shower Chair Equipment in use: : Walker - Rolling Mental health screen: : No mental health history Psychosocial status: : Independent adult (65+) Abuse/Neglect: : None Resources / Services in place: : Outpatient rehabilitation Contact information for resources in use: : [facility] DCP Re-evaluation QUESTION: ANSWER Would patient like to participate in any Care Coordination programs (if applicable): : Not applicable PATIENT: HARISH CABRERA ENCOUNTER: [id number] MEDICAL RECORD#: [id number] ADMISSION DATE: 01/28/2021 DISCHARGE DATE: 01/31/2021 ATTENDING MD: HANS PHELAN : AGE: 70 MARITAL STATUS: M DC PLAN ID: [id number] FACILITY: [facility] PRINTED ON: 01/31/21 18:08 CT All edits/amendments must be made on the electronic document DICTATION DATE: 01/31/211807 PROPOSAL LEAD WRITER: AYDEN 01/31/211807 RPT#: [id number] DC DATE:01/31/21 STATUS: DIS IN [facility] [address] [place] [address] END OF REPORT
== END 2021-01-31 18:03 | DRG 468 ==
LOC: D.ER 15:58 → D.M3 18:56
PROVIDERS: Family Medicine; Orthopaedic Surgery; ADMIT Emergency Medicine; ATTEND Emergency Medicine
PROC: 0SPB0JZ Removal of Synthetic Substitute from Left Hip Joint, Open Approach (ICD-10-PCS; 2021-01-29)
PROC: 0SRB0JZ Replacement of Left Hip Joint with Synthetic Substitute, Open Approach (ICD-10-PCS; principal; 2021-01-29 15:00)
DX: M97.02XA Periprosthetic fracture around internal prosthetic left hip joint, initial encounter (principal); W11.XXXA Fall on and from ladder, initial encounter; I10 Essential (primary) hypertension; E78.5 Hyperlipidemia, unspecified; K21.9 Gastro-esophageal reflux disease without esophagitis; D64.9 Anemia, unspecified; G62.9 Polyneuropathy, unspecified; Z87.891 Personal history of nicotine dependence

== ENCOUNTER 2021-01-31 17:47 | Inpatient (IN) | payer MEDICARE, OTHER ==
[~2021-01-31] VITALS: Ht 165.1 cm; Wt 61.2 kg
[~2021-01-31 17:47] MED LIST changes: +ALBUTEROL2.5 MG/3 M UPD; +CALCIUM 600 +1 EAC3 PO; +DILAUDID INJ2 MG/ML IV; +FLORAJEN DIGES1 EACH PO; +Narcan INJ IV; +PERCOCET 5-3251 TAB PO; +PROTONIX40 MG PO; +REMERON15 MG PO; +ROCEPHIN 1 GM/D51 G1 IV; +TORADOL IV; +VISTARIL50 MG PO
--- NOTE | 2021-01-31 18:50 | NUR ---
BEDSIDE REPORT COMPLETE. RECEIVED PT LYING IN BED. ALERT AND ORIENTED X4. DENIES ANY NEEDS. C/O LEFT HIP DISCOMFORT. LEFT HIP DRESSING INTACT. LEFT FOREARM IV NOTED. CALL LIGHT AND WATER WITHIN REACH. FALL PRECAUTIONS IN PLACE. CPOC
--- NOTE | 2021-01-31 20:46 | NUR ---
PT ADMITTED FOR INPATIENT REHAB TO DR. MEJIA WITH WORKING DIAGNOSIS LEFT PROXIMAL FEMUR FRACTURE. PT IS ALERT AND ORIENTED X4. C/O 03/14 RADIATING ACHING PAIN LEFT HIP. REQUESTS PERCOCET WITH [facility]. PT WEARS GLASSES. REMOVED TELEMETRY THERE IS NO ORDER FOR THIS AND VERIFIED WAS ONLY FOR SURGICAL AND POST OP PURPOSE WAS TO BE REMOVED BEFORE TRANSFER AND WAS OVERLOOKED. CALLED TELEMETRY AND ADVISED PT WAS TRANSFERED TO REHAB FROM [facility] 3 RM 1208 AND TELEMTRY WAS DC. LEFT FOREARM IV PATENT. NO SIGNS OF INFECTION NOTED. DRESSING AND SWAB CAP INTACT. PT WAS ORIENTED TO ROOM AND UNIT. PT STATES HIS ROOMMATE HAS BEEN VERY HELPFUL SINCE HIS ARRIVAL. 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 RIGHT GREAT TOE NO TOENAIL NOTED REMOVED SEVERAL YEARS AGO D/T FUNGUS PER PT. KNEE HIGH TEDS REMOVED AND SKIN INSPECTED NO SKIN BREAKDOWN NOTED. CURTIS HOSE DONNED ON WELL NON SKID SOCKS. LEFT HIP DRESSING INTACT CHANGED 01/31/21 BEFORE TRANSFER PER PT DRESSING DATED. NO REDNESS OR WARMTH AT INCISION SITE. DERMABOND CLOSURE NOTED UNDER DRESSING. NO OXYGEN NOTED. BP 100/52 HR 93 O2 SAT 94% ROOM AIR. PT DENIES ANY OTHER NEEDS. NO DISTRESS NOTED. CALL LIGHT AND WATER WITHIN REACH. FALL PRECAUTIONS IN PLACE. CPOC
[2021-01-31 21:23] VITALS: BP 110/62
[2021-01-31 23:10] VITALS: BP 100/52; BMI 22.5
--- NOTE | 2021-02-01 01:56 | NUR ---
PT LYING IN BED SUPINE EYES CLOSED RESTING. RR EVEN AND UNLABORED. CALL LIGHT WITHIN REACH. CHARLIE ALARM ON
--- NOTE | 2021-02-01 07:29 | NUR ---
PT LYING IN BED AWAKE. DENIES ANY NEEDS. SOME DISCOMFORT VOICED. NO PAIN MEDS REQUESTED. CALL LIGHT WITHIN REACH.
[2021-02-01 07:48] VITALS: BP 113/73
--- NOTE | 2021-02-01 08:00 | NUR ---
PT RESTING IN BED WITH EYES OPEN CALL LIGHT IN REACH WILL MONITER
[2021-02-01 08:10] LABS: BASOPHILS 0.1 % (0-2); HEMATOCRIT 27.2 % (42.0-54.0); HEMOGLOBIN 8.8 g/dL (13.5-17.5); IMMATURE GRANULOCYTES 0.1 % (0-5); LYMPHOCYTE ABS# 0.97 10x3/uL (1.32-3.57); LYMPHOCYTES 6.4 % (15-50); MCH 28.4 pg (26.0-34.0); MCHC 32.4 g/dL (31.0-37.0); MCV 87.7 fL (80.0-100.0); MEAN PLATELET VOLUME 10.3 fL (7.4-10.4); MONOCYTES 12.8 % (2-11); NEUTROPHIL ABS# 11.71 10x3/uL (1.78-5.38); NEUTROPHILS 77.6 % (40-80); RDW 13.4 % (11.5-14.5); WBC 15.1 10x3/uL (4.8-10.8)
[2021-02-01 08:11] LABS: PLATELET COUNT 341 10x3/uL (130-400)
[2021-02-01 08:31] LABS: ANION GAP 13.8 mmol/L (8-16); CALCIUM 8.2 mg/dL (8.5-10.1); CARBON DIOXIDE 26.3 mmol/L (21.0-32.0); CREATININE - SERUM 1.4 mg/dL (0.6-1.3); POTASSIUM - SERUM 4.1 mmol/L (3.5-5.1)
[2021-02-01 12:31] VITALS: Ht 165.1 cm; Wt 61.2 kg
--- NOTE | 2021-02-01 15:08 | NUR ---
PATIENT ADMITTED TO [facility] FROM ACUTE FLOOR. HIS PCP IS AT [facility]. AT DISCHARGE HE WOULD LIKE TO RETURN TO [facility] FOR THERAPY. DME AT HOME IS BEDSIDE COMMODE, SHOWER CHAIR AND A ROLLING WALKER. WILL CONTINUE TO FOLLOW WITH PATIENT.
--- NOTE | 2021-02-01 16:45 | NUR ---
I have reviewed this patient and I concur with the Shift Assessment completed by the Licensed Practical Nurse today this shift.
--- NOTE | 2021-02-01 18:04 | NUR ---
PT RESTING IN BED WITH EYES OPEN CALL LIGHT IN REACH WILL MONITER
--- NOTE | 2021-02-01 19:25 | NUR ---
AWAKE AND ALERT. RESTING IN BED WITH RESPIRATIONS UNLABORED. LEFT ARM SALINE LOCK INTACT. NO ACUTE DISTRESS NOTED. CALL LIGHT IN REACH.
[2021-02-01 19:34] VITALS: BP 105/57
--- NOTE | 2021-02-02 06:26 | NUR ---
QUIET HOURS. NO ACUTE CHANGES IN CONDITION THIS SHIFT. RESTING IN BED WITH NO DISTRESS NOTED.
[2021-02-02 07:00] VITALS: BP 106/73
--- NOTE | 2021-02-02 08:00 | NUR ---
SHIFT ASSMT COMPLETED.CL IN REACH.EATING BREAKFAST.
--- NOTE | 2021-02-02 12:30 | NUR ---
IV INFILTREATED 'CATH DC'D.RESITED TO RT AC AFTER X3 ATTEMPTS.
[2021-02-02 19:25] VITALS: BP 116/65
--- NOTE | 2021-02-02 19:33 | NUR ---
AWAKE AND ALERT. RESTING IN BED WITH RESPIRATIONS UNLABORED. NO DISTRESS NOTED. STATES HE HAD A GOOD DAY. NO DISTRESS NOTED. CALL LIGHT IN REACH.
--- NOTE | 2021-02-03 05:12 | NUR ---
QUIET HOURS. NO ACUTE CHANGES IN CONDITION THIS SHIFT. RESTING IN BED WITH NO DISTRESS NOTED.
[2021-02-03 08:00] VITALS: BP 118/75
[2021-02-03 19:00] VITALS: BP 139/57
--- NOTE | 2021-02-03 19:57 | NUR ---
AWAKE AND ALERT, MEDICATED FOR PAIN JUST BEFORE SHIFT CHANGE. NOW HAS TEMPERATURE OF 101.6. LEFT LEG RED SWOLLEN AND HOT TO TOUCH. DR MEJIA CALLED AND MESSAGE LEFT. PATIENT IS RESTING WITH RESPIRATIONS UNLABORED. CALL LIGHT IN REACH.
--- NOTE | 2021-02-03 20:24 | NUR ---
CHRISS KUMARI APRN CALLED AND HE GAVE NEW ORDERS FOR BLOOD CULTURES X 2. ORDERS PLACED. WILL MONITOR FOR RESULTS.
--- NOTE | 2021-02-04 06:26 | NUR ---
QUIET HOURS. AFEBRILE 98.9 . UP TO SHOWER WITH NURSE JOURNEYMAN PATTERNMAKER. TOLERATED WELL. LEFT HIP REMAINS SWOLLEN AND RED AND WARM TO TOUCH. LAB PENDING THIS AM. STATES HE DOES FEEL A LITTLE BETTER NOW THAT HE DOESNT HAVE A FEVER. RESTING IN BED WITH NO DISTRESS NOTED.
[2021-02-04 08:30] VITALS: BP 113/72
[2021-02-04 09:04] LABS: BASOPHILS 0.4 % (0-2); EOSINOPHILS 6.7 % (0-7); HEMATOCRIT 25.4 % (42.0-54.0); HEMOGLOBIN 8.3 g/dL (13.5-17.5); IMMATURE GRANULOCYTES 0.7 % (0-5); LYMPHOCYTE ABS# 1.22 10x3/uL (1.32-3.57); LYMPHOCYTES 8.2 % (15-50); MCH 28.5 pg (26.0-34.0); MCHC 32.7 g/dL (31.0-37.0); MCV 87.3 fL (80.0-100.0); MEAN PLATELET VOLUME 9.8 fL (7.4-10.4); MONOCYTES 18.8 % (2-11); NEUTROPHIL ABS# 9.67 10x3/uL (1.78-5.38); NEUTROPHILS 65.2 % (40-80); PLATELET COUNT 647 10x3/uL (130-400); RBC 2.91 10x6/uL (4.20-6.10); RDW 13.5 % (11.5-14.5); WBC 14.8 10x3/uL (4.8-10.8)
[2021-02-04 09:29] LABS: ANION GAP 13.6 mmol/L (8-16); CALCIUM 8.9 mg/dL (8.5-10.1); CARBON DIOXIDE 25.1 mmol/L (21.0-32.0); CREATININE - SERUM 1.4 mg/dL (0.6-1.3); POTASSIUM - SERUM 3.7 mmol/L (3.5-5.1)
--- NOTE | 2021-02-04 13:37 | NUR ---
LAYING IN BED WATCHING TV. DENIES INCREASED PAIN TO LEFT HIP. LEFT HIP IS SWOLLEN AND A LITTLE MORE WARM THAN RT SIDE BUT NO DRAINAGE, REDNESS OR ODOR NOTED. DSG CHANGED TO INCISION. HAS GLUE STRIP ON TOP OF INCISION. CALL LIGHT IN REACH
--- NOTE | 2021-02-04 16:01 | NUR ---
PATIENT PCP IS DR. ANDRÉS CABALLERO.
--- NOTE | 2021-02-04 18:53 | NUR ---
BEDSIDE REPORT COMPLETE. RECEIVED PT LYING IN BED. ALERT AND ORIENTED X4. RIGHT AC IV INFILTRATED. INFUSION HAS COMPLETED. D/C IV WITH CATH TIP INTACT. LEFT HIP INCISION SLIGHTLY RED, NO WARMTH, EDEMA NOTED. REQUESTS PAIN MEDICATION WITH HS MEDS. CALL LIGHT AND WATER WITHIN REACH. CHARLIE ALARM ON. CPOC
[2021-02-04 21:12] VITALS: BP 108/64
--- NOTE | 2021-02-04 22:31 | NUR ---
LEFT FOREARM IV 20G X1 ATTEMPT STARTED. FLUSHES AND DRAWS WITHOUT DIFFICULTY. DRESSING APPLIED. PT TOLERATED WELL
--- NOTE | 2021-02-05 00:43 | NUR ---
PT LYING IN BED SUPINE EYES CLOSED RESTING. RR EVEN AND UNLABORED. CHARLIE ALARM ON.
--- NOTE | 2021-02-05 04:05 | NUR ---
PT LYING IN BED SUPINE EYES CLOSED RESTING. RR EVEN AND UNLABORED. 300ML URINE EMPTIED FROM URINAL
[2021-02-05 07:46] VITALS: BP 126/75
[2021-02-05 08:27] LABS: BASOPHILS 0.4 % (0-2); EOSINOPHILS 8.8 % (0-7); HEMATOCRIT 24.2 % (42.0-54.0); HEMOGLOBIN 7.9 g/dL (13.5-17.5); IMMATURE GRANULOCYTES 0.9 % (0-5); LYMPHOCYTE ABS# 1.41 10x3/uL (1.32-3.57); LYMPHOCYTES 10.2 % (15-50); MCH 28.2 pg (26.0-34.0); MCHC 32.6 g/dL (31.0-37.0); MCV 86.4 fL (80.0-100.0); MEAN PLATELET VOLUME 9.4 fL (7.4-10.4); MONOCYTES 17.9 % (2-11); NEUTROPHIL ABS# 8.55 10x3/uL (1.78-5.38); NEUTROPHILS 61.8 % (40-80); PLATELET COUNT 734 10x3/uL (130-400); RDW 13.6 % (11.5-14.5); WBC 13.8 10x3/uL (4.8-10.8)
[2021-02-05 09:09] LABS: ANION GAP 14.8 mmol/L (8-16); CALCIUM 8.6 mg/dL (8.5-10.1); CARBON DIOXIDE 26.3 mmol/L (21.0-32.0); CREATININE - SERUM 1.6 mg/dL (0.6-1.3); POTASSIUM - SERUM 4.1 mmol/L (3.5-5.1)
--- NOTE | 2021-02-05 12:19 | NUR ---
Nutrition Follow-up: Diet: Regular PO intake: ~78% average x last 9 meals Last BM: none recorded since admit x 5 days now Wt: 135# (02/01/21) Meds noted: probiotics, abx, miralax, protonix, remeron Labs noted: BUN 20(H), Cr 1.6(H), GFR 46(L) Recommend continue current diet. Will continue to honor food preferences. RD will follow-up within 7 days.
--- NOTE | 2021-02-05 19:00 | NUR ---
BEDSIDE REPORT COMPLETE. RECEIVED PT LYING IN BED. ALERT AND ORIENTED X4. BED ALARM WAIVER SIGNED. C/O 04/13 LEFT HIP DEEP BURNING PAIN. REQUESTS PAIN MEDICATION. NO OTHER CONCERNS VOICED. ICE PACK PROVIDED. LEFT FOREARM IV PATENT. NO SIGNS OF INFILTRATION NOTED. DRESSING INTACT. LEFT HIP DRESSING INTACT. SWELLING NOTED. CALL LIGHT AND WATER WITHIN REACH. CPOC
[2021-02-05 20:28] VITALS: BP 107/57
--- NOTE | 2021-02-05 20:28 | RHP ---
PATIENT: HARISH CABRERA MEDICAL RECORD: [id number] ACCOUNT: [id number] [facility] AD[facility] DATE: 01/31/21 REHABILITATION HISTORY AND PHYSICAL EXAMINATION POST ADMISSION PHYSICIAN EXAMINATION ADMITTING DIAGNOSIS: Proximal femur fracture. HISTORY OF PRESENT ILLNESS: The patient is a 70-year-old gentleman who presented to the ER after a fall from a step ladder on 01/27/2021 of which ER findings were negative at that time, but on 01/28/2021, he stood up and heard a pop in his left hip and had sudden pain. He was unable to ambulate. 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 Image showed a total hip arthroplasty with development of a displaced periprosthetic fracture involving the intertrochanteric region and proximal shaft. Orthopedic was consulted. He was admitted to the floor for evaluation, monitoring, and treatment. Ortho stated he was a high risk for infections and refracture, bleeding, and also would probably need blood products and have some continued pain, loss of motion, leg length discrepancy, and other problems with this and they decided to go on with the surgery. On 01/29/2021, he underwent a left total hip arthroplasty for which his incision was closed with a [id number] running suture. The patient has had some problems with his blood pressure being up and down. He did have acute blood loss anemia and required blood products. 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 Just prior to the fall, he had just been able to ambulate without assistance device. Per physical therapy now, he is moderate assist for left lower extremity management and trunk support. He uses trapeze and assist trunk scooting to get to the edge of the bed and min assist sit to stand from the edge of the bed. He has gone 100 feet with a rolling walker with steadying. The patient would definitely benefit from acute rehab for improving his functional mobility, strength and gait stability to facilitate a safe transfer and discharged to home. His labs will also need to be monitored closely. We are watching for any change in his cognition, medications and adjustment. He has got impaired mobility. He is a high fall risk. He has got gait disturbance, self-care deficits. These are all barriers to his discharge home. He will require all these therapies and medical management in order to get back to his prior level of functioning or close as possible. Comorbidities include acute kidney injury, decreased mobility, decrease in physical functioning, difficulty walking, dyslipidemia, electrolyte imbalance hypercalcemia, hypomagnesemia, hyponatremia, neuropathy, and postop anemia. PAST MEDICAL HISTORY: Significant for neuropathy, cataracts, glaucoma, allergies, hepatitis, hypertension, and dyslipidemia. PAST SURGICAL HISTORY: Includes a hemorrhoidectomy. He has had an appendectomy, C5-C6 fusion, bunionectomy, left total hip. ALLERGIES: TETRACYCLINE. CURRENT MEDICATIONS: Fornix one cap daily, calcium 500 mg daily, famotidine 20 mg daily, vitamin D 1000 units daily, Rocephin 1 gram q.24 hours, Norvasc 5 mg daily, polyethylene glycol 17 grams in 8 ounces of water daily, Protonix 40 mg daily, atorvastatin 40 mg daily, Eliquis 2.5 mg b.i.d., Remeron 15 mg at bedtime, melatonin 9 mg q.h.s., Cozaar 100 mg q.h.s., Xalatan eyedrops one drop q.h.s., Neurontin 300 mg b.i.d., Percocet 5/325 one tab q.4 hours p.r.n., Zofran HISTORY AND PHYSICAL [id number] KIMBERLY CABRERAY 4 mg q.6 hours p.r.n., hydroxyzine as needed, Ventolin updrafts as needed, polyethylene glycol 17 grams in 8 ounces of water daily. HABITS: No current alcohol or tobacco use. FAMILY HISTORY: Noncontributory. SOCIAL HISTORY: The patient hopes to return back home and get back to his prior level of functioning. REVIEW OF SYSTEMS: GENERAL: Does complain of little weakness and fatigue. HEENT: Denies cold, cough, congestion. CARDIOVASCULAR: Denies any chest pain. PHYSICAL EXAMINATION: VITAL SIGNS: Stable, afebrile. GENERAL: He is well-developed gentleman in no acute distress, alert upon exam. HEENT: Normocephalic and atraumatic. Mucosa moist. NECK: Supple. No adenopathy. LUNGS: Clear at this time. No wheezing or rales. HEART: Regular rate and rhythm. No murmurs, rubs, or gallops. ABDOMEN: Soft, benign, nondistended. Positive bowel sounds times 4. EXTREMITIES: No clubbing, cyanosis, or edema. NEUROLOGIC: He does have some weakness. LABORATORY DATA: White count is 15.1, H and H 8.8 and 27.2 and platelet count is 341. Sodium 144, potassium 4.1, BUN and creatinine of 18 and 1.4 and blood sugar is noted to be 83. ASSESSMENT: This is a 70-year-old gentleman admitted to the rehab with a working diagnosis of proximal femur fracture. The patient has potential to make improvement. We instituted the following multidisciplinary therapies including, not limited to physical, occupational, respiratory, speech, nutritional services, prosthetics and orthotics. Given his complex medical condition and risks for more complications, rehabilitation services cannot be provided at a low level of care such as [facility] facility. PLAN: 1. Admit to [facility] for inpatient therapy to include the following disciplines; A. Physical therapy to improve gait, all transfer skills and bed mobility to a modified independent level. B. Occupational therapy to improve activities of daily living. C. Case management to help with discharge planning and placement options. D. Nutrition to assist with nutritional needs. E. Rehabilitation nursing to assist in monitoring the patient's underlying medical condition and to assist with any type of bowel or bladder management. 2. The patient's current medications and Medicare will be continued. 3. We will keep him on antibiotics secondary to his high risk of infections. 4. We will watch his blood counts closely. I will transfuse again if necessary. I will see him again probably in the a.m. TRANSINT:[id number] Voice Confirmation ID: [id number] DOCUMENT ID: [id number] HISTORY AND PHYSICAL [id number] HARISH CABRERA notes whether there has been none or any medical/functional change since admission: - ROSA MARIA attests patient continues to be appropriate for IRF: - WILFREDO MEJIA MD at 2028 CC: [id number] DICTATION DATE: 02/01/21 0854 MEDICAL INSURANCE CLAIMS PROCESSOR: 02/01/21 1013 ADM IN [facility] [address] [place] [address]
--- NOTE | 2021-02-05 23:00 | NUR ---
LEFT FOREARM IV LEAKING. DC WITH CATH TIP INTACT. STARTED 22G LEFT FOREARM IV X1 ATTEMPT. DRESSING ADHERED. FLUSHES AND DRAWS WITHOUT DIFFICULTY. PT TOLERATED WELL
--- NOTE | 2021-02-06 02:15 | NUR ---
PT LYING IN BED ON LEFT SIDE EYES CLOSED RESTING. RR EVEN AND UNLABORED.
--- NOTE | 2021-02-06 06:27 | NUR ---
PT LYING IN BED ON LEFT SIDE EYES CLOSED RESTING. NO DISTRESS NOTED. NO ACUTE CHANGES IN CONDITION THIS SHIFT. CALL LIGHT WITHIN REACH.
[2021-02-06 07:38] VITALS: BP 96/51
--- NOTE | 2021-02-06 08:00 | NUR ---
SHIFT ASSMT COMPLETED.
[2021-02-06 09:52] LABS: BASOPHILS 0.4 % (0-2); EOSINOPHILS 7.1 % (0-7); HEMATOCRIT 24.7 % (42.0-54.0); HEMOGLOBIN 7.8 g/dL (13.5-17.5); IMMATURE GRANULOCYTES 1.1 % (0-5); LYMPHOCYTE ABS# 2.28 10x3/uL (1.32-3.57); LYMPHOCYTES 14.3 % (15-50); MCH 27.9 pg (26.0-34.0); MCHC 31.6 g/dL (31.0-37.0); MCV 88.2 fL (80.0-100.0); MONOCYTES 12.4 % (2-11); NEUTROPHIL ABS# 10.31 10x3/uL (1.78-5.38); NEUTROPHILS 64.7 % (40-80); PLATELET COUNT 822 10x3/uL (130-400); RDW 13.8 % (11.5-14.5); WBC 15.9 10x3/uL (4.8-10.8)
--- NOTE | 2021-02-06 16:00 | NUR ---
ENJOYING OUTSIDE PATIO.
--- NOTE | 2021-02-06 16:18 | NUR ---
CARE TEAM MEETING: PATIENT ATTENDED THE MEETING. HIS QUESTIONS AND CONCERNS WERE ADDRESSED. HIS TENTAIVE DISCHARGE DATE IS 02/13/21. WILL XONTINUE TO FOLLOW WITH PATIENT.
--- NOTE | 2021-02-06 19:57 | NUR ---
AWAKE AND ALERT. RESTING IN BED WITH RESPIRATIONS UNLABORED. NO DISTRESS NOTED. CALL LIGHT IN REACH,
[2021-02-06 20:30] VITALS: BP 98/63
--- NOTE | 2021-02-07 05:45 | NUR ---
QUIET HOURS. NO ACUTE CHANGES IN CONDITION THIS SHIFT. RESTING IN BED WITH NO DISTRESS NOTED. CALL LIGHT IN REACH.
[2021-02-07 08:14] VITALS: BP 110/61
--- NOTE | 2021-02-07 19:34 | NUR ---
AWAKE AND ALERT. RESTING IN BED WITH RESPIRATIONS UNLABORED. DRESSING INTACT TO LEFT HIP. SALINE LOCK TO LEFT FOREARM INTACT. NO DISTRESS NOTED.
[2021-02-07 20:36] VITALS: BP 107/67
--- NOTE | 2021-02-08 05:36 | NUR ---
QUIET HOURS. NO ACUTE CHANGES IN CONDITION THIS SHIFT. RESTING IN BED WITH NO DISTRESS NOTED. SALINE LOCK TO LEFT FOREARM INTACT.
[2021-02-08 08:08] LABS: BASOPHILS 0.8 % (0-2); EOSINOPHILS 6.2 % (0-7); IMMATURE GRANULOCYTES 1.4 % (0-5); LYMPHOCYTE ABS# 1.71 10x3/uL (1.32-3.57); LYMPHOCYTES 14.5 % (15-50); MCV 87.5 fL (80.0-100.0); MEAN PLATELET VOLUME 9.3 fL (7.4-10.4); MONOCYTES 13.3 % (2-11); NEUTROPHIL ABS# 7.54 10x3/uL (1.78-5.38); NEUTROPHILS 63.8 % (40-80); PLATELET COUNT 795 10x3/uL (130-400); RDW 13.9 % (11.5-14.5)
[2021-02-08 08:09] LABS: HEMOGLOBIN 9.6 g/dL (13.5-17.5); RBC 3.43 10x6/uL (4.20-6.10); WBC 11.8 10x3/uL (4.8-10.8)
[2021-02-08 08:11] VITALS: BP 130/70
[2021-02-08 08:11] LABS: ANION GAP 11.9 mmol/L (8-16); CALCIUM 9.2 mg/dL (8.5-10.1); CARBON DIOXIDE 27.1 mmol/L (21.0-32.0); CREATININE - SERUM 1.3 mg/dL (0.6-1.3)
--- NOTE | 2021-02-08 09:00 | NUR ---
SITTING IN RECLINER IN ROOM WATCHING TV. STATES STILL HAVING SOME PAIN TO LEFT HIP. MOVES AROUND IN ROOM ON HIS OWN. DENIES NEEDS. CALL LIGHT IN REACH
--- NOTE | 2021-02-08 19:00 | NUR ---
BEDSIDE REPORT COMPLETE. RECEIVED PT SITTING UP IN CHAIR. ALERT AND ORIENTED X4. DENIES ANY NEEDS. C/O LEFT HIP DISCOMFORT 4/10 DEEP BURNING. LEFT FOREARM IV PATENT. NO S/S OF INFECTION NOTED. DRESSING AND SWAB CAP INTACT. LEFT ANTERIOR HIP DRESSING C/D/I NO DATED ON DRESSING NOTED. CALL LIGHT AND WATER WITHIN REACH. BED/CHAIR ALARM WAIVER SIGNED ON FILE. CPOC
[2021-02-08 21:20] VITALS: BP 105/57
--- NOTE | 2021-02-08 22:00 | NUR ---
REMOVED LEFT HIP DRESSING. NO DRAINAGE NOTED. DERMABOND CLOSURE INTACT. CLEANSED SURGICAL SITE WITH WOUND CLEANSER, PAT DRY WITH 4X4, PAINTED WITH BETADINE, COVERED WITH MEPILEX AG DRESSING. DATE, TIME, INITIALED. +2 EDEMA NOTED TO LEFT THIGH AREA. NO REDNESS OR WARMTH NOTED. PT TOLERATED WELL
--- NOTE | 2021-02-09 03:08 | NUR ---
PT CALLED REQUESTING PAIN MEDICATION FOR 7/10 LEFT HIP DEEP BURNING DISCOMFORT. ADMININSTERED VISTIRIL 50MG AND PERCOCET 10/325MG PER ORDERS. NO OTHER NEEDS VOICED.
--- NOTE | 2021-02-09 05:38 | NUR ---
PT SITTING UP IN BED. COFFEE PROVIDED PER PT REQUEST. PT DENIES ANY OTHER NEEDS. NO ACUTE CHANGES IN CONDITION THIS SHIFT. CALL LIGHT WITHIN REACH
[2021-02-09 08:00] VITALS: BP 112/68
--- NOTE | 2021-02-09 18:53 | NUR ---
BEDSIDE REPORT COMPLETE. RECEIVED PT SITTING UP IN CHAIR. ALERT AND ORIENTED X4. C/O 4/10 DEEP BURNING ACHE DISCOMFORT IN LEFT HIP AREA. +1 EDEMA NOTED IN LEFT HIP AREA. DRESSING C/D/I. NO WARMTH OR REDNESS NOTED. LEFT FOREARM IV PATENT. DRESSING AND SWAB CAP INTACT. CALL LIGHT AND WATER WITHIN REACH. FALL PRECAUTIONS IN PLACE. BED ALARM WAIVER ON FILE. CPOC
[2021-02-09 19:00] VITALS: BP 97/58
--- NOTE | 2021-02-10 01:47 | NUR ---
PT LYING IN BED SUPINE EYES CLOSED RESTING. RR EVEN AND UNLABORED. CALL LIGHT WITHIN REACH
--- NOTE | 2021-02-10 05:11 | NUR ---
PT LYING IN BED AWAKE. DENIES ANY NEEDS OR PAIN. NO DISTRESS NOTED. NO ACUTE CHANGES IN CONDITION THIS SHIFT. CALL LIGHT AND WATER WITHIN REACH.
[2021-02-10 08:00] VITALS: BP 120/67
--- NOTE | 2021-02-10 18:52 | NUR ---
BEDSIDE REPORT COMPLETE. RECEIVED PT SITTING UP IN BED. ALERT AND ORIENTED X4. DENIES ANY NEEDS. C/O 01/12 LEFT HIP AND THIGH BURNING ACHING PAIN. PAIN MEDICATION WITH HS MEDS REQUESTED. LEFT ANTERIOR HIP DRESSING C/D/I. SWELLING HAS IMPROVED +1 EDEMA NOTED. CALL LIGHT AND WATER WITHIN REACH. BED/CHAIR ALARM WAIVER ON FILE. CPOC
[2021-02-10 19:00] VITALS: BP 107/61
--- NOTE | 2021-02-10 23:57 | NUR ---
PT LYING IN BED ON LEFT SIDE EYES CLOSED RESTING. RR EVEN AND UNLABORED. CALL LIGHT WITHIN REACH.
--- NOTE | 2021-02-11 04:50 | NUR ---
PT LYING IN BED SUPINE EYES CLOSED RESTING. RR EVEN AND UNLABORED. NO ACUTE CHANGES IN CONDITION THIS SHIFT. CALL LIGHT WITHIN REACH.
[2021-02-11 07:57] VITALS: BP 109/71
[2021-02-11 08:26] LABS: ANION GAP 12.7 mmol/L (8-16); CREATININE - SERUM 1.6 mg/dL (0.6-1.3); POTASSIUM - SERUM 4.7 mmol/L (3.5-5.1)
[2021-02-11 08:36] LABS: BASOPHILS 0.8 % (0-2); EOSINOPHILS 4.5 % (0-7); HEMATOCRIT 25.2 % (42.0-54.0); HEMOGLOBIN 8.1 g/dL (13.5-17.5); IMMATURE GRANULOCYTES 0.6 % (0-5); LYMPHOCYTE ABS# 2.32 10x3/uL (1.32-3.57); LYMPHOCYTES 14.8 % (15-50); MCH 28.2 pg (26.0-34.0); MCHC 32.1 g/dL (31.0-37.0); MCV 87.8 fL (80.0-100.0); MEAN PLATELET VOLUME 9.1 fL (7.4-10.4); MONOCYTES 11.8 % (2-11); NEUTROPHIL ABS# 10.61 10x3/uL (1.78-5.38); NEUTROPHILS 67.5 % (40-80); RBC 2.87 10x6/uL (4.20-6.10); RDW 13.8 % (11.5-14.5); WBC 15.7 10x3/uL (4.8-10.8)
[2021-02-11 08:37] LABS: PLATELET COUNT 969 10x3/uL (130-400)
--- NOTE | 2021-02-11 11:03 | NUR ---
Nutrition Re-Assessment Diet: Regular PO intake: ~78% average; ate 100% of breakfast meal. Patient at asleep at time of RD visit. Last BM: 02/10/21 Wt: 135# (02/01/21), no new weight Meds noted: probiotics, miralax, remeron Labs noted: Cr 1.6(H), GFR 46(L) Nutrition diagnosis: Patient remains at low nutrition risk at this time. RD will follow-up within 7 days.
--- NOTE | 2021-02-11 12:42 | NUR ---
SITTING UP IN CHAIR IN ROOM FOR LUNCH. HAS BEEN UP WORKING WITH THERAPY. PAIN MEDS GIVEN ORDERED AND REQUESTED. SWELLING STILL NOTED TO LEFT HIP BUT NO S/S INFECTION OR BRUISING. DSG OVER INCISION IS CDI. CALL LIGHT IN REACH
--- NOTE | 2021-02-11 19:42 | NUR ---
AWAKE AND ALERT. RESTING IN BED WITH RESPIRATIONS UNLABORED. NO DISTRESS NOTED. CALL LIGHT IN REACH.
[2021-02-11 19:58] VITALS: BP 111/83
--- NOTE | 2021-02-12 05:28 | NUR ---
QUIET HOURS. NO ACUTE CHANGES IN CONDITION THIS SHIFT. RESTING IN BED WITH NO DISTRESS NOTED.
[2021-02-12 06:35] LABS: BASOPHILS 0.5 % (0-2); EOSINOPHILS 4.6 % (0-7); HEMATOCRIT 29.6 % (42.0-54.0); HEMOGLOBIN 9.6 g/dL (13.5-17.5); IMMATURE GRANULOCYTES 0.6 % (0-5); LYMPHOCYTE ABS# 1.78 10x3/uL (1.32-3.57); MCH 28.5 pg (26.0-34.0); MCHC 32.4 g/dL (31.0-37.0); MCV 87.8 fL (80.0-100.0); MEAN PLATELET VOLUME 9.1 fL (7.4-10.4); MONOCYTES 14.2 % (2-11); NEUTROPHIL ABS# 10.13 10x3/uL (1.78-5.38); NEUTROPHILS 68.1 % (40-80); PLATELET COUNT 902 10x3/uL (130-400); RBC 3.37 10x6/uL (4.20-6.10); WBC 14.9 10x3/uL (4.8-10.8)
[2021-02-12 06:52] LABS: ANION GAP 12.8 mmol/L (8-16); CALCIUM 9.3 mg/dL (8.5-10.1); CARBON DIOXIDE 24.7 mmol/L (21.0-32.0); CREATININE - SERUM 1.4 mg/dL (0.6-1.3); POTASSIUM - SERUM 4.5 mmol/L (3.5-5.1)
[2021-02-12 07:34] VITALS: BP 127/80
[2021-02-12 19:58] VITALS: BP 103/71
--- NOTE | 2021-02-12 20:00 | NUR ---
AWAKE AND ALERT. RESTING IN BED WITH RESPIRATIONS UNLABORED. NO DISTRESS NOTED. CALL LIGHT IN REACH. MEDICATE FOR PAIN.
--- NOTE | 2021-02-13 04:59 | NUR ---
QUIET HOURS. NO ACUTE CHANGES IN CONDITION THIS SHIFT. RESTING IN BED WITH NO DISTRESS NOTED.
[2021-02-13 07:35] LABS: BASOPHILS 0.6 % (0-2); EOSINOPHILS 3.5 % (0-7); HEMATOCRIT 31.5 % (42.0-54.0); IMMATURE GRANULOCYTES 0.4 % (0-5); LYMPHOCYTE ABS# 2.23 10x3/uL (1.32-3.57); LYMPHOCYTES 15.9 % (15-50); MCHC 31.7 g/dL (31.0-37.0); MCV 88.2 fL (80.0-100.0); MEAN PLATELET VOLUME 9.3 fL (7.4-10.4); MONOCYTES 13.2 % (2-11); NEUTROPHIL ABS# 9.31 10x3/uL (1.78-5.38); NEUTROPHILS 66.4 % (40-80); PLATELET COUNT 948 10x3/uL (130-400); RBC 3.57 10x6/uL (4.20-6.10)
[2021-02-13 07:51] VITALS: BP 137/56
[2021-02-13 07:51] LABS: ANION GAP 13.2 mmol/L (8-16); CALCIUM 9.5 mg/dL (8.5-10.1); CARBON DIOXIDE 26.1 mmol/L (21.0-32.0); CREATININE - SERUM 1.1 mg/dL (0.6-1.3); POTASSIUM - SERUM 4.3 mmol/L (3.5-5.1)
[2021-02-13] MEDS ORDERED: PERCOCET 10-321 EAC1 PO (08:45)
--- NOTE | 2021-02-13 09:50 | NUR ---
PATIENT DISCHARGING HOME WITH FAMILY TODAY. [facility] ON [facility] TO ASSIST PATIENT AT HOME. NO NEW DME NEEDED AT THIS TIME. DR. ANDRÉS CABALLERO 02/15/21 @ 8:30, DR. RAI 02/27/21 @ 1:40. ROBERT SIGNED, IMM SERVED AND EXPLAINED, ONE GIVEN TO PATIENT AND ONE FILED IN CHART. DISCHARGE INSTRUCTIONS FAXED TO PCP AND REVIEWED WITH PATIENT.
== END 2021-02-13 12:50 | disposition home health service (06) | DRG 560 ==
LOC: D.REHAB 17:47
PROVIDERS: ADMIT Emergency Medicine; ATTEND Emergency Medicine
DX: M97.02XD Periprosthetic fracture around internal prosthetic left hip joint, subsequent encounter (principal); N17.9 Acute kidney failure, unspecified; E87.1 Hypo-osmolality and hyponatremia; R26.2 Difficulty in walking, not elsewhere classified; E78.5 Hyperlipidemia, unspecified; E87.8 Other disorders of electrolyte and fluid balance, not elsewhere classified; E83.52 Hypercalcemia; E83.42 Hypomagnesemia; G62.9 Polyneuropathy, unspecified; D64.9 Anemia, unspecified; I10 Essential (primary) hypertension; M19.90 Unspecified osteoarthritis, unspecified site